=== PATIENT | female | born 1945 | race Caucasian/White ===

== ENCOUNTER → 2020-06-20 11:02 | Outpatient (CLI) | payer MEDICARE, SELFPAY ==
--- NOTE | ~2020-06-20 | DEXA_ITS ---
Bone Density Report Name: Jaylene Funes Age: 74 Sex: Female Ethnicity: White Date of : 1945 Indication: postmenopausal; screening for osteoporosis; height loss; asthma or emphysema; hysterectomy; Referring Provider: NELLY, CONRADO Torrez Study: Bone densitometry was performed. Exam Date: June 20, 2020 Accession number: [id number] Bone Density: Region BMD T-score Z-score Classification AP Spine (L1, L3, L4) 1.075 0.2 2.5 Normal Femoral Neck (Left) 0.814 -0.3 1.6 Normal Total Hip (Left) 1.011 0.6 2.2 Normal Femoral Neck (Right) 0.828 -0.2 1.8 Normal Total Hip (Right) 0.984 0.3 2.0 Normal Total Hip Mean 0.998 0.5 2.1 Normal World Health Organization criteria for BMD impression classify patients as: Normal (T-score at or above -1.0), Osteopenia (T-score between -1.0 and -2.5), or Osteoporosis (T-score at or below -2.5). 10-year Fracture Risk: FRAX not reported because: All T-scores for Spine Total, Hip Total, Femoral Neck at or above -1.0 Clinical Information Provided by Patient: Has the following medical conditions: Asthma or Emphysema, Hysterectomy Patient maximum height was 62 Menopause Age: 37 No regular weight bearing exercise Drinks caffeinated beverages Onset of menses at age 16 Number of children 2 Impression: The patient has normal bone mass. Discussion: BONE DENSITY IS ABOVE THE MINIMUM DESIRABLE LEVEL AT ALL SKELETAL SITES TESTED. This patient?s bone mineral density is above the minimum desirable level (T-score -1.0 or better) at all sites measured. The patient should follow a healthful lifestyle (good nutrition with adequate calcium and vitamin D, and appropriate weight-bearing exercise). Follow-Up: Consider repeating this study in 5 years or sooner if there is some new clinical indication. Reported by: MANUEL on 06/20/2020 11:26:00 AM. Reviewed, dictated and finalized at location AJosephine BARAJAS
== END ==
PROVIDERS: PCP Internal Medicine; Visit Provider Internal Medicine
DX: Z13.820 Encounter for screening for osteoporosis (principal); Z78.0 Asymptomatic menopausal state
CPT/HCPCS: 77080

== ENCOUNTER → 2020-07-05 12:29 | Outpatient (CLI) | payer MEDICARE, SELFPAY ==
--- NOTE | ~2020-07-05 | MM_ITS ---
EXAMINATION: MM screening fernando BI w alyson HISTORY: Screening TECHNIQUE: Craniocaudal and mediolateral oblique 3-D tomosynthesis images were obtained and synthetic 2-D images were generated. CAD analysis was submitted and interpreted. COMPARISON: Comparison to multiple prior studies sequentially, with oldest reviewed study dated 01/2013. BREAST PARENCHYMAL COMPOSITION: There are scattered areas of fibroglandular density. FINDINGS: There is no evidence of suspicious mass, calcification, or architectural distortion to sugg est malignancy in either breast. There has been no suspicious interval change. IMPRESSION: 1. No mammographic evidence of malignancy. 2. Recommend routine screening mammography in one year. BI-RADS Category 1: Negative Reviewed, dictated and finalized at location A.
== END ==
PROVIDERS: PCP Internal Medicine; Visit Provider Internal Medicine
DX: Z12.31 Encounter for screening mammogram for malignant neoplasm of breast (principal)
CPT/HCPCS: 77063; 77067

== ENCOUNTER → 2020-08-04 10:07 | Outpatient (CLI) | payer MEDICARE, SELFPAY ==
--- NOTE | ~2020-08-04 | CT_ITS ---
EXAMINATION: CT lung screening DATE: 08/04/2020 10:24 INDICATION: Personal history of nicotine dependence, prior smoker with 40 pack year history TECHNIQUE: Computed tomography (CT) of the chest was performed without intravenous contrast. The dose -length product (DLP) was 199.73 mGy-cm. Automated exposure control and iterative reconstruction tech Single Touch Systems were employed. COMPARISON: 07/10/2019 FINDINGS: There is moderate emphysema. There is a stable 6 mm nodule of the left upper lobe on image 46. There is no pleural effusion or pneumothorax. No pathologically enlarged thoracic lymph nodes are identified. The heart size is normal. There is enlargement of the main and central pulmonary arterie s, consistent with pulmonary hypertension. Calcified coronary artery atherosclerosis is noted. There is severe thoracic spondylosis. IMPRESSION: 1. Lung-RADS category 2: Benign appearance or behavior. Continue annual screening with noncontrast lo w-dose chest CT in 12 months. Reviewed, dictated and finalized at location B. IMPRESSION: 1. Lung-RADS category 2: Benign appearance or behavior. Continue annual screeni ng with noncontrast low-dose chest CT in 12 months.
== END ==
PROVIDERS: PCP Internal Medicine; Visit Provider Nurse Practitioner Family
DX: Z12.2 Encounter for screening for malignant neoplasm of respiratory organs (principal); Z87.891 Personal history of nicotine dependence
CPT/HCPCS: G0297

== ENCOUNTER 2021-12-07 08:55 | Outpatient (CLI) | payer MEDICARE, SELFPAY ==
--- NOTE | 2021-12-07 09:00 | ECG_ITS ---
Measurements Intervals [place] Rate: 60 P: 61 ME: 152 QRS: -62 QRSD: 106 T: 64 QT: 443 QTc: 444 Interpretive Statements SINUS RHYTHM WITH SINUS ARRHYTHMIA INCOMPLETE RIGHT BUNDLE BRANCH BLOCK LEFT ANTERIOR FASCICULAR BLOCK CANNOT RULE OUT SEPTAL INFARCT, AGE INDETERMINATE BASELINE ARTIFACT- V5-V6 ABNORMAL ECG Electronically Signed On 12-07-2021 9:28:45 CLINICAL PSYCHOLOGY PROFESSOR by Yovani Hatfield D.O.
[2021-12-07 09:35] LABS: Anion Gap 7 mmol/L (8-16); Blood Urea Nitrogen 14 mg/dL (7-17); Calcium 9.6 mg/dL (8.4-10.2); Carbon Dioxide 35 mmol/L (22-30); Chloride 101 mmol/L (98-107); Estimated Glomerular Filt Rate 54; Glucose 131 mg/dL (65-110); Sodium 143 mmol/L (137-145)
== END 2021-12-07 08:56 | disposition home or self-care (01) ==
LOC: ANHSURGERY 08:59
PROVIDERS: Anesthesiology; PCP Internal Medicine; Visit Provider Otolaryngology
DX: Z01.818 Encounter for other preprocedural examination (principal); I10 Essential (primary) hypertension; I45.10 Unspecified right bundle-branch block; I44.4 Left anterior fascicular block
CPT/HCPCS: 36415; 80048; 93005

== ENCOUNTER 2021-12-12 00:40 | Day surgery (SDC) | payer MEDICARE, SELFPAY ==
[2021-12-06 12:40] VITALS: BMI 38.7
--- NOTE | 2021-12-06 12:49 | PC.NURSE ---
Report to the Outpatient Waiting Room, entrance under the green pavilion located off [facility], at time _0630 on date __12/12/21 . OR Time: . - You and your visitor will be asked a series of questions to screen for COVID 19 for your protection. - A mask is required within the hospital. - Only one visitor is allowed at this time. Patient visitors will be guided where to wait when not with patient. Preoperative COVID Testing Requirements: No COVID Test needed if: (proof is required; if not received patient will have Rapid Test prior to entry) - Patient has received COVID Vaccine at least 14 days prior to procedure date or - Patient has positive COVID test result within last 90 days of surgery date. COVID Test needed if above criteria is not met If not COVID vaccinated a COVID test must be conducted within 72 hours of surgery and patient is asked to isolate self from time of testing until procedure. You will go to the [facility] for your COVID testing. The [facility] site is located at the corner of [address] [facility]. You will only be called if COVID results are positive and your surgeon may reschedule your elective surgery date. Patients may have clear liquids (water, carbonated beverages, clear teas, apple juice) until 3 hours prior to surgery with a maximum of 20 ounces. - No food from midnight until time of surgery - Infants may have breast milk until 4 hours before surgery, infant formula 6 hours prior to surgery. - Children will be allowed to drink immediately following surgery. If applicable, please bring a bottle or sippy cup to assist with drinking. Juice, water, soda, and popsicles are readily available. For infants on formula, please bring formula the day of surgery. Pacifiers are allowed. Take the following medications with a SIP of water the morning of surgery: ___INHALERS,AMLODIPINE,CARVEDILOL,_FLUOXETINE,LEVOTHYROXINE Medications to discontinue per physician ____ALL VITAMINS AND SUPPLEMENTS 3 DAYS PRE OP Date to take last dose__12/08/21 Please no make-up, nail georgian, hairspray, perfume, deodorant, or body powder the day of surgery. No jewelry (including any body piercings) or valuables the day of surgery, leave them at home. Please take a shower or bath the night before, or the morning of, surgery with an antibacterial soap. Wear comfortable, loose fitting clothing. Children are encouraged to wear pajamas. - Jewelry must be removed prior to entering the operating room. Rings and piercings that are not removed may be cut off. - The hospital will not accept responsibility for valuables. - Please leave all valuables, including medications, at home the day of surgery. If you are going home after surgery, a licensed crew car driver must drive you home. - NO public transportation without another adult. - We recommend that an adult stay with you for 24 hours following discharge. - We also recommend that you do not drive, make important decision, drink alcoholic beverages, or take any drugs that were not prescribed by your health care provider for at least 24 hours after your discharge time. Follow any additional instructions given to you from your surgeon. Telephone instructions given to PATIENT and asked if any additional questions and then verbalized understanding. Patient advised to call surgeon office or pre surgery nurse liaison [phone] if any additional questions.
--- NOTE | 2021-12-11 08:58 | PM.IMHP ---
H&P: HPI History of Present Illness Date/Time: 12/11/21 08:58 Chief Complaint: chronic sinusitis nasal polyps nasal obstruction nasal congestion recurrent sinusitis Narrative: patient presents for planned surgical procedure. No change in symptoms no change in medical history. Review of Systems Constitutional: Constitutional: Denies fatigue, Denies fever(s) and Denies lethargy Eyes: Eyes: Denies blurry vision and Denies change in vision ENT: Reports as per HPI Cardiovascular: Cardiovascular: Denies chest pain Respiratory: Respiratory: Denies cough Endocrine: Endocrine: Denies fatigue Hematologic/Lymphatic: Hematologic/Lymphatic: Denies easy bleeding, Denies easy bruising and Denies lymphadenopathy Allergic/Immunologic: Allergic/Immunologic: Denies seasonal rhinorrhea [facility] Past Medical History Medical History Chronic obstructive pulmonary disease Exercise hypoxemia Family History Family History Sibling Patient's brother is in good health Family history of chronic obstructive pulmonary disease Hypertension Father Acute myocardial infarction, Onset Age: 52 Hypertension Heart disease Mother Family history of respiratory disorder, Onset Age: 80 Family history of chronic obstructive pulmonary disease, Onset Age: 80 Family history of congestive heart failure, Onset Age: 80 Cerebrovascular accident Asthma Social History Social History Smoking packs per day: 2 Smoking cigarettes per day: 40.0 Years smoked: 20 Smoking pack-years: 40.00 Smoking status: Former smoker Tobacco type: cigarettes Smoking end date: 11/25/07 Alcohol intake: never Substance use: never Substance use type: does not use Spiritual care concerns: No Meds Home Medications and Allergies Home Medications Medication Instructions Recorded Confirmed Type albuterol sulfate 2.5 mg/0.5 mL 2.5 mg INHALATION PRN PRN 01/05/20 12/06/21 History solution for nebulization albuterol sulfate 90 mcg/actuation 1 inhalation INHALATION Q4-6H PRN 01/05/20 12/06/21 History breath activated powder inhaler,sensor amlodipine 2.5 mg tablet 2.5 mg PO DAILY 01/05/20 12/06/21 History aspirin 81 mg tablet,delayed 81 mg PO DAILY 01/05/20 12/06/21 History release carvedilol 25 mg tablet 25 mg PO Q12H 01/05/20 12/06/21 History fluticasone fur. 100 mcg-umeclid 1 inhalation INHALATION DAILY 01/05/20 12/06/21 History 62.5 mcg-vilant 25 mcg inhalat.powder levothyroxine 125 mcg tablet 125 mcg PO DAILY 01/05/20 12/06/21 History lisinopril 40 mg tablet 40 mg PO DAILY 01/05/20 12/06/21 History multivitamin 1 cap PO DAILY 01/05/20 12/06/21 History simvastatin 20 mg tablet 20 mg PO DAILY 01/05/20 12/06/21 History furosemide 40 mg tablet 40 mg PO BID tablet 07/05/20 12/06/21 History fluoxetine 20 mg tablet See Rx Instructions .ROUTE 11/20/21 12/06/21 Rx .COMPLEX #90 tablet budesonide 0.25 mg/2 mL suspension See Rx Instructions .ROUTE 11/30/21 12/06/21 Rx for nebulization .COMPLEX #60 ml prednisone 10 mg tablet 10 mg PO DAILY #5 tablet 12/06/21 12/06/21 Rx Allergies Allergy/AdvReac Type Severity Reaction Status Date / Time No Known Allergies Allergy Verified 12/06/21 12:35 Exam Const: General: cooperative, healthy appearing, comfortable, well developed and alert HENMT: Head: normal to inspection, normocephalic and atraumatic Ears: hearing grossly normal bilaterally, external ears normal, TM's normal bilaterally and EAC's normal General nose exam: Normal external nose present, Normal nares present and nasal polyps ( Polyps present) Face and sinus: normal facial exam Mouth: Yes Normal oral and palatal mucosa present, Yes lip normal, Yes tongue normal, Yes oropharynx normal and Yes moist mucous membranes Teeth and
--- NOTE | 2021-12-11 13:53 | WPDANESEPPF ---
Anes - Initial Pre Proc Eval Procedure: Operation Date: 12/12/21 08:00 Proposed Procedures p Image Guided Endoscopic Polypectomy, Bilateral Maxillary Antrostomy, Bilateral Total Ethmoidectomy, Left Sphenoidotomy, Left Frontal Sinusotomy - Kirby Sierra MD Date/Time: 12/11/21 13:53 Surgeon: Kirby Sierra MD Pre Op Diagnosis: chronic sinusitis Patient Data Age: 76 Gender: F Height: 1.57 m Weight: 96.2 kg Allergies Allergy/AdvReac Type Severity Reaction Status Date / Time No Known Allergies Allergy Verified 12/12/21 06:09 Home Medications Medication Instructions Recorded Confirmed Type albuterol sulfate 2.5 mg/0.5 mL 2.5 mg INHALATION PRN PRN 01/05/20 12/12/21 History solution for nebulization albuterol sulfate 90 mcg/actuation 1 inhalation INHALATION Q4-6H PRN 01/05/20 12/12/21 History breath activated powder inhaler,sensor amlodipine 2.5 mg tablet 2.5 mg PO DAILY 01/05/20 12/12/21 History aspirin 81 mg tablet,delayed 81 mg PO DAILY 01/05/20 12/12/21 History release carvedilol 25 mg tablet 25 mg PO Q12H 01/05/20 12/12/21 History fluticasone fur. 100 mcg-umeclid 1 inhalation INHALATION DAILY 01/05/20 12/12/21 History 62.5 mcg-vilant 25 mcg inhalat.powder levothyroxine 125 mcg tablet 125 mcg PO DAILY 01/05/20 12/12/21 History lisinopril 40 mg tablet 40 mg PO DAILY 01/05/20 12/12/21 History multivitamin 1 cap PO DAILY 01/05/20 12/12/21 History simvastatin 20 mg tablet 20 mg PO DAILY 01/05/20 12/12/21 History furosemide 40 mg tablet 40 mg PO BID tablet 07/05/20 12/12/21 History fluoxetine 20 mg tablet See Rx Instructions .ROUTE 11/20/21 12/12/21 Rx .COMPLEX #90 tablet budesonide 0.25 mg/2 mL suspension See Rx Instructions .ROUTE 11/30/21 12/12/21 Rx for nebulization .COMPLEX #60 ml ECG: Date of Service: 12/07/21 Procedure(s): CA 12 lead EKG Accession Number(s): [id number] cc: ~ Measurements Intervals [place] Rate: 60 P: 61 VA: 152 QRS: -62 QRSD: 106 T: 64 QT: 443 QTc: 444 Interpretive Statements SINUS RHYTHM WITH SINUS ARRHYTHMIA INCOMPLETE RIGHT BUNDLE BRANCH BLOCK LEFT ANTERIOR FASCICULAR BLOCK CANNOT RULE OUT SEPTAL INFARCT, AGE INDETERMINATE BASELINE ARTIFACT- V5-V6 ABNORMAL ECG Electronically Signed On 12-07-2021 9:28:45 CITY CONTROLLER by Yovani Hatfield D.O. Patient hx anesthesia problems: none Family hx anesthesia problems: none Results Review: All pre-operative results and documents have been reviewed as part of the pre-operative evaluation. [facility] Past Medical History Medical History (Updated 12/11/21 @ 13:54 by Liborio Armstrong MD) Asthma Chronic obstructive pulmonary disease Chronic sinusitis Depression Exercise hypoxemia Hyperlipidemia Hypertension RAFAEL (obstructive sleep apnea) Sleep apnea Family History Family History Sibling Patient's brother is in good health Family history of chronic obstructive pulmonary disease Hypertension Father Acute myocardial infarction, Onset Age: 52 Hypertension Heart disease Mother Family history of respiratory disorder, Onset Age: 80 Family history of chronic obstructive pulmonary disease, Onset Age: 80 Family history of congestive heart failure, Onset Age: 80 Cerebrovascular accident Asthma Social History Social History Smoking packs per day: 2 Smoking cigarettes per day: 40.0 Years smoked: 20 Smoking pack-years: 40.00 Smoking status: Former smoker Tobacco type: cigarettes Smoking end date: 11/25/07 Alcohol intake: never Substance use: never Substance use type:
[2021-12-12] VITALS (24 sets, daily range): BP systolic 107–145; BP diastolic 50–89; PULSE 54–74; RESP 14–20; TEMP 36.3–37; O2SAT 71–95
[2021-12-12] MEDS: ACETAMINOPHEN 500 MG TABLET 1000 MG PO (06:17)
[2021-12-12] MEDS: LACTATED RINGERS 1,000 ML 30 ML IV CONT ×3 (06:37→13:58)
--- NOTE | 2021-12-12 07:14 | WPDHPUPDATE1 ---
History and Physical Update Update Date/Time: 12/12/21 07:14 History and Physical has been reviewed, including an updated exam of the patient. There are NO changes in the patient's condition. Risks, benefits, and alternatives have been discussed and questions answered. Patient agrees to proceed with procedure.
[2021-12-12] MEDS: ceFAZolin 2 GM/D5W 50 ML 2 GM/50 ML BAG IVPB (07:31)
[2021-12-12] MEDS: OXYMETAZOLINE HCL 0.05% NAS 15 ML BTL (*BKC) 1 SPRAY NASAL (08:04)
[2021-12-12] MEDS: LIDO 1%/EPINEPHRINE 1:100,000 50 ML VIAL 30 ML INFILTRATE (09:07)
--- NOTE | 2021-12-12 09:30 | W.PM.PROC2 ---
Procedure Note - Detailed Date of Procedure 12/12/21 Pre-op Diagnosis chronic sinusitis, nasal polyps, nasal tumor, pedrito bullosa bilaterally, nasal obstruction, nasal congestion Post-op Diagnosis same Procedure Performed 1. Bilateral section pedrito bullosa, 2. Polypectomy, 3 bilateral endoscopic image guided maxillary antrostomy, 4. Bilateral endoscopic total ethmoidectomies image guided, 5. Left-sided image guided endoscopic sphenoidotomy, 6. Left-sided image guided endoscopic frontal sinusotomy Surgeon Kirby Sierra MD Anesthesia general Indications See above Findings Polypoid mass bilaterally medial to the middle turbinate left greater than right debrided to skull base. Polypoid edema of the operated cells/sinuses left greater than right scant mucoid purulence on the left. No complications Description of Procedure Patient correctly identified consent verified. Patient brought operating room. Time-out performed. Image guidance initiated general anesthesia induced endotracheal tube secured taped left lower lip. Afrin-soaked pledgets placed for 5 minutes then removed. Patient prepped and draped. Second time-out performed. 0 degree endoscope utilized bilateral nasal passages exam with the aforementioned findings noted. Polypoid mass debrided on the right side with image guided microdebrider to skull base it was medial to the middle turbinate. Was also biopsied. Pedrito resected after being injected with 1 cc of 1% lidocaine with 1 100,000 parts epinephrine. This was the only type of anesthetic utilized. Cut inferiorly with a straight through cut and then resected with a straight through cut microdebrider. Maxillary antrostomy to performed bilaterally using straight through cut double ball tip probe and backbiter. Great care was taken not to enter the orbit which overhang somewhat into the nasal passage. Total ethmoidectomy performed bilaterally using Kerrison image guided straight suction and image guided microdebrider. Great care was taken not to enter the skull base or the orbit. The left had some polypoid edema and mucoid purulence the right only had mild polypoid edema. On the left side the sphenoid os was located with the image guided suction and opened with 1 in 3 Kerrison polypoid edema was located hears well. 70 degree scope was then utilized to perform left-sided frontal sinusotomy with image guided suction Hosemann punch and Cobra. This was easily cannulated again there was polypoid edema here. On the left side was much more tumor/polyp tissue medial to the middle turbinate which was debrided to the skull base. Bleeding was controlled using the intermittent application of Afrin-soaked pledgets. Following the procedure the middle turbinates were medialized and held in place using NasoPore packing sorry Nova pack packing. Total blood loss approximately 100 cc I performed all dictated portions of the procedure. Left-sided mass was also biopsied. There were no complications. Care the patient was turned over to Anesthesiology. Estimated Blood Loss 100 Drains No Packing Yes (Nova pack) Pathology yes Complications No immediate complications Condition stable Disposition PACU
--- NOTE | 2021-12-12 09:55 | SUR.PHASEI ---
0944 - drip pad changed. blood dripping from nose. pt indicates that she is swallowing blood. dr. araujo paged and at bedside. dr. araujo at bedside assessing pt.
[2021-12-12] MEDS: TRANEXAMIC ACID 1,000 MG/10 ML AMPUL 1000 MG IV PUSH (10:54)
--- NOTE | 2021-12-12 11:33 | SUR.PHASEI ---
1130 - dr. arguelles called and okayed to go to op recovery
--- NOTE | 2021-12-12 12:45 | WPDHPUPDATE1 ---
History and Physical Update Update Date/Time: 12/12/21 12:45 Patient had postoperative hemorrhage necessitating operative intervention. Shared decision was made to go to the OR for control of postoperative epistaxis. Will need 0 degree endoscope as well as suction Bovie electrocautery. Thank you
--- NOTE | 2021-12-12 13:12 | SUR.PHASEII ---
1200 - Dr. Sierra in room. Aware of O2 sats and bleeding. Suctioning of mouth and nose and drip pad changed by Dr. Sierra. Continue to monitor. 1210 - Switched from nasal cannula to face mask per Dr. Sierra. Dr. Sierra in room examining pt. Continue to monitor. 1215 - Pt's son given update on pt condition re: bleeding and O2 sats. 1220 - Dr. Sierra in room examining pt. Rhino rockets placed in bilateral nares by Dr. Sierra. Continue to monitor. 1240 - Dr. Sierra in room examining pt. Decision made to return to OR for control of post-operative epitaxis. OR notified. Continue to monitor. 1250 - Pt transferred to OR per stretcher. 1255 - Pt's son given update of return to OR. Procedure and recovery estimated time discussed with son. No further questions at this time.
--- NOTE | 2021-12-12 13:50 | W.PM.PROC2 ---
Procedure Note - Detailed Date of Procedure 12/12/21 Pre-op Diagnosis chronic sinusitis Post-op Diagnosis same Procedure Performed Nasal endoscopy control of epistaxis with Bovie suction electrocautery Surgeon Kirby Sierra MD Anesthesia general Indications Epistaxis Findings Again the polypoid tissue medial to the middle turbinates was oozing blood this was cauterized, there was also blood emanating from the left posterior septal artery region this artery was completely cauterized and taken. Following the procedure everything appeared much more hemostatic and there is no active bleeding. Nasal sorry no pack was again placed Description of Procedure Patient correctly identified consent verified procedure marked urgent. Patient brought operating room. Time-out performed. General anesthesia induced I was there to assist. Endotracheal tube secured taped the left lower lip. Patient prepped and draped. Second time-out performed. Rhino rockets removed. Bleeding noted from the polypoid tissue medial to the middle turbinates bilaterally left more than right. Bleeding also noted from the left posterior septal region. These were all cauterized with Bovie suction electrocautery at a setting of 10 and 20. No further active bleeding was noted hemostasis was excellent the no pack which was previously suctioned out was replaced. Watched the patient for several minutes. To ensure no further bleeding was noted. I performed all dictated portions of procedure. Cbc was ordered. Care the patient was turned over to Anesthesiology. Estimated Blood Loss 25 Drains No Packing Yes (Novapak) Pathology none sent Complications No immediate complications Condition stable Disposition PACU
[2021-12-12 14:25] LABS: Hematocrit 38.2 % (37.0-47.0); Hemoglobin 11.9 g/dL (12.0-15.0); Mean Corpuscular HGB Conc 31.2 g/dl (32-36); Mean Corpuscular Hemoglobin 29.8 pg (26-34); Mean Corpuscular Volume 95.5 fl (80-100); Mean Platelet Volume 9.8 fl (7.4-10.4); Platelet Count Result 246 k/mm3 (150-375); White Blood Count 11.1 K/mm3 (4.5-10.0)
--- NOTE | 2021-12-12 15:01 | SUR.PHASEI ---
[address] arguelles,okayed for pt to transfer to op with o2 sat 88% on o2 4ll management development specialist
[2021-12-12] MEDS: oxyCODONE HCL (*CRX) 5 MG TAB IR PO (15:32)
== END 2021-12-12 16:05 | disposition home or self-care (01) ==
PROVIDERS: PCP Internal Medicine; Visit Provider Otolaryngology
PROC: (CPT 31256; principal; 2021-12-12 08:00)
DX: J32.9 Chronic sinusitis, unspecified (principal); J95.830 Postprocedural hemorrhage of a respiratory system organ or structure following a respiratory system procedure; Y83.8 Other surgical procedures as the cause of abnormal reaction of the patient, or of later complication, without mention of misadventure at the time of the procedure; J33.9 Nasal polyp, unspecified; R09.81 Nasal congestion; J34.89 Other specified disorders of nose and nasal sinuses; J33.8 Other polyp of sinus; J44.9 Chronic obstructive pulmonary disease, unspecified; I10 Essential (primary) hypertension; E78.5 Hyperlipidemia, unspecified; G47.33 Obstructive sleep apnea (adult) (pediatric); Z87.891 Personal history of nicotine dependence; E66.9 Obesity, unspecified; Z68.38 Body mass index [BMI] 38.0-38.9, adult; Z79.51 Long term (current) use of inhaled steroids; Z79.82 Long term (current) use of aspirin
CPT/HCPCS: 31256; 31257; 31253; 31240; 61782; 31238; 36415; 80048; 85027; 86850; 86900; 86901; 88304; 93005; A9270; J0330; J0360; J0461; J0690; J1100; J2250; J2370; J2405; J2704; J3010; J7120

== ENCOUNTER 2022-01-18 07:53 | Outpatient (CLI) | payer MEDICARE, SELFPAY ==
--- NOTE | ~2022-01-18 | CT_ITS ---
EXAMINATION: CT lung screening DATE: 01/18/2022 08:19 INDICATION: Personal history of nicotine dependence TECHNIQUE: Computed tomography (CT) of the chest was performed without intravenous contrast. The dose -length product was 216.77 mGy-cm. COMPARISON: CT dated 08/04/2020 and 07/10/2019 FINDINGS: Stable subsolid 5-6 millimeter left upper lobe nodule, image 49. No significant pleural or pericardial effusion. No thoracic lymphadenopathy. There is atherosclerosis. No evidence for aneurysm . Heart size is normal. The upper abdomen is unremarkable. There are a few scattered calcified granul omas of the lung parenchyma. No focal airspace consolidation. No new pulmonary nodules or masses. Mil d emphysema. No endobronchial lesions. No pneumothorax. Moderate thoracic spondylosis with accentuate d kyphosis. IMPRESSION: 1. Lung-RADS category 2: Benign appearance or behavior. Continue annual screening with noncontrast lo w-dose chest CT in 12 months. Reviewed, dictated and finalized at location B. LING LINE ATTENDANT IMPRESSION: 1. Lung-RADS category 2: Benign appearance or behavior. Continue annual screeni ng with noncontrast low-dose chest CT in 12 months.
== END 2022-01-18 07:54 | disposition home or self-care (01) ==
PROVIDERS: PCP Internal Medicine; Visit Provider Nurse Practitioner Family
DX: Z87.891 Personal history of nicotine dependence (principal)
CPT/HCPCS: 71271

== ENCOUNTER 2022-05-21 08:07 | Outpatient (CLI) | payer MEDICARE, SELFPAY ==
--- NOTE | 2022-05-29 07:47 | WPDSLEEPSTUD ---
Sleep Study Date of Study: 05/21/22 Ordering Provider: Ernesto Mcmullen APRN Interpreting Physician: Rosalba Gill MD Sleep Study Type: CPAP Titration Height: 1.57 m Weight: 95.254 kg Body Mass Index: 38.4 Neck Circumference (inches): 17 [place]: 9 Reason for Sleep Study RAFAEL, CPAP was recalled, needs repeat titration * 07/08/2016- home sleep test - AHI 17.7,m lowest saturation 61% * 08/06/2016- CPAP titration optimal pressure 15 cm Sleep History Jaylene Funes is a 76 year old female with COPD and obstructive sleep apnea on CPAP. Her CPAP machine was affected by the recall but she was not aware of this. It was time for her to have a new titration. She frequently awakens from sleep feeling short of breath. She occasionally awakens at night with heartburn, belching or coughing. She frequently snores, occasionally loudly enough that others complain about it. She occasionally has trouble sleeping with a cold. She occasionally wakes up gasping for breath at night. She occasionally has breathing problems at night observed by others. She rarely sweats excessively night. She occasionally notices her heart pounding or beating irregularly at night. She rarely falls asleep during the day, rarely falls asleep involuntarily. She never falls asleep while driving. She does not have daytime difficulties due to excessive sleepiness. She does not feel paralyzed on waking or falling asleep. She occasionally feels afraid to go to sleep. She rarely has nightmares. She occasionally remembers her dreams. She occasionally has racing thoughts. She occasionally feels sad or depressed. She occasionally has anxiety. She occasionally has muscular tension and notices parts of her body jerking. She occasionally kicks at night. She occasionally has crawling and aching feelings in her legs and leg pain during the night. She rarely has morning jaw pain. She occasionally grinds her teeth during sleep. She occasionally is bothered by pain during the day and awakened by pain at night. She occasionally wakes up feeling stiff in the morning with sore or achy muscles and pain in the neck and spine. She has depression and memory problems. Normal bedtime is between 9:30 p.m. and 10:30 p.m., taking a variable amount of time to fall asleep. She typically wakes up twice at night to watch TV or play games on her tablet. It takes her 1/2 hour to fall asleep again. She wakes up in the morning between 5:00 a.m. and 6:00 a.m.. Weekend schedule is the same. She occasionally takes naps in the day. On occasion she awakens feeling refreshed. Habits: Tobacco quit 20 years ago. Caffeine a qt a day. No alcohol or recreational drugs. [facility] Past Medical History Medical History (Updated 05/29/22 @ 08:22 by Rosalba Gill MD) Asthma Chronic obstructive pulmonary disease Chronic sinusitis Depression Exercise hypoxemia Hyperlipidemia Hypertension RAFAEL (obstructive sleep apnea) Sleep apnea Surgical History Surgical History (Updated 05/29/22 @ 08:00 by Rosalba Gill MD) History of hysterectomy History of nasal polypectomy Hx of tonsillectomy Family History Family History Sibling Patient's brother is in good health Family history of chronic obstructive pulmonary disease Hypertension Father Acute myocardial infarction, Onset Age: 52 Hypertension Heart disease Mother Family history of respiratory disorder, Onset Age: 80 Family history of chronic obstructive pulmonary disease, Onset Age: 80 Family history of congestive heart failure, Onset Age: 80 Cerebrovascular accident Asthma Social History Social History Smoking packs per day: 2 Smoking cigarettes per day: 40.0 Years smoked: 20 Smoking pack-years: 40.00 Smoking status: Former smoker Tobacco type: cigarettes Smoking end date: 11/25/07 [place]
[2022-05-29 08:29] VITALS: BMI 38.4
== END 2022-05-22 06:42 | disposition home or self-care (01) ==
LOC: ANHCSM 08:07
PROVIDERS: PCP Internal Medicine; Visit Provider Nurse Practitioner Family
DX: G47.33 Obstructive sleep apnea (adult) (pediatric) (principal); G47.34 Idiopathic sleep related nonobstructive alveolar hypoventilation; G25.81 Restless legs syndrome
CPT/HCPCS: 95811

== ENCOUNTER 2022-05-24 07:46 | Outpatient (CLI) | payer MEDICARE, SELFPAY ==
[2022-05-24] VITALS (7 sets, daily range): PULSE 62–93; O2SAT 82–96
--- NOTE | 2022-05-24 09:19 | HOMEO2EVAL ---
Evaluation was performed at [facility] Home Oxygen Evaluation RC: Home Oxygen (O2) Evaluation Start: 05/24/22 09:08 Freq: Status: Active Protocol: RPE Activity Type Activity Date Activity User E-sign Co-sign Detail Recorded Client Recorded Date Recorded By Document 05/24/22 08:30 [email or web address] [email or web address] 05/24/22 09:19 FREDDIE Document 05/24/22 08:31 FREDDIE [email or web address] 05/24/22 09:19 FREDDIE Document 05/24/22 08:32 FREDDIE [email or web address] 05/24/22 09:19 FREDDIE Document 05/24/22 08:35 FREDDIE [email or web address] 05/24/22 09:19 FREDDIE Document 05/24/22 08:36 FREDDIE [email or web address] 05/24/22 09:19 FREDDIE Document 05/24/22 08:37 FREDDIE [email or web address] 05/24/22 09:19 FREDDIE Document 05/24/22 08:45 FREDDIE [email or web address] 05/24/22 09:19 FREDDIE 05/24/22 05/24/22 05/24/22 08:30 08:31 08:32 Home O2 Evaluation Test Phase Resting Resting Resting Oxygen Delivery Room Air Nasal Cannula Nasal Cannula Oxygen Flow Rate (L/min) 1 2 Pulse Oximetry (90-100 %) 86 L 87 L 94 Pulse Rate (60-100 beats/min) 62 Ambulation Distance (feet) Ambulation Distance (meters) Home Oxygen Evaluation Comments Treatment Charges O2 Evaluation - Outpatient 05/24/22 05/24/22 05/24/22 08:35 08:36 08:37 Home O2 Evaluation Test Phase Exercise Exercise Exercise Oxygen Delivery Nasal Cannula Nasal Cannula Nasal Cannula Oxygen Flow Rate (L/min) 2 3 4 Pulse Oximetry (90-100 %) 82 L 87 L 95 Pulse Rate (60-100 beats/min) 86 93 Ambulation Distance (feet) 400 Ambulation Distance (meters) 121.91 Home Oxygen Evaluation Comments Pt requires 2L at rest and 4L with activity. Pt able to use conserving device with resting, continuous flow with exertion. Treatment Charges 05/24/22 08:45 Home O2 Evaluation Test Phase Resting Oxygen Delivery Nasal Cannula Oxygen Flow Rate (L/min) 2 Pulse Oximetry (90-100 %) 96 Pulse Rate (60-100 beats/min) 66 Ambulation Distance (feet) Ambulation Distance (meters) Home Oxygen Evaluation Comments Treatment Charges
--- NOTE | 2022-05-24 09:20 | PCRCNOTE ---
Home O2 eval faxed to office staff.
== END 2022-05-24 07:47 | disposition home or self-care (01) ==
LOC: ANHPFT 07:51
PROVIDERS: PCP Internal Medicine; Visit Provider Nurse Practitioner Family
DX: R09.02 Hypoxemia (principal)
CPT/HCPCS: 94618

== ENCOUNTER → 2022-06-14 10:29 | Outpatient (CLI) | payer MEDICARE, SELFPAY ==
--- NOTE | ~2022-06-14 | MM_ITS ---
EXAMINATION: MM screening [facility] BI w alyson HISTORY: Screening TECHNIQUE: Craniocaudal and mediolateral oblique 3-D tomosynthesis images were obtained and synthetic 2-D images were generated. CAD analysis was submitted and interpreted. COMPARISON: Comparison to multiple prior studies sequentially, with oldest reviewed study dated 01/2013. BREAST PARENCHYMAL COMPOSITION: There are scattered areas of fibroglandular density. FINDINGS: There is no evidence of suspicious mass, calcification, or architectural distortion to sugg est malignancy in either breast. There has been no suspicious interval change. IMPRESSION: 1. No mammographic evidence of malignancy. 2. Recommend routine screening mammography in one year. BI-RADS Category 1: Negative Reviewed, dictated and finalized at location A.
== END ==
PROVIDERS: PCP Internal Medicine; Visit Provider Internal Medicine
DX: Z12.31 Encounter for screening mammogram for malignant neoplasm of breast (principal)
CPT/HCPCS: 77063; 77067

== ENCOUNTER 2023-01-21 09:01 | Outpatient (CLI) | payer MEDICARE, SELFPAY ==
--- NOTE | ~2023-01-21 | CT_ITS ---
EXAMINATION: CT lung screening DATE: 01/21/2023 09:32 INDICATION: Lung cancer screening. History of tobacco dependence. TECHNIQUE: Computed tomography (CT) of the chest was performed without intravenous contrast. The dose -length product was 163.29 mGy-cm. Automated exposure control and iterative reconstruction technique were employed. COMPARISON: CT dated 01/18/2022 FINDINGS: Cardiomegaly. No significant pleural or pericardial effusion. No thoracic lymphadenopathy. There is atherosclerosis of the aorta and coronary arteries. The upper abdomen is unremarkable. There is emphysema. No endobronchial lesions. Stable subsolid nodule left upper lobe, image 39 measuring 6 mm. There are a few scattered calcified granulomas. No new pulmonary nodules or masses. IMPRESSION: 1. Lung-RADS category 2: Benign appearance or behavior. Continue annual screening with noncontrast lo w-dose chest CT in 12 months. Reviewed, dictated and finalized at location B. O [employer] IMPRESSION: 1. Lung-RADS category 2: Benign appearance or behavior. Continue annual screeni ng with noncontrast low-dose chest CT in 12 months.
== END 2023-01-21 09:02 | disposition home or self-care (01) ==
PROVIDERS: PCP Internal Medicine; Visit Provider Nurse Practitioner Family
DX: Z12.2 Encounter for screening for malignant neoplasm of respiratory organs (principal); Z87.891 Personal history of nicotine dependence
CPT/HCPCS: 71271

== ENCOUNTER → 2023-07-02 10:03 | Outpatient (CLI) | payer MEDICARE, SELFPAY ==
--- NOTE | ~2023-07-02 | DEXA_ITS ---
Bone Density Report Name: KULWANT GREEN Age: 77 Sex: Female Ethnicity: White Date of : 1945 Indication: postmenopausal; screening for osteoporosis; height loss; asthma or emphysema; hysterectomy; Referring Provider: NELLY, CONRADO Torrez Study: Bone densitometry was performed. Exam Date: July 02, 2023 Accession number: [id number] Bone Density: Region BMD T-score Z-score Classification AP Spine (L1, L3, L4) 1.088 0.3 2.8 Normal Femoral Neck (Left) 0.878 0.3 2.4 Normal Total Hip (Left) 1.045 0.8 2.7 Normal Femoral Neck (Right) 0.903 0.5 2.6 Normal Total Hip (Right) 1.024 0.7 2.5 Normal Total Hip Mean 1.035 0.8 2.6 Normal World Health Organization criteria for BMD impression classify patients as: Normal (T-score at or above -1.0), Osteopenia (T-score between -1.0 and -2.5), or Osteoporosis (T-score at or below -2.5). 10-year Fracture Risk: FRAX not reported because: All T-scores for Spine Total, Hip Total, Femoral Neck at or above -1.0 Previous Exams: Region Exam Age BMD T-score BMD Change BMD Change Date g/cm2 vs Baseline vs Previous AP Spine(L1, L3, L4) 07/02/2023 77 1.088 0.3 0.013 0.013 06/20/2020 74 1.075 0.2 Total Hip(Left) 07/02/2023 77 1.045 0.8 0.035 0.035 06/20/2020 74 1.011 0.6 Total Hip(Right) 07/02/2023 77 1.024 0.7 0.040 0.040 06/20/2020 74 0.984 0.3 *Denotes significance at 95% confidence level, LSC for AP Spine = 0.022 g/cm2, LSC for Total Hip = 0.027 g/cm2 Clinical Information Provided by Patient: Has used the following medications: Vitamin D Has the following medical conditions: Asthma or Emphysema, Hysterectomy Patient maximum height was 62 Menopause Age: 37 Drinks caffeinated beverages Onset of menses at age 16 Number of children 2 Impression: The patient has normal bone mass. No significant bone loss was observed. Discussion: LOW RISK OF FRACTURE; BONE DENSITY IS WELL ABOVE THE MINIMUM DESIRABLE LEVEL AND ABOVE AVERAGE FOR AGE AND SEX AT ALL SKELETAL SITES TESTED. This person's bone density is above expected limits for age and sex. This is rarely clinically significant, but should be pursued if there are significant musculoskeletal complaints. The patient should follow a healthful lifestyle (good nutrition with adequate calcium and vitamin D, and appropriate weight-bearing exercise). Follow-Up: Consider repeating this s
== END ==
PROVIDERS: PCP Internal Medicine; Visit Provider Internal Medicine
DX: M81.0 Age-related osteoporosis without current pathological fracture (principal)
CPT/HCPCS: 77080

== ENCOUNTER 2024-01-03 15:39 | Outpatient (CLI) | payer MEDICARE, SELFPAY ==
--- NOTE | ~2024-01-03 | CT_ITS ---
EXAMINATION:CT diagnostic chest wo con DATE: 01/03/2024 15:59 INDICATION: Solitary pulmonary nodule. TECHNIQUE: Computed tomography (CT) of the chest was performed without intravenous contrast. Automate d exposure control and iterative reconstruction technique were employed. The dose-length product (DLP ) was 266.06 mGy-cm. COMPARISON: Chest CT 01/21/2023 FINDINGS: There is mild emphysema. There are a few scattered 2 mm nodules in the lungs. A calcified l eft lung nodule is consistent with old granulomatous disease. There is a 3 mm nodule in right upper l obe. There is a stable 6 mm part-solid nodule in left upper lobe. There is mild atelectasis bilateral ly. No pleural effusion. Cardiomegaly is noted. There are coronary artery calcifications. No pericard ial effusion. The central pulmonary arteries are enlarged, consistent with pulmonary arterial hyperte nsion. There is mild mediastinal lymphadenopathy, likely reactive. IMPRESSION: 1. Lung-RADS category 2: Benign appearance or behavior. Reviewed, dictated and finalized at location E. [place]
== END 2024-01-03 15:40 | disposition home or self-care (01) ==
PROVIDERS: PCP Internal Medicine; Visit Provider Nurse Practitioner Family
DX: R91.1 Solitary pulmonary nodule (principal)
CPT/HCPCS: 71250

== ENCOUNTER 2024-07-16 13:43 | Inpatient (IN) | payer MEDICARE, SELFPAY ==
[2024-07-16] VITALS (17 sets, daily range): BP systolic 127–167; BP diastolic 64–74; PULSE 60–71; RESP 18–32; TEMP 36.3–36.6; O2SAT 91–97; BMI 41.1
--- NOTE | ~2024-07-16 | XR_ITS ---
EXAMINATION: XR chest 2V DATE: 07/16/2024 14:30 INDICATION: Shortness of breath. TECHNIQUE: Frontal and lateral views of the chest were obtained. COMPARISON: Chest 2 views 07/17/2016, chest CT 01/03/2024 FINDINGS: There is a diffuse interstitial pattern, consistent mild pulmonary edema. No pleural effusi on or pneumothorax. Cardiomegaly is noted. IMPRESSION: 1. Mild pulmonary edema. 2. Cardiomegaly. Reviewed, dictated and finalized at location A.
--- NOTE | ~2024-07-16 | US_ITS ---
EXAMINATION:US venous doppler LE BI INDICATION:Bilateral leg swelling TECHNIQUE: Multiple grayscale, color flow and Doppler images of the right and left lower extremity de ep venous systems were obtained and reviewed. COMPARISON:No prior studies for comparison. FINDINGS: The common femoral, superficial femoral and popliteal veins demonstrate normal respiratory variation, augmentation and compressibility. Color flow is also seen within the posterior tibial, pe roneal, greater saphenous and profunda veins. IMPRESSION: 1: No lower extremity deep venous thrombosis. Reviewed, dictated and finalized at location B.
--- NOTE | ~2024-07-16 | CT_ITS ---
CTA chest PE protocol Ordering provider: Mary Vazquez PA-C History: 78 years Female with . R/O PE . Comparison: None. Technique: CT angiogram chest was performed following timed intravenous injection of contrast. Thin s lice axial images and reformatted coronal images were obtained. Three dimensional reformatted images of the chest were also obtained using a [employer] workstation. . Automated exposure control and iterati ve reconstruction technique were employed. The dose-length product was 684.77 mGy-cm. 100 mL Omnipaqu e 350 was given IV. The Findings: PULMONARY ARTERIES: No pulmonary embolus. VISUALIZED THORACIC INLET: Normal. MEDIASTINUM: Aorta/coronary arteries: Mild atheromatous disease. Heart/other: The heart is slightly enlarged. The main pulmonary artery is slightly widened suggestiv e of pulmonary hypertension. The artery measures 4.1 cm. Lymph nodes: No mediastinal or hilar adenopathy. Secretions or soft tissue density are seen in the area of the nikolas. LUNGS: No pulmonary nodules or masses. No infiltrates or effusions. No pneumothorax. Underlying emphysematou s changes. Dependent atelectatic changes. VISUALIZED UPPER ABDOMEN: Small hypodensity in the body of the pancreas which may be a tiny cyst. Oth erwise, the visualized upper abdomen is normal. MUSCULOSKELETAL: Soft tissues: The superficial soft tissues are normal. Bones: Moderate degenerative changes of the spine. IMPRESSION: 1. No pulmonary embolism. 2. No acute cardiopulmonary pathology. 3. Secretions and less likely soft tissue density in the area of the nikolas. 4. Prominent main pulmonary artery suggestive of pulmonary hypertension. Reviewed, dictated and finalized at location A.
--- NOTE | 2024-07-16 13:57 | ECG_ITS ---
Test Date: 2024-07-16 13:53:27 Measurements Intervals Tow Rate: 62 P: 31 UT: 160 QRS: -65 QRSD: 102 T: 61 QT: 408 QTc: 416 Interpretive Statements SINUS RHYTHM LEFT AXIS DEVIATION [QRS AXIS < -30] INCOMPLETE RIGHT BUNDLE BRANCH BLOCK [90+ ms QRS DURATION, TERMINAL R IN V1/V2, 40+ ms S IN I/aVL/V4/V5/V6] POSSIBLE ANTERIOR MYOCARDIAL INFARCTION , OF INDETERMINATE AGE [30 ms Q WAVE IN V3/V4, OR R < 0.2 mV IN V4] No previous ECG available for comparison Electronically Signed On 07-16-2024 15:17:48 CDT by Jet Dick M.D.
[2024-07-16 14:12] LABS: Basophils Absolute Auto 0.1 K/mm3 (0.0-0.1); Basophils Percent Auto 0.5 % (0.2-1.2); Eosinophils Absolute Auto 1.3 K/mm3 (0-0.3); Eosinophils Percent Auto 11.7 % (0-4.4); Hematocrit 38.6 % (37.0-47.0); Hemoglobin 11.2 g/dL (12.0-15.0); Immature Granulocyte Absolute 0.16 K/mm3 (0.00-0.031); Immature Granulocyte Percent A 1.5 % (0-0.5); Lymphocytes Absolute Auto 1.13 K/mm3 (0.9-3.2); Lymphocytes Percent Auto 10.3 % (18.3-44.2); Mean Corpuscular Hemoglobin 28.6 pg (26-34); Mean Corpuscular Volume 98.5 fl (80-100); Mean Platelet Volume 9.5 fl (7.4-10.4); Monocytes Absolute Auto 0.9 K/mm3 (0.1-0.6); Monocytes Percent Auto 8.4 % (2.6-8.5); Neutrophils Absolute Auto 7.4 K/mm3 (1.3-6.7); Neutrophils Percent Auto 67.6 % (45.5-73.1); Platelet Count Result 232 k/mm3 (150-375); Red Blood Count 3.92 M/mm3 (4.2-5.4); Red Cell Distribution Width 13.7 % (11.5-14.5); White Blood Count 10.9 K/mm3 (4.5-10.0)
[2024-07-16 14:21] LABS: Lactic Acid Reflex 0.7 mmol/L (0.7-2.0)
[2024-07-16 14:31] LABS: D Dimer 0.52 ug/mL (<0.48)
[2024-07-16 14:33] LABS: NT Pro B Type Natriuretic Pept 1380 pg/mL (19.9-100); Troponin I < 0.012 ng/mL (0.000-0.034)
[2024-07-16 14:38] LABS: Anisocytosis 1+; Hypochromasia 1+; Platelet Estimate Adequate (Adequate); Schistocytes None Seen
[2024-07-16 14:49] LABS: Blood Urea Nitrogen 17 mg/dL (7-17); Carbon Dioxide > 40 mmol/L (22-30); Chloride 85 mmol/L (98-107); Potassium 4.1 mmol/L (3.4-5.0); Sodium 141 mmol/L (137-145)
[2024-07-16 14:50] LABS: Alveolar/Arterial O2 Gradient 48.6 mmHg; Base Excess ABG 22.9 mEq/l (+/-2.0); Carboxyhemoglobin 0.8 % THb (0-2.0); Fractional Inspired Oxygen 40 %; HCO3 ABG 54.9 mEq/l (22.0-26.0); Methemoglobin ABG 0.2 %THb (0-1.5); Oxygen Content ABG 16.3 %vol (16.0-22.0); Oxygen Saturation ABG 96.6 % (95.0-100.0); Oxyhemoglobin 96.7 % THb (90.0-100.0); PO2 ABG 104.2 mmHg (80.0-100.0); PO2 FiO2 Ratio Arterial Blood 2.61 %; Reduced Hemoglobin 2.3 %THb (0-5.0); Total Hemoglobin 11.9 g/dL (12.0-18.0)
[2024-07-16 14:50] LABS: Alanine Aminotransferase 30 U/L (6-35); Albumin Level 4.3 g/dL (3.5-5.1); Alkaline Phosphatase 87 U/L (38-126); Aspartate Amino Transferase 40 U/L (14-36); Bilirubin,Total 0.7 mg/dL (0.2-1.3); Estimated CRCL calculation 50 ml/min; Estimated Glomerular Filt Rate > 60; Glucose 118 mg/dL (65-110)
[2024-07-16 14:54] LABS: pH ABG 7.296 (7.350-7.450)
[2024-07-16 14:55] LABS: PCO2 ABG 115.1 mmHg (35.0-45.0)
[2024-07-16 14:56] LABS: Device NASAL CANNULA; Site Drawn LEFT BRACHIAL
--- NOTE | 2024-07-16 16:09 | ED.GENADULT ---
HPI - General Adult General Chief complaint: Shortness of Breath/Dyspnea Stated complaint: sob Time Seen by Provider: 07/16/24 13:45 History of Present Illness HPI narrative: Patient is a 78-year-old female who presents ER with shortness of breath. Ongoing for 2 weeks. Had an outpatient x-ray by her PCP last week that showed bilateral pneumonia. She was started on azithromycin and finished the medication 3 days ago. For last 5 days she has had increased confusion. She has not been wearing her CPAP at home. When she walks her O2 saturation apparently drops into the 60s. She reports no pain but does endorse cough and dyspnea. She is orient x3 but mildly confused. Related Data Home Medications Medication Instructions Recorded Confirmed amlodipine 2.5 mg tablet (Norvasc) 2.5 mg PO DAILY 01/05/20 07/16/24 carvedilol 25 mg tablet 25 mg PO QAM AND QPM 01/05/20 07/16/24 levothyroxine 125 mcg tablet 125 mcg PO DAILY 01/05/20 07/16/24 lisinopril 40 mg tablet 40 mg PO 1600 01/05/20 07/16/24 simvastatin 20 mg tablet 20 mg PO 1600 01/05/20 07/16/24 furosemide 40 mg tablet 40 mg PO QAM AND QPM 07/05/20 07/16/24 aspirin 81 mg tablet,delayed 81 mg PO 1600 07/16/24 07/16/24 release cholecalciferol (vitamin D3) 25 25 mcg PO 1600 07/16/24 07/16/24 mcg (1,000 unit) capsule (Vitamin D3) vitamins A,C,T-xefr-xaweqr 4,296 1 cap PO QAM AND QPM 07/16/24 07/16/24 mcg-226 mg-90 mg capsule (PreserVision AREDS) Allergies Allergy/AdvReac Type Severity Reaction Status Date / Time No Known Allergies Allergy Verified 07/16/24 14:08 Review of Systems Review of Systems: All systems reviewed & are unremarkable except as noted in HPI and below Constitutional: Constitutional: Reports no additional constitutional complaints ENT: Reports system reviewed and no additional complaints, except as documented Cardiovascular: Cardiovascular: Reports no additional cardiovascular complaints Respiratory: Respiratory: Reports no additional respiratory complaints Gastrointestinal: Gastrointestinal: Reports no additional gastrointestinal complaints Musculoskeletal: Musculoskeletal: Reports no additional musculoskeletal complaints [facility] Past Medical History Medical History Asthma Chronic obstructive pulmonary disease Chronic sinusitis Depression Exercise hypoxemia Hyperlipidemia Hypertension RAFAEL (obstructive sleep apnea) Sleep apnea Surgical History Surgical History History of hysterectomy History of nasal polypectomy Hx of tonsillectomy Family History Family History Sibling Patient's brother is in good health Family history of chronic obstructive pulmonary disease Hypertension Father Acute myocardial infarction, Onset Age: 52 Hypertension Heart disease Mother Family history of respiratory disorder, Onset Age: 80 Family history of chronic obstructive pulmonary disease, Onset Age: 80 Family history of congestive heart failure, Onset Age: 80 Cerebrovascular accident Asthma Social History Social History Smoking packs per day: 1 Smoking cigarettes per day: 20.0 Years smoked: 40 Smoking pack-years: 40.00 Smoking status: Former smoker Tobacco type: cigarettes Smoking end date: 11/25/07 Alcohol intake: never Substance use: never Substance use type: does not use Do You Feel Safe in your Home?: Yes Lack of Transportation: No Lack of Food: Never True Current Housing: I Have Housing Concerned About Future Housing: No Difficulty Paying Gas/Electric Bills: No Difficulty Paying for Meds: No Currently Unemployed: No Education: Don't Know Difficulty w/ Childcare or Family Care: No Living arrangements: alone Spiritual care concern
[2024-07-16] MEDS: FUROSEMIDE INJ 40 MG/4 ML VIAL 20 MG IV PUSH (16:28)
--- NOTE | 2024-07-16 17:37 | ADMGEN ---
This patient, Jaylene Funes, was admitted to IMU Room 205-02. Patient/family oriented to hospital policies and general routines including ID bracelet, bed and alarms, visiting hours, pain management, procedures, bathroom and other care routines, personal items, smoking policy, room service/diet, and visiting hours. Information on how to activate the Rapid Response Team has been discussed. Patient/Family are encouraged to report perceived risks to care and to ask questions if they do not understand what they are told or what they should do.
--- NOTE | 2024-07-16 19:32 | PM.IMHP ---
H&P: HPI History of Present Illness Date/Time: 07/16/24 19:32 Chief Complaint: Shortness of Breath Narrative: 78 y/o F presents here with shortness of breath with PMH of Asthma, COPD, depression, hyperlipidemia, hypertension, RAFAEL. The patient presents here for further evaluation of shortness of breath. Patient Reports shortness of breath has been ongoing for the last 2 weeks. Patient was initially seen by her PCP and had outpatient CXR done which showed bibasilar pneumonia. Patient started on azithromycin and has since completed course approximately 3 days ago. However family reports that she has become increasingly confused over the last 5+ days and has been noncompliant with her CPAP at home since Saturday. Patient wears 4-5L NC at baseline. They have been monitoring her O2 saturations which have dropped into the 60s when she ambulates, even small distances, over the last week. No associated cough, fever, chills, body aches, chest pain, or palpitations. Initial VS at presentation: 97.8? F, HR 63, RR 23, 137/64, and 92% on 5L NC. ED workup showed: WBC 10.9, hemoglobin 11.2, pH 7.296 and pCO2 115.1 on ABG , creatinine 0.9 and GFR >60, initial troponin negative, BNP 1380. CXR showed mild pulmonary edema and cardiomegaly. Initial EKG showed sinus rhythm, rate 62, left axis deviation, incomplete RBBB, possible anterior WI of indeterminate age. Review of Systems Review of Systems: All systems reviewed & are unremarkable except as noted in HPI and below PMFSH Past Medical History Medical History Asthma Chronic obstructive pulmonary disease Chronic sinusitis Depression Exercise hypoxemia Former smoker Hyperlipidemia Hypertension RAFAEL (obstructive sleep apnea) Sleep apnea Surgical History Surgical History History of hysterectomy History of nasal polypectomy Hx of tonsillectomy Family History Family History Sibling Patient's brother is in good health Family history of chronic obstructive pulmonary disease Hypertension Father Acute myocardial infarction, Onset Age: 52 Hypertension Heart disease Mother Family history of respiratory disorder, Onset Age: 80 Family history of chronic obstructive pulmonary disease, Onset Age: 80 Family history of congestive heart failure, Onset Age: 80 Cerebrovascular accident Asthma Social History Social History Smoking packs per day: 1 Smoking cigarettes per day: 20.0 Years smoked: 40 Smoking pack-years: 40.00 Smoking status: Former smoker Tobacco type: cigarettes Smoking end date: 11/25/07 Alcohol intake: never Substance use: never Substance use type: does not use Do You Feel Safe in your Home?: Yes Lack of Transportation: No Lack of Food: Never True Current Housing: I Have Housing Concerned About Future Housing: No Difficulty Paying Gas/Electric Bills: No Difficulty Paying for Meds: No Currently Unemployed: No Education: Don't Know Difficulty w/ Childcare or Family Care: No Living arrangements: alone Spiritual care concerns: No Meds Home Medications and Allergies Home Medications Medication Instructions Recorded Confirmed Type amlodipine 2.5 mg tablet (Norvasc) 2.5 mg PO DAILY 01/05/20 07/16/24 History carvedilol 25 mg tablet 25 mg PO QAM AND QPM 01/05/20 07/16/24 History levothyroxine 125 mcg tablet 125 mcg PO DAILY 01/05/20 07/16/24 History lisinopril 40 mg tablet 40 mg PO 1600 01/05/20 07/16/24 History simvastatin 20 mg tablet 20 mg PO 1600 01/05/20 07/16/24 History furosemide 40 mg tablet 40 mg PO QAM AND QPM 07/05/20 07/16/24 History Trelegy Ellipta 100 mcg-62.5 1 inh inhalation DAILY 90 days 09/25/23 07/16/24 Rx mcg-25 mcg powder for inhalation #180 ea
[2024-07-16 20:19] LABS: Alveolar/Arterial O2 Gradient 90.1 mmHg; Base Excess ABG 23.3 mEq/l (+/-2.0); Fractional Inspired Oxygen 35 %; HCO3 ABG 52.5 mEq/l (22.0-26.0); Oxygen Content ABG 15.3 %vol (16.0-22.0); Oxygen Saturation ABG 90.2 % (95.0-100.0); Oxyhemoglobin 91.6 % THb (90.0-100.0); PO2 ABG 61.5 mmHg (80.0-100.0); PO2 FiO2 Ratio Arterial Blood 1.76 %; Total Hemoglobin 11.9 g/dL (12.0-18.0); pH ABG 7.412 (7.350-7.450)
[2024-07-16 20:27] LABS: Device NON-INVASIVE VENT; PCO2 ABG 84.3 mmHg (35.0-45.0); Site Drawn RIGHT BRACHIAL
[2024-07-16 20:28] LABS: Non-Invasive Expiratory Pressure 8 CMH2O; Non-Invasive Inspiratory Pressure 16 CMH2O; Non-Invasive Vent Rate 25 /MIN
[2024-07-16 20:54] LABS: Troponin I < 0.012 ng/mL (0.000-0.034)
[2024-07-16] MEDS: carvediloL 25 MG TABLET PO (21:10)
[2024-07-16] MEDS: OPTI-GEN TAB 1 TABLET PO (21:10)
[2024-07-16] MEDS: CHOLECALCIFEROL 1,000 UNITS TABLET 1000 UNITS PO (21:10)
[2024-07-16] MEDS: SIMVASTATIN 20 MG TABLET PO (21:10)
[2024-07-16] MEDS: ASPIRIN 81 MG ENTERIC TABLET PO (21:10)
[2024-07-16] MEDS: lisinopriL 20 MG TABLET 40 MG PO (21:10)
[2024-07-17] VITALS (30 sets, daily range): BP systolic 106–172; BP diastolic 49–86; PULSE 56–85; RESP 16–28; TEMP 35.8–37.2; O2SAT 92–100
--- NOTE | 2024-07-17 | ECHO_ITS ---
Patient Info Name: Jaylene Funes Age: 78 years : 1945 Gender: Female Ht: 61 in Wt: 240 lbs BSA: 2.23 m2 HR: 85 bpm BP: 158 / 63 mmHg Heart Rhythm: Sinus Rhythm Technical Quality: Fair Exam Date: 07/17/2024 11:04 AM Exam Location: Echo Lab Patient Status: Inpatient Admit Date: 07/17/2024 Staff Ordering Physician: Carlota Estevez APRN Gasfitter: Yahir Gracia RDCS Attending Provider: Mary Vazquez PA-C Referring Physician: Zenaida CALDERON; Exam Type: CA echo dop color flow w con Study Info Indications - SOB, PUL edema on cxR Complete two-dimensional, color flow and Doppler transthoracic echocardiogram is performed with contrast to opacify the left ventricle and to improve the deliniation of the left ventricle endocardial borders. Summary 1. Definity contrast administered improved wall motion interpretation. 2. Left ventricular chamber dimension is normal. 3. Left ventricular systolic function is normal, estimated at 60-65%. 4. The left ventricular diastolic function is abnormal. 5. E/e' 18 is elevated. 6. Left atrial chamber dimension is mildly enlarged. 7. The aortic valve is not well visualized. Cannot determine number of aortic valve leaflets. 8. There is mild to moderate aortic valve regurgitation. 9. There is mild mitral valve regurgitation. 10. There is mild tricuspid valve regurgitation. 11. Mild pulmonary hypertension, estimated pulmonary arterial systolic pressure is 47 mmHg. 12. There is trace pulmonic regurgitation. Left Ventricle E/e' 18 is elevated. Definity contrast administered improved wall motion interpretation. Left ventricular chamber dimension is normal. Left ventricular systolic function is normal, estimated at 60-65%. The left ventricular diastolic function is abnormal. Right Ventricle Right ventricular systolic function is normal and with normal TAPSE 1.8 cm. Right ventricular chamber dimension is normal. Left Atria Left atrial chamber dimension is mildly enlarged. Right Atria Right atrial chamber dimension is normal. Aortic Valve The aortic valve is not well visualized. Cannot determine number of aortic valve leaflets. There is no aortic valve stenosis based on valve area and gradients. There is mild to moderate aortic valve regurgitation. Pulmonic Valve There is trace pulmonic regurgitation. Mitral Valve There is no mitral valve stenosis. There is mild mitral valve regurgitation. Tricuspid Valve There is mild tricuspid valve regurgitation. Mild pulmonary hypertension, estimated pulmonary arterial systolic pressure is 47 mmHg. Pericardium/Pleural There is no pericardial effusion. Inferior Vena Cava Normal inferior vena cava with >50% collapse upon inspiration consistent with normal right atrial pressure, 5 mmHg. Aorta The aortic root size at the sinus of Valsalva is normal. Left Ventricular Outflow Tract Name Value Normal LVOT 2D LVOT Diameter 1.83 cm LVOT Doppler LVOT Peak Gradient 5 mmHg LVOT Mean Gradient 3 mmHg LVOT VTI 28.74 cm LVOT VTI/AV VTI Ratio 1.02 LVOT Stroke Volume 75.61 ml
[2024-07-17 05:25] LABS: Basophils Absolute Auto 0.1 K/mm3 (0.0-0.1); Basophils Percent Auto 0.6 % (0.2-1.2); Eosinophils Absolute Auto 0.8 K/mm3 (0-0.3); Eosinophils Percent Auto 8.1 % (0-4.4); Hematocrit 38.6 % (37.0-47.0); Hemoglobin 11.3 g/dL (12.0-15.0); Immature Granulocyte Absolute 0.08 K/mm3 (0.00-0.031); Immature Granulocyte Percent A 0.9 % (0-0.5); Lymphocytes Absolute Auto 1.31 K/mm3 (0.9-3.2); Lymphocytes Percent Auto 14.1 % (18.3-44.2); Mean Corpuscular HGB Conc 29.3 g/dl (32-36); Mean Corpuscular Hemoglobin 28.3 pg (26-34); Mean Corpuscular Volume 96.7 fl (80-100); Mean Platelet Volume 9.9 fl (7.4-10.4); Monocytes Absolute Auto 0.9 K/mm3 (0.1-0.6); Monocytes Percent Auto 10.1 % (2.6-8.5); Neutrophils Absolute Auto 6.1 K/mm3 (1.3-6.7); Neutrophils Percent Auto 66.2 % (45.5-73.1); Platelet Count Result 225 k/mm3 (150-375); Red Blood Count 3.99 M/mm3 (4.2-5.4); Red Cell Distribution Width 14.1 % (11.5-14.5); White Blood Count 9.3 K/mm3 (4.5-10.0)
[2024-07-17 05:40] LABS: Alanine Aminotransferase 26 U/L (6-35); Albumin Level 4.1 g/dL (3.5-5.1); Alkaline Phosphatase 85 U/L (38-126); Aspartate Amino Transferase 37 U/L (14-36); Bilirubin,Total 0.8 mg/dL (0.2-1.3); Blood Urea Nitrogen 22 mg/dL (7-17); CRP 0.5 mg/dL (<1.0); Calcium 9.4 mg/dL (8.4-10.2); Carbon Dioxide > 40 mmol/L (22-30); Chloride 84 mmol/L (98-107); Estimated CRCL calculation 47 ml/min; Estimated Glomerular Filt Rate 54; Glucose 117 mg/dL (65-110); Potassium 5.2 mmol/L (3.4-5.0); Sodium 143 mmol/L (137-145)
[2024-07-17 05:51] LABS: Anisocytosis 1+; Hypochromasia 1+; Platelet Estimate Adequate (Adequate); Schistocytes None Seen
[2024-07-17 06:19] LABS: Alveolar/Arterial O2 Gradient 103.7 mmHg; Base Excess ABG 18.8 mEq/l (+/-2.0); Fractional Inspired Oxygen 40 %; Oxygen Content ABG 15.9 %vol (16.0-22.0); Oxygen Saturation ABG 95.4 % (95.0-100.0); Oxyhemoglobin 94.8 % THb (90.0-100.0); Total Hemoglobin 11.9 g/dL (12.0-18.0); pH ABG 7.371 (7.350-7.450)
[2024-07-17 06:30] LABS: PCO2 ABG 84.8 mmHg (35.0-45.0); Site Drawn RIGHT BRACHIAL
[2024-07-17 06:31] LABS: Device NON-INVASIVE VENT; Non-Invasive Expiratory Pressure 8 CMH2O; Non-Invasive Inspiratory Pressure 16 CMH2O; Non-Invasive Vent Rate 25 /MIN
[2024-07-17] MEDS: LEVOTHYROXINE SODIUM 125 MCG TABLET PO (07:03)
[2024-07-17] MEDS: carvediloL 25 MG TABLET PO ×2 (08:44→21:07)
[2024-07-17] MEDS: FLUoxetine HCL 20 MG CAPSULE PO (08:44)
[2024-07-17] MEDS: amLODIPine BESYLATE 2.5 MG TABLET PO (08:44)
[2024-07-17] MEDS: OPTI-GEN TAB 1 TABLET PO ×2 (08:44→21:08)
[2024-07-17] MEDS: predniSONE 20 MG TABLET 40 MG PO (08:44)
[2024-07-17] MEDS: FUROSEMIDE INJ 40 MG/4 ML VIAL IV PUSH ×2 (08:44→18:28)
[2024-07-17] MEDS: IPRATROPIUM 0.5 MG/ALBUTEROL SULFATE 2.5 MG AMPUL.NEB 3 ML INHALATION ×3 (09:36→20:09)
[2024-07-17] MEDS: FLUTICASONE/UMECLIDIN/VILANTER 100-62.5-25 MCG ELLIPTA 1 PUFF INHALATION (09:36)
--- NOTE | 2024-07-17 09:48 | PM.IMPN ---
Progress Note: A&P Assessment and Plan (1) Acute hypercapnic respiratory failure: Code(s): J96.02 - Acute respiratory failure with hypercapnia Status: Acute Assessment and Plan: Suspect COPD exacerbation with CO2 narcosis secondary to noncompliance with Bipap - CXR: 1. Mild pulmonary edema. 2. Cardiomegaly. - CTA chest: 1. No pulmonary embolism. 2. No acute cardiopulmonary pathology. 3. Secretions and less likely soft tissue density in the area of the nikolas. 4. Prominent main pulmonary artery suggestive of pulmonary hypertension. - Troponin: negative - Initial ABG: pH 7.296, pCO2 115.1, pO2 104.2, HCO3 54.9, O2 sat 96.6% on 5L NC on admission. - ABG 07/17: pH 7.371, pCO2 84.8, pO2 84, HCO3 48, O2 saturation 95.4 - BNP elevated, echo with LVEF 60-65% and mild pulmonary hypertension 47 mmHg - Covid/flu/RSV negative - Monitor vital signs, I&Os, neuro status and patient is a fall risk - Monitor serum electrolytes, cultures and CBC - Chronically on 4-5 L NC baseline, Monitor Oxygen saturation, Oxygen via NC; wean oxygen as tolerated, keep SpO2 greater than 88% - pulmonology consulted placing patient on current BiPAP with no backup rate provides overnight to evaluate if adequate ventilation overnight oximetry with ABG prior to Bipap removal d dimer slightly elevated, CTA lower extremity dopplers ordered Continue prednisone for COPD exacerbation, resumed home Trilogy 100 (2) Pulmonary edema: Qualifiers: Chronicity: acute Qualified Code(s): J81.0 - Acute pulmonary edema Code(s): J81.1 - Chronic pulmonary edema Status: Acute Assessment and Plan: - CXR: 1. Mild pulmonary edema. 2. Cardiomegaly. - BNP 1380 - Echo: LVEF 60-65% and mild pulmonary hypertension 47 mmHg - currently on: Lasix 40 mg b.i.d., will continue as 40 b.i.d. of Lasix IVP while inpatient - daily weights - monitor I&Os - trend renal function (3) Hypertension: Qualifiers: Hypertension type: primary hypertension Qualified Code(s): I10 - Essential (primary) hypertension Code(s): I10 - Essential (primary) hypertension Status: Chronic Assessment and Plan: - chronic - continue home medications: amlodipine 2.5 mg daily, carvedilol 25 mg b.i.d., lisinopril 40 mg daily - monitor (4) RAFAEL (obstructive sleep apnea): Code(s): G47.33 - Obstructive sleep apnea (adult) (pediatric) Status: Chronic Assessment and Plan: - continue home BIPAP Plan Diet: heart healthy GI Prophylaxis: not currently indicated DVT Prophylaxis: SCDs Lines: peripheral Code Status: DNR Time Spent With Patient Time with patient: 25 - 35 minutes Subjective Date/time seen: 07/17/24 09:48 Interval history: 78 y/o F presents here with shortness of breath and altered mental status with PMH of asthma, COPD, depression, hyperlipidemia, hypertension, RAFAEL. Patient is pleasant lying comfortably in bed. She returned to her baseline AOx4. Patient denies chest pain, shortness of breath, palpitations, nausea/vomiting. Spoke with pulmonology about patients care plan. Will continue to treat for COPD exacberation with prednisone. Due to patients elevated BNP will obtain a CTA chest and dopplers. Will start patient on her home bipap setting overnight with oximetry and an ABG in the am. Review of Systems Review of Systems: All systems reviewed & are unremarkable except as noted in HPI and below Exam Narrative: AF HR 65 RR 18 SpO2 93 3L NC BP 151/86 General: female in no acute respiratory distress who is nontoxic appearing, lying semi recumbent in bed. HEENT: Normocephalic. Atraumatic. Extraocular movement intact. No facial asymmetry. Chest: Lungs are crackles to auscultation bilaterally. No wheezes. CV: Heart was regular rate and rhythm. S1-S2. No murmurs, gallops, or rubs. Abd: Abdomen was soft. Nontender. Nondistended. Positive bowel sounds. No organomegaly or mass
[2024-07-17] MEDS: PERFLUTREN LIPID MICROSPHERES 1.5 ML VIAL DILUTED TO 10 ML TOTAL VOLUME IV PUSH (11:30)
--- NOTE | 2024-07-17 12:18 | PM.CNPUL ---
Assessment and Plan Assessment and plan (1) Chronic obstructive pulmonary disease: Qualifiers: COPD type: unspecified COPD Qualified Code(s): J44.9 - Chronic obstructive pulmonary disease, unspecified Code(s): J44.9 - Chronic obstructive pulmonary disease, unspecified Status: Acute Assessment and Plan: Gold grade 2 group B COPD Patient with 57 pack year tobacco use quit at age 58, PFTs report on 12/19/2017 with moderate-severe obstructive ventilatory defect with acute BD response, RV TLC ratio consistent with air trapping. Room air arterial blood gas 7.46/44/57 compared with 05/10/2016 there is no significant changed in the time flows. DLCO has declined on present study. CT scan of chest on 01/03/2024 with mild to moderate apical predominant centrilobular emphysema. Patient with chronic hypoxemic respiratory failure requiring 4 L at rest, 4 to 4.5 L with activity and 4 to 4.5 L with her BiPAP 21/17 at night ( BiPAP use was for obstructive sleep apnea). Patient is maintained on trilogy 100, albuterol inhaler and albuterol nebulizer p.r.n.. Patient presented to the emergency department on 07/16 with 2 weeks worsening oxygenation, fatigue, sweating, chest x-ray with bilateral infiltrates treated with azithromycin for pneumonia as an outpatient. She cannot wear her BiPAP for 2-3 days prior to presentation. She continued to progress and presented with fatigue, hypoxemia, confusion with an Serum bicarbonate greater than 40 and ABG of 7.30/115/104. She was admitted to the hospital and treated for COPD exacerbation and fluid overload with IV Lasix. The patient has COPD with chronic hypercarbic respiratory failure from her COPD. She would benefit from noninvasive ventilation to prevent further hospitalizations and deterioration. Will attempt to determine if her patient's current BiPAP 21/17 with no backup rate provides adequate ventilation. 07/17/24: Currently the patient tells me her shortness of breath, cough and phlegm production are all back to her baseline. She denies any chest pain or wheezing. The son is in the room and states that she is looking 100% better and is no longer confused. Overall she did say she had some increased edema in her lower extremities but no change in her 2 pillow orthopnea or nocturia x1 recently. Family did state that over the last 2 nights she was unable to tolerate her home BiPAP settings. The son states that HP came to the house today and checked her home machine and said that everything was working well. Currently the patient is awake and communicative in no respiratory distress on 4 L nasal cannula with saturations 98%. Plan: Agree with treatment for COPD exacerbation. currently she is feeling much improved near her baseline with no wheezes. Will continue prednisone 40 mg p.o. q.day (day 1), Will place her back on her home trilogy 100. Will change her standing DuoNebs to p.r.n.. Patient had a positive D-dimer in 0.[address] angiogram of the chest and lower extremity Dopplers. Will place the patient on her home noninvasive ventilator with BiPAP and perform overnight oximetry an ABG prior to removal. Echocardiogram has been performed with LVEF 60 65%, abnormal diastolic function, mildly enlarged left atrium, [id number] aortic valve regurgitation, mild mitral valve regurgitation, mild tricuspid valve regurgitation with PASP of 47. Normal right ventricular size and function. Normal right atrial size. She has an elevated BNP, pedal edema and agree with as aggressive diuresis as her cardiac and renal systems can not tolerate. Currently she is on Lasix 40 IV b.i.d.. We will follow ins and outs and weights. The patient tells me that she wore the hospital BiPAP machine last night rate of 25, pressures 16/8, inspiratory time 0.8, rise of 2 in 40% and that the machine was uncomfortable as it pushed more air than her home machine. I placed the
--- NOTE | 2024-07-17 12:20 | IVDEFINITY ---
Prior to administration of IV Definity the patient was educated on the risks and benefits of the imaging enhancing agent including potential adverse side effects. The patient verbalized understanding. Allergies were verified. No exclusion criteria were identified and at least one of the following inclusion criteria were met: 1) physician request, 2) patient technically difficult to image (per the [place] [employer] guidelines of two or more segments not discernable within the apical view), or 3) questionable left ventricular function. ?
[2024-07-17 14:23] LABS: Add Urine Microscopic? YES; Appearance Urine Clear (Clear); Bacteria Urine 4+ /hpf; Bilirubin Urine Negative (Negative); Blood Urine Negative (Negative); Color Urine Yellow (Yellow); Glucose Urine UA Negative (Negative); Ketones Urine Negative (Negative); Leukocyte Esterase Ur Trace LEU/UL (Negative); Nitrate Urine Negative (Negative); Non Pathogenic Casts 0-2; Protein Urine Negative (Negative); RBC Urine 0-2 /hpf (0-2); Specific Grav Ur 1.007 (1.001-1.035); Squamous Epithelial Cell Urine None Seen /hpf (Few); Urobilinogen Urine 0.2 mg/dL (<2.0); WBC Urine 0-5 /hpf (0-3)
[2024-07-17 14:42] LABS: Influenza A QL RT-PCR Negative (Negative); Influenza B QL RT-PCR Negative (Negative); RSV RNA, RT-PCR Negative (Negative); SARS-CoV-2 RNA PCR Negative (Negative)
[2024-07-17] MEDS: SIMVASTATIN 20 MG TABLET PO (18:28)
[2024-07-17] MEDS: lisinopriL 20 MG TABLET 40 MG PO (18:28)
[2024-07-17] MEDS: ASPIRIN 81 MG ENTERIC TABLET PO (18:28)
[2024-07-17] MEDS: CHOLECALCIFEROL 1,000 UNITS TABLET 1000 UNITS PO (18:28)
[2024-07-17] MEDS: WATER FOR IRRIGATION, STERILE 1,000 ML BOTTLE 1000 ML (22:00)
--- NOTE | 2024-07-17 22:49 | PCRCNOTE ---
Attempt to run apnea link monitor on patient with home cpap machine with a 4L bleed-in. Patient oxygen saturations would not go above 88%. I begin with a 4L bleed-in and slow increase patient to 15l. Patients sats started off at 81% and would not go over 88%. Patient is on continuous pulse ox so I change fingers and used hospital pulse ox machine to correlate numbers and both was the same at 88%. Patient nurse was notified. Placed patient on 6L NC and home cpap on standby.
[2024-07-18] VITALS (28 sets, daily range): BP systolic 102–171; BP diastolic 50–83; PULSE 54–97; RESP 14–24; TEMP 36.5–36.8; O2SAT 90–100
[2024-07-18] MEDS: IPRATROPIUM 0.5 MG/ALBUTEROL SULFATE 2.5 MG AMPUL.NEB 3 ML INHALATION ×4 (03:20→20:14)
--- NOTE | 2024-07-18 04:45 | PCRCNOTE ---
Morning ABG not obtain due to patient not wearing PAP machine.
[2024-07-18] MEDS: LEVOTHYROXINE SODIUM 125 MCG TABLET PO (06:11)
[2024-07-18] MEDS: FLUTICASONE/UMECLIDIN/VILANTER 100-62.5-25 MCG ELLIPTA 1 PUFF INHALATION (08:05)
--- NOTE | 2024-07-18 09:38 | PM.IMPN ---
Progress Note: A&P Assessment and Plan (1) Acute hypercapnic respiratory failure: Code(s): J96.02 - Acute respiratory failure with hypercapnia Status: Acute Assessment and Plan: Suspect COPD exacerbation with CO2 narcosis secondary to noncompliance with Bipap - CXR: 1. Mild pulmonary edema. 2. Cardiomegaly. - CTA chest: 1. No pulmonary embolism. 2. No acute cardiopulmonary pathology. 3. Secretions and less likely soft tissue density in the area of the nikolas. 4. Prominent main pulmonary artery suggestive of pulmonary hypertension. - Troponin: negative - Initial ABG: pH 7.296, pCO2 115.1, pO2 104.2, HCO3 54.9, O2 sat 96.6% on 5L NC on admission. - ABG 07/17: pH 7.371, pCO2 84.8, pO2 84, HCO3 48, O2 saturation 95.4 - BNP elevated, echo with LVEF 60-65% and mild pulmonary hypertension 47 mmHg - Covid/flu/RSV negative - Monitor vital signs, I&Os, neuro status and patient is a fall risk - Monitor serum electrolytes, cultures and CBC - Chronically on 4-5 L NC baseline, Monitor Oxygen saturation, Oxygen via NC; wean oxygen as tolerated, keep SpO2 greater than 88% - pulmonology consulted placing patient on current BiPAP with no backup rate provides overnight to evaluate if adequate ventilation overnight oximetry with ABG prior to Bipap removal d dimer slightly elevated, CTA: No pulmonary embolism. No acute cardiopulmonary pathology.Secretions and less likely soft tissue density in the area of the nikolas. Prominent main pulmonary artery suggestive of pulmonary hypertension. lower extremity dopplers: no DVT Continue prednisone for COPD exacerbation, resumed home Trilogy 100 07/18: Overnight patients home bipap failed. She was not able to remain on the bipap and was transitioned to high flow NC. Discussed her with pulmonolgy Dr. Santamaria and will start her on AVAPs tonight with oximetry and obtain an ABG in the am. (2) Pulmonary edema: Qualifiers: Chronicity: acute Qualified Code(s): J81.0 - Acute pulmonary edema Code(s): J81.1 - Chronic pulmonary edema Status: Acute Assessment and Plan: - CXR: 1. Mild pulmonary edema. 2. Cardiomegaly. - BNP 1380 - Echo: LVEF 60-65% and mild pulmonary hypertension 47 mmHg - currently on: Lasix 40 mg b.i.d., will continue as 40 b.i.d. of Lasix IVP while inpatient - daily weights - monitor I&Os - trend renal function (3) Hypertension: Qualifiers: Hypertension type: primary hypertension Qualified Code(s): I10 - Essential (primary) hypertension Code(s): I10 - Essential (primary) hypertension Status: Chronic Assessment and Plan: - chronic - continue home medications: amlodipine 2.5 mg daily, carvedilol 25 mg b.i.d., lisinopril 40 mg daily - monitor (4) RAFAEL (obstructive sleep apnea): Code(s): G47.33 - Obstructive sleep apnea (adult) (pediatric) Status: Chronic Assessment and Plan: - AVAPs overnight Plan Diet: heart healthy GI Prophylaxis: not currently indicated DVT Prophylaxis: SCDs Lines: peripheral Code Status: DNR Time Spent With Patient Time with patient: 25 - 35 minutes Subjective Date/time seen: 07/18/24 09:38 Interval history: 78 y/o F presents here with shortness of breath and altered mental status with PMH of asthma, COPD, depression, hyperlipidemia, hypertension, RAFAEL. Patient brought her home Bipap machine to use overnight with the plan of obtaining an overnight oximetry and an ABG in the am with the bipap still on. However the patients bipap machine did not work and she was placed on 9L high flow NC overnight instead. Discussed patient with Dr. Santamaria today. Will place patient on AVAPs and oximetry overnight with plan to obtain an ABG with AVAPs in place in the morning. Discussed this patient and her son, BUD and they state understanding. At that time patient denies chest pain, shortness of breath, nausea/vomiting and changes in bowel/bladder. Encourag
[2024-07-18] MEDS: predniSONE 20 MG TABLET 40 MG PO (09:45)
[2024-07-18] MEDS: amLODIPine BESYLATE 2.5 MG TABLET PO (10:14)
[2024-07-18] MEDS: FLUoxetine HCL 20 MG CAPSULE PO (10:16)
[2024-07-18] MEDS: ENOXAPARIN 40 MG/0.4 ML SYRINGE SUB-Q (10:16)
[2024-07-18] MEDS: carvediloL 25 MG TABLET PO ×2 (10:16→20:29)
[2024-07-18] MEDS: FUROSEMIDE INJ 40 MG/4 ML VIAL IV PUSH ×2 (10:17→18:16)
[2024-07-18] MEDS: OPTI-GEN TAB 1 TABLET PO ×2 (10:17→20:29)
[2024-07-18 12:09] LABS: Basophils Absolute Auto 0.1 K/mm3 (0.0-0.1); Basophils Percent Auto 0.5 % (0.2-1.2); Eosinophils Absolute Auto 0.3 K/mm3 (0-0.3); Eosinophils Percent Auto 3.1 % (0-4.4); Hematocrit 39.4 % (37.0-47.0); Hemoglobin 11.8 g/dL (12.0-15.0); Immature Granulocyte Absolute 0.06 K/mm3 (0.00-0.031); Immature Granulocyte Percent A 0.6 % (0-0.5); Lymphocytes Absolute Auto 0.76 K/mm3 (0.9-3.2); Lymphocytes Percent Auto 7.8 % (18.3-44.2); Mean Corpuscular HGB Conc 29.9 g/dl (32-36); Mean Corpuscular Hemoglobin 28.4 pg (26-34); Mean Corpuscular Volume 94.9 fl (80-100); Mean Platelet Volume 9.6 fl (7.4-10.4); Monocytes Absolute Auto 0.6 K/mm3 (0.1-0.6); Monocytes Percent Auto 6.1 % (2.6-8.5); Neutrophils Percent Auto 81.9 % (45.5-73.1); Platelet Count Result 230 k/mm3 (150-375); Red Blood Count 4.15 M/mm3 (4.2-5.4); Red Cell Distribution Width 14.4 % (11.5-14.5); White Blood Count 9.7 K/mm3 (4.5-10.0)
[2024-07-18 12:22] LABS: Alanine Aminotransferase 26 U/L (6-35); Albumin Level 4.3 g/dL (3.5-5.1); Alkaline Phosphatase 84 U/L (38-126); Aspartate Amino Transferase 36 U/L (14-36); Bilirubin,Total 0.7 mg/dL (0.2-1.3); Blood Urea Nitrogen 22 mg/dL (7-17); Calcium 9.1 mg/dL (8.4-10.2); Carbon Dioxide > 40 mmol/L (22-30); Chloride 83 mmol/L (98-107); Estimated CRCL calculation 46 ml/min; Estimated Glomerular Filt Rate 54; Glucose 143 mg/dL (65-110); Potassium 3.7 mmol/L (3.4-5.0); Sodium 139 mmol/L (137-145)
--- NOTE | 2024-07-18 15:40 | PCRCNOTE ---
Placed pt on AVAPS settings for trial per MD. Pt stated AVAPS settings were comfortable and tolerable for tonight. Placed NIV on standby.
[2024-07-18] MEDS: SIMVASTATIN 20 MG TABLET PO (18:17)
[2024-07-18] MEDS: CHOLECALCIFEROL 1,000 UNITS TABLET 1000 UNITS PO (18:17)
[2024-07-18] MEDS: ASPIRIN 81 MG ENTERIC TABLET PO (18:17)
[2024-07-18] MEDS: lisinopriL 20 MG TABLET 40 MG PO (18:17)
[2024-07-19] VITALS (29 sets, daily range): BP systolic 95–136; BP diastolic 42–58; PULSE 55–81; RESP 16–24; TEMP 36–37.2; O2SAT 90–98
[2024-07-19 05:51] LABS: Alveolar/Arterial O2 Gradient 116.8 mmHg; Base Excess ABG 20.7 mEq/l (+/-2.0); Fractional Inspired Oxygen 36 %; HCO3 ABG 47.2 mEq/l (22.0-26.0); Oxygen Content ABG 13.9 %vol (16.0-22.0); Oxygen Saturation ABG 93.4 % (95.0-100.0); Oxyhemoglobin 92.9 % THb (90.0-100.0); PO2 ABG 65.2 mmHg (80.0-100.0); PO2 FiO2 Ratio Arterial Blood 1.81 %; Total Hemoglobin 10.6 g/dL (12.0-18.0); pH ABG 7.483 (7.350-7.450)
[2024-07-19 05:54] LABS: Device BIPAP; Modified Allen's Test Pass; PCO2 ABG 64.4 mmHg (35.0-45.0); Site Drawn RIGHT RADIAL
[2024-07-19 05:56] LABS: Expiratory Pressure 8 cmH2O
[2024-07-19 06:41] LABS: Basophils Absolute Auto 0.1 K/mm3 (0.0-0.1); Basophils Percent Auto 0.6 % (0.2-1.2); Eosinophils Absolute Auto 0.2 K/mm3 (0-0.3); Eosinophils Percent Auto 1.8 % (0-4.4); Hematocrit 39.3 % (37.0-47.0); Hemoglobin 11.8 g/dL (12.0-15.0); Immature Granulocyte Absolute 0.06 K/mm3 (0.00-0.031); Immature Granulocyte Percent A 0.6 % (0-0.5); Lymphocytes Absolute Auto 2.36 K/mm3 (0.9-3.2); Lymphocytes Percent Auto 21.7 % (18.3-44.2); Mean Corpuscular Hemoglobin 28.5 pg (26-34); Mean Corpuscular Volume 94.9 fl (80-100); Mean Platelet Volume 9.7 fl (7.4-10.4); Monocytes Absolute Auto 1.3 K/mm3 (0.1-0.6); Monocytes Percent Auto 12.1 % (2.6-8.5); Neutrophils Absolute Auto 6.9 K/mm3 (1.3-6.7); Neutrophils Percent Auto 63.2 % (45.5-73.1); Platelet Count Result 251 k/mm3 (150-375); Red Blood Count 4.14 M/mm3 (4.2-5.4); Red Cell Distribution Width 14.5 % (11.5-14.5); White Blood Count 10.9 K/mm3 (4.5-10.0)
[2024-07-19 06:53] LABS: Alanine Aminotransferase 24 U/L (6-35); Albumin Level 4.1 g/dL (3.5-5.1); Alkaline Phosphatase 87 U/L (38-126); Aspartate Amino Transferase 33 U/L (14-36); Bilirubin,Total 0.7 mg/dL (0.2-1.3); Blood Urea Nitrogen 28 mg/dL (7-17); Carbon Dioxide > 40 mmol/L (22-30); Chloride 82 mmol/L (98-107); Estimated CRCL calculation 42 ml/min; Estimated Glomerular Filt Rate 48; Glucose 99 mg/dL (65-110); Potassium 3.2 mmol/L (3.4-5.0); Sodium 137 mmol/L (137-145)
[2024-07-19] MEDS: LEVOTHYROXINE SODIUM 125 MCG TABLET PO (06:53)
[2024-07-19] MEDS: IPRATROPIUM 0.5 MG/ALBUTEROL SULFATE 2.5 MG AMPUL.NEB 3 ML INHALATION ×3 (07:14→21:31)
[2024-07-19] MEDS: FLUTICASONE/UMECLIDIN/VILANTER 100-62.5-25 MCG ELLIPTA 1 PUFF INHALATION (07:14)
[2024-07-19] MEDS: FLUoxetine HCL 20 MG CAPSULE PO (09:39)
[2024-07-19] MEDS: OPTI-GEN TAB 1 TABLET PO ×2 (09:39→20:30)
[2024-07-19] MEDS: amLODIPine BESYLATE 2.5 MG TABLET PO (09:41)
[2024-07-19] MEDS: predniSONE 20 MG TABLET 40 MG PO (09:41)
[2024-07-19] MEDS: carvediloL 25 MG TABLET PO ×2 (09:41→20:30)
[2024-07-19] MEDS: FUROSEMIDE INJ 40 MG/4 ML VIAL IV PUSH ×2 (09:42→17:24)
[2024-07-19] MEDS: ENOXAPARIN 40 MG/0.4 ML SYRINGE SUB-Q (09:42)
--- NOTE | 2024-07-19 11:29 | PM.IMPN ---
Progress Note: A&P Assessment and Plan (1) Acute hypercapnic respiratory failure: Code(s): J96.02 - Acute respiratory failure with hypercapnia Status: Acute Assessment and Plan: Suspect COPD exacerbation with CO2 narcosis secondary to noncompliance with Bipap - CXR: 1. Mild pulmonary edema. 2. Cardiomegaly. - CTA chest: 1. No pulmonary embolism. 2. No acute cardiopulmonary pathology. 3. Secretions and less likely soft tissue density in the area of the nikolas. 4. Prominent main pulmonary artery suggestive of pulmonary hypertension. - Troponin: negative - Initial ABG: pH 7.296, pCO2 115.1, pO2 104.2, HCO3 54.9, O2 sat 96.6% on 5L NC on admission. - ABG 07/17: pH 7.371, pCO2 84.8, pO2 84, HCO3 48, O2 saturation 95.4 - BNP elevated, echo with LVEF 60-65% and mild pulmonary hypertension 47 mmHg - Covid/flu/RSV negative - Monitor vital signs, I&Os, neuro status and patient is a fall risk - Monitor serum electrolytes, cultures and CBC - Chronically on 4-5 L NC baseline, Monitor Oxygen saturation, Oxygen via NC; wean oxygen as tolerated, keep SpO2 greater than 88% - pulmonology consulted placing patient on current BiPAP with no backup rate provides overnight to evaluate if adequate ventilation overnight oximetry with ABG prior to Bipap removal d dimer slightly elevated, CTA: No pulmonary embolism. No acute cardiopulmonary pathology.Secretions and less likely soft tissue density in the area of the nikolas. Prominent main pulmonary artery suggestive of pulmonary hypertension. lower extremity dopplers: no DVT Continue prednisone for COPD exacerbation, resumed home Trilogy 100 07/18: Overnight patients home bipap failed. She was not able to remain on the bipap and was transitioned to high flow NC. Discussed her with pulmonolgy Dr. Santamaria and will start her on AVAPs tonight with oximetry and obtain an ABG in the am. 07/19: Patient placed on AVAPs setting per pulmonology. Her ABG pH 7.483, pCO2 64.4, pO2 65.2, and HCO3 47.2 on current settings. The oximetry done overnight showed an SpO2 < 88% for extending period of time. Discussed this with Dr. Santamaria and will increase the EPAP and min inspiratory pressure tonight and reassess oximetry. The rest of the settings are seemingly adequate as the patient has developed respiratory alkosis and the CO2 has improved. Patient has been on 9L NC during the day and sating in the upper 90-100. Will wean as tolerated for a goal of 90-94. (2) Pulmonary edema: Qualifiers: Chronicity: acute Qualified Code(s): J81.0 - Acute pulmonary edema Code(s): J81.1 - Chronic pulmonary edema Status: Acute Assessment and Plan: - CXR: 1. Mild pulmonary edema. 2. Cardiomegaly. - BNP 1380 - Echo: LVEF 60-65% and mild pulmonary hypertension 47 mmHg - currently on: Lasix 40 mg b.i.d. PO - daily weights - monitor I&Os - trend renal function (3) Hypertension: Qualifiers: Hypertension type: primary hypertension Qualified Code(s): I10 - Essential (primary) hypertension Code(s): I10 - Essential (primary) hypertension Status: Chronic Assessment and Plan: - chronic - continue home medications: amlodipine 2.5 mg daily, carvedilol 25 mg b.i.d., lisinopril 40 mg daily - monitor (4) RAFAEL (obstructive sleep apnea): Code(s): G47.33 - Obstructive sleep apnea (adult) (pediatric) Status: Chronic Assessment and Plan: - AVAPs overnight as above Plan Diet: heart healthy GI Prophylaxis: not currently indicated DVT Prophylaxis: SCDs Lines: peripheral Code Status: DNR Time Spent With Patient Time with patient: 25 - 35 minutes Subjective Date/time seen: 07/19/24 11:29 Interval history: 78 y/o F presents here with shortness of breath and altered mental status with PMH of asthma, COPD, depression, hyperlipidemia, hypertension, RAFAEL. Patient is pleasant sitting up in her bed. She has no complaints at this
[2024-07-19] MEDS: POTASSIUM CHLORIDE 20 MEQ ER TABLET 40 MEQ PO (13:33)
--- NOTE | 2024-07-19 15:21 | PC.NURSE ---
Reviewed and Approve Documentation of Jere Daly [facility] Student RN
[2024-07-19] MEDS: lisinopriL 20 MG TABLET 40 MG PO (16:00)
[2024-07-19] MEDS: CHOLECALCIFEROL 1,000 UNITS TABLET 1000 UNITS PO (16:00)
[2024-07-19] MEDS: SIMVASTATIN 20 MG TABLET PO (16:00)
[2024-07-19] MEDS: ASPIRIN 81 MG ENTERIC TABLET PO (16:00)
[2024-07-20] VITALS (20 sets, daily range): BP systolic 128–137; BP diastolic 63–68; PULSE 53–84; RESP 16–27; TEMP 36.1–36.2; O2SAT 85–100
--- NOTE | 2024-07-20 | ECHO_ITS ---
Patient Info Name: Jaylene Funes Age: 78 years : 1945 Gender: Female Ht: 61 in Wt: 228 lbs BSA: 2.17 m2 HR: 75 bpm Technical Quality: Good Exam Date: 07/20/2024 11:08 AM Exam Location: Echo Lab Patient Status: Inpatient Admit Date: 07/17/2024 Staff Ordering Physician: Neto Santamaria MD Opal Polisher: Yahir Gracia RDCS Attending Provider: Mary Vazquez PA-C Referring Physician: Rosalio JOSEPH; Exam Type: CA echo limited w bubble study Study Info Indications - hypoxia, r/o shunt Limited two-dimensional transthoracic echocardiogram is performed with agitated saline. Summary 1. Limited echocardiogram to assess atrial septum. 2. Agitated saline injection with and without valsalva maneuver opacified right side cardiac chambers without shunt to left side cardiac chambers. Atrial Septum Limited echocardiogram to assess atrial septum. Agitated saline injection with and without valsalva maneuver opacified right side cardiac chambers without shunt to left side cardiac chambers. Intact interatrial septum visualized by 2D and agitated saline imaging. Report Signatures
--- NOTE | 2024-07-20 03:11 | PCRCNOTE ---
Patient did not receive 0200 updraft treatment due to being on an overnight oximetry study. Treatment will resume at 0800.
[2024-07-20 05:35] LABS: Basophils Absolute Auto 0.1 K/mm3 (0.0-0.1); Basophils Percent Auto 0.5 % (0.2-1.2); Eosinophils Absolute Auto 0.1 K/mm3 (0-0.3); Eosinophils Percent Auto 0.8 % (0-4.4); Hematocrit 37.2 % (37.0-47.0); Hemoglobin 10.9 g/dL (12.0-15.0); Immature Granulocyte Absolute 0.06 K/mm3 (0.00-0.031); Immature Granulocyte Percent A 0.5 % (0-0.5); Lymphocytes Absolute Auto 1.87 K/mm3 (0.9-3.2); Lymphocytes Percent Auto 17.1 % (18.3-44.2); Mean Corpuscular HGB Conc 29.3 g/dl (32-36); Mean Corpuscular Hemoglobin 27.8 pg (26-34); Mean Corpuscular Volume 94.9 fl (80-100); Mean Platelet Volume 10.2 fl (7.4-10.4); Monocytes Absolute Auto 1.3 K/mm3 (0.1-0.6); Monocytes Percent Auto 12.1 % (2.6-8.5); Neutrophils Absolute Auto 7.6 K/mm3 (1.3-6.7); Platelet Count Result 230 k/mm3 (150-375); Red Blood Count 3.92 M/mm3 (4.2-5.4); Red Cell Distribution Width 14.6 % (11.5-14.5); White Blood Count 10.9 K/mm3 (4.5-10.0)
[2024-07-20 06:03] LABS: Alanine Aminotransferase 23 U/L (6-35); Albumin Level 3.8 g/dL (3.5-5.1); Alkaline Phosphatase 90 U/L (38-126); Anisocytosis 1+; Aspartate Amino Transferase 32 U/L (14-36); Bilirubin,Total 0.4 mg/dL (0.2-1.3); Blood Urea Nitrogen 38 mg/dL (7-17); Calcium 9.1 mg/dL (8.4-10.2); Carbon Dioxide > 40 mmol/L (22-30); Chloride 86 mmol/L (98-107); Estimated CRCL calculation 33 ml/min; Estimated Glomerular Filt Rate 37; Glucose 87 mg/dL (65-110); Platelet Clumps Present; Platelet Estimate Adequate (Adequate); Potassium 3.8 mmol/L (3.4-5.0); Sodium 140 mmol/L (137-145)
[2024-07-20 06:04] LABS: Microcytosis 1+ (NORMAL); Schistocytes None Seen
[2024-07-20] MEDS: LEVOTHYROXINE SODIUM 125 MCG TABLET PO (06:08)
--- NOTE | 2024-07-20 07:59 | PM.IMPN ---
Progress Note: A&P Assessment and Plan (1) Acute hypercapnic respiratory failure: Code(s): J96.02 - Acute respiratory failure with hypercapnia Status: Acute Assessment and Plan: Suspect COPD exacerbation with CO2 narcosis secondary to noncompliance with Bipap - CXR: 1. Mild pulmonary edema. 2. Cardiomegaly. - CTA chest: 1. No pulmonary embolism. 2. No acute cardiopulmonary pathology. 3. Secretions and less likely soft tissue density in the area of the nikolas. 4. Prominent main pulmonary artery suggestive of pulmonary hypertension. - Troponin: negative - Initial ABG: pH 7.296, pCO2 115.1, pO2 104.2, HCO3 54.9, O2 sat 96.6% on 5L NC on admission. - ABG 07/17: pH 7.371, pCO2 84.8, pO2 84, HCO3 48, O2 saturation 95.4 - BNP elevated, echo with LVEF 60-65% and mild pulmonary hypertension 47 mmHg - Covid/flu/RSV negative - Monitor vital signs, I&Os, neuro status and patient is a fall risk - Monitor serum electrolytes, cultures and CBC - Chronically on 4-5 L NC baseline, Monitor Oxygen saturation, Oxygen via NC; wean oxygen as tolerated, keep SpO2 greater than 88% - pulmonology consulted placing patient on current BiPAP with no backup rate provides overnight to evaluate if adequate ventilation overnight oximetry with ABG prior to Bipap removal d dimer slightly elevated, CTA: No pulmonary embolism. No acute cardiopulmonary pathology.Secretions and less likely soft tissue density in the area of the nikolas. Prominent main pulmonary artery suggestive of pulmonary hypertension. lower extremity dopplers: no DVT Continue prednisone for COPD exacerbation, resumed home Trilogy 100 07/18: Overnight patients home bipap failed. She was not able to remain on the bipap and was transitioned to high flow NC. Discussed her with pulmonolgy Dr. Santamaria and will start her on AVAPs tonight with oximetry and obtain an ABG in the am. 07/19: Patient placed on AVAPs setting per pulmonology. Her ABG pH 7.483, pCO2 64.4, pO2 65.2, and HCO3 47.2 on current settings. The oximetry done overnight showed an SpO2 < 88% for extending period of time. Discussed this with Dr. Santamaria and will increase the EPAP and min inspiratory pressure tonight and reassess oximetry. The rest of the settings are seemingly adequate as the patient has developed respiratory alkosis and the CO2 has improved. Patient has been on 9L NC during the day and sating in the upper 90-100. Will wean as tolerated for a goal of 90-94. (2) Pulmonary edema: Qualifiers: Chronicity: acute Qualified Code(s): J81.0 - Acute pulmonary edema Code(s): J81.1 - Chronic pulmonary edema Status: Acute Assessment and Plan: - CXR: 1. Mild pulmonary edema. 2. Cardiomegaly. - BNP 1380 - Echo: LVEF 60-65% and mild pulmonary hypertension 47 mmHg - currently on: Lasix 40 mg b.i.d. PO - daily weights - monitor I&Os - trend renal function (3) Hypertension: Qualifiers: Hypertension type: primary hypertension Qualified Code(s): I10 - Essential (primary) hypertension Code(s): I10 - Essential (primary) hypertension Status: Chronic Assessment and Plan: - chronic - continue home medications: amlodipine 2.5 mg daily, carvedilol 25 mg b.i.d., lisinopril 40 mg daily - monitor (4) RAFAEL (obstructive sleep apnea): Code(s): G47.33 - Obstructive sleep apnea (adult) (pediatric) Status: Chronic Assessment and Plan: - AVAPs overnight as above (5) Acute kidney injury: Code(s): N17.9 - Acute kidney failure, unspecified Status: Acute Assessment and Plan: 07/20: BUN/Cr 38/1.4. Likely secondary to over diuresis. Will give a slow bolus of NS IV and reassess. Plan Diet: heart healthy GI Prophylaxis: not currently indicated DVT Prophylaxis: SCDs Lines: peripheral Code Status: DNR Subjective Date/time seen: 07/20/24 07:59 Interval history: 78 y/o F presents here with shortness of lorraine
[2024-07-20] MEDS: IPRATROPIUM 0.5 MG/ALBUTEROL SULFATE 2.5 MG AMPUL.NEB 3 ML INHALATION (08:25)
--- NOTE | 2024-07-20 08:50 | PM.PNPUL ---
Progress Note: A&P Assessment and Plan (1) Chronic obstructive pulmonary disease: Qualifiers: COPD type: unspecified COPD Qualified Code(s): J44.9 - Chronic obstructive pulmonary disease, unspecified Code(s): J44.9 - Chronic obstructive pulmonary disease, unspecified Status: Acute Assessment and Plan: Gold grade 2 group B COPD Patient with 57 pack year tobacco use quit at age 58, PFTs report on 12/19/2017 with moderate-severe obstructive ventilatory defect with acute BD response, RV TLC ratio consistent with air trapping. Room air arterial blood gas 7.46 compared with 05/10/2016 there is no significant changed in the time flows. DLCO has declined on present study. CT scan of chest on 01/03/2024 and 07/18/24 with mild to moderate apical predominant centrilobular emphysema. Patient with chronic hypoxemic respiratory failure requiring 4 L at rest with home saturations 90-94% prior to this illness, 4 to 4.5 L with activity with home saturations 78-84 even when she was doing well a few weeks ago for the last year, and 4 to 4.5 L with her BiPAP 21/17 at night ( BiPAP use was for obstructive sleep apnea). Patient is maintained on trelegy 100, albuterol inhaler and albuterol nebulizer p.r.n.. Patient presented to the emergency department on 07/16 with 2 weeks worsening oxygenation, fatigue, sweating, chest x-ray with bilateral infiltrates treated with azithromycin for pneumonia as an outpatient. She cannot wear her BiPAP for 2-3 days prior to presentation. She continued to progress and presented with fatigue, hypoxemia, confusion with an Serum bicarbonate greater than 40 and ABG of 7.30/115/104. She was admitted to the hospital and treated for COPD exacerbation and fluid overload with IV Lasix. The patient has COPD with chronic hypercarbic respiratory failure from her COPD. She would benefit from noninvasive ventilation to prevent further hospitalizations and deterioration. Patient failed current BiPAP 21/17 and 4 L bleed in as she had severe hypoxemia. Patient has tolerated noninvasive ventilation with an AVAPS mode with improved ventilation and oxygenation. 07/17/24: Currently the patient tells me her shortness of breath, cough and phlegm production are all back to her baseline. She denies any chest pain or wheezing. The son is in the room and states that she is looking 100% better and is no longer confused. Overall she did say she had some increased edema in her lower extremities but no change in her 2 pillow orthopnea or nocturia x1 recently. Family did state that over the last 2 nights she was unable to tolerate her home BiPAP settings. The son states that [facility] came to the house today and checked her home machine and said that everything was working well. Currently the patient is awake and communicative in no respiratory distress on 4 L nasal cannula with saturations 98%. Plan: Agree with treatment for COPD exacerbation. currently she is feeling much improved near her baseline with no wheezes. Will continue prednisone 40 mg p.o. q.day (day 1), Will place her back on her home trilogy 100. Will change her standing DuoNebs to p.r.n.. Patient had a positive D-dimer in 0.[address] angiogram of the chest and lower extremity Dopplers. Will place the patient on her home noninvasive ventilator with BiPAP 21/17 and perform overnight oximetry an ABG prior to removal. Echocardiogram has been performed with LVEF 60 65%, abnormal diastolic function, mildly enlarged left atrium, [id number] aortic valve regurgitation, mild mitral valve regurgitation, mild tricuspid valve regurgitation with PASP of 47. Normal right ventricular size and function. Normal right atrial size. She has an elevated BNP, pedal edema and agree with as aggressive diuresis as her cardiac and renal systems can not tolerate. Currently she is on Lasix 40 IV b.i.d.. We will follow ins and outs and weights. The
[2024-07-20 09:06] LABS: NT Pro B Type Natriuretic Pept 149 pg/mL (19.9-100)
[2024-07-20 09:11] LABS: Free T4 Free Thyroxine 1.25 ng/mL (0.78-2.19)
[2024-07-20] MEDS: amLODIPine BESYLATE 2.5 MG TABLET PO (09:41)
[2024-07-20] MEDS: FUROSEMIDE 40 MG TABLET PO (09:41)
[2024-07-20] MEDS: OPTI-GEN TAB 1 TABLET PO (09:41)
[2024-07-20] MEDS: FLUoxetine HCL 20 MG CAPSULE PO (09:42)
[2024-07-20] MEDS: SODIUM CHLORIDE 0.9% IV 500 ML 100 ML IV CONT (09:42)
[2024-07-20] MEDS: carvediloL 25 MG TABLET PO (09:42)
[2024-07-20] MEDS: predniSONE 20 MG TABLET 40 MG PO (09:42)
[2024-07-20] MEDS: ENOXAPARIN 40 MG/0.4 ML SYRINGE SUB-Q (10:01)
--- NOTE | 2024-07-20 12:17 | P.CDI_ITS ---
I have never seen this patient. CDI Query Clarification Request Patient with a BMI of 41.9 please provide a diagnosis to accompany this finding: * Overweight * Obesity * Morbid Obesity * Other/Unknown
--- NOTE | 2024-07-20 12:17 | WPDCDIQUERY2 ---
CDI Query Clarification Request Patient with a BMI of 41.9 please provide a diagnosis to accompany this finding: Overweight Obesity Morbid Obesity Other/Unknown
[2024-07-20] MEDS: lisinopriL 20 MG TABLET 40 MG PO (15:49)
[2024-07-20] MEDS: CHOLECALCIFEROL 1,000 UNITS TABLET 1000 UNITS PO (15:49)
[2024-07-20] MEDS: ASPIRIN 81 MG ENTERIC TABLET PO (15:49)
[2024-07-20] MEDS: SIMVASTATIN 20 MG TABLET PO (15:49)
--- NOTE | 2024-07-20 16:00 | HOMEO2EVAL ---
Evaluation was performed at [facility] Home Oxygen Evaluation RC: Home Oxygen (O2) Evaluation Start: 07/20/24 13:11 Freq: ONCE Status: Active Protocol: RPE Activity Type Activity Date Activity User E-sign Co-sign Detail Recorded Client Recorded Date Recorded By Document 07/20/24 15:20 [email or web address] 07/20/24 15:58 KLA Document 07/20/24 15:21 [email or web address] [email or web address] 07/20/24 15:58 KLA Document 07/20/24 15:22 [email or web address] [email or web address] 07/20/24 15:58 KLA Document 07/20/24 15:24 [email or web address] [email or web address] 07/20/24 15:58 KLA Document 07/20/24 15:25 [email or web address] [email or web address] 07/20/24 15:58 KLA Document 07/20/24 15:26 [email or web address] [email or web address] 07/20/24 15:58 KLA 07/20/24 07/20/24 07/20/24 15:20 15:21 15:22 Home O2 Evaluation [Oxygen] -Test Phase Resting Resting Resting -Oxygen Delivery Nasal Cannula Nasal Cannula Nasal Cannula -Oxygen Flow Rate (L/min) 4 5 6 [Pulse Oximetry] -Pulse Oximetry (90-100 %) 85 L 87 L 90 [Pulse Rate] -Pulse Rate (60-100 beats/min) 84 84 68 [Evaluation] -Activity Tolerance -Rating of Perceived Dyspnea (PD) [Exercise] -Ambulation Distance (feet) -Ambulation Distance (meters) [Charges] -Evaluation Charges O2 Evaluation by Pulmonary 07/20/24 07/20/24 07/20/24 15:24 15:25 15:26 Home O2 Evaluation [Oxygen] -Test Phase Exercise Exercise Exercise -Oxygen Delivery Nasal Cannula High Flow Nasal High Flow Cannula Therapy with Nasal Cannula -Oxygen Flow Rate (L/min) 6 7 8 [Pulse Oximetry] -Pulse Oximetry (90-100 %) 86 L 87 L 89 L [Pulse Rate] -Pulse Rate (60-100 beats/min) 82 82 80 [Evaluation] -Activity Tolerance Good -Rating of Perceived Dyspnea (PD) +1 Mild, Noticeable to the Participant but Not to an Observer [Exercise] -Ambulation Distance (feet) 40 -Ambulation Distance (meters) 12.19 [Charges] -Evaluation Charges
--- NOTE | 2024-07-20 16:00 | PCRCNOTE ---
Home oxygen evaluation completed. Patient requires 6 liters at rest and 8 liters with activity. Patient's son to bring tanks in for transport home and patient already has a high flow oxygen concentrator at home. [facility] to set patient up for a non-invasive ventilator at her home today and overnight oximetry study to be done in her home tonight as well.
--- NOTE | 2024-07-20 17:07 | PM.DS ---
DS: Admitting Diagnosis Discharge Date 07/20/2024 Admitting Diagnosis Acute hypercapic respiratory failure Pulmonary edema HTN RAFAEL NIKHIL DS: Discharge Diagnosis Discharge Diagnosis (1) Acute hypercapnic respiratory failure: Code(s): J96.02 - Acute respiratory failure with hypercapnia Status: Acute (2) Pulmonary edema: Qualifiers: Chronicity: acute Qualified Code(s): J81.0 - Acute pulmonary edema Code(s): J81.1 - Chronic pulmonary edema Status: Acute (3) Hypertension: Qualifiers: Hypertension type: primary hypertension Qualified Code(s): I10 - Essential (primary) hypertension Code(s): I10 - Essential (primary) hypertension Status: Chronic (4) RAFAEL (obstructive sleep apnea): Code(s): G47.33 - Obstructive sleep apnea (adult) (pediatric) Status: Chronic (5) Acute kidney injury: Code(s): N17.9 - Acute kidney failure, unspecified Status: Acute DS: Summary Hospital Course Reason for hospitalization: Acute hypercapic respiratory failure Pulmonary edema HTN RAFAEL NIKHIL Hospital Course: 78 y/o F presents here with shortness of breath and altered mental status with PMH of asthma, COPD on chornic O2, depression, hyperlipidemia, hypertension, RAFAEL. Of note, patient had not been wearing her BIPAP for 2-3 days prior to presentation. A Chest XR showed mild pulmonary edema and cardiomegaly. BNP slightly elevated. Echo with LVEF 60-65% and mild pulmonary hypertension 47 mmHg. D dimer elevated. Chest CTA ruled out PE. Doppler ruled out DVT. Patients ABG on admission showed a pH 7.296, pCO2 115.1, pO2 104.2, HCO3 54.9, O2 sat 96.6% on 5L NC. She was placed on bipap and pulmonology was consoulted for concern of COPD exacerbation with CO2 narcosis secondary to noncompliance with Bipap. on 07/18 patients home bipap failed. She was not able to remain on the bipap and was transitioned to high flow NC. Discussed her with pulmonolgy Dr. Santamaria and will start her on AVAPs tonight with oximetry and obtain an ABG in the am. On 07/19 patient placed on AVAPs setting per pulmonology. Her ABG pH 7.483, pCO2 64.4, pO2 65.2, and HCO3 47.2 on current settings. The oximetry done overnight showed an SpO2 < 88% for extending period of time. Discussed this with Dr. Santamaria and will increase the EPAP and min inspiratory pressure tonight and reassess oximetry. On 07/20 discussed patient with pulmonolgy and will adjust the AVAPs for better oxygenation. Per pulmonology perspective patient was cleared for discharge on these setting as she was able to obtain a machine through [employer]. Prior to discharge respiratory therapy did an home O2 eval and patient is to be on 6L at rest and 8L with ambulation. classroom coordinator has confirmed that [facility] can set up the patient has noninvasive ventilator with the AVAPS and 8 L bleed in. They are to perform overnight oximetry on the 8 L bleed in tonight. With plan to follow up with Dr. Mendez as scheduled. Patient did have a slight NIKHIL on am labs with a Cr 1.4. Patient continues to have good urine output and this is likely due to over diuresis while on IV lasix. She received a 500 ml bolus. Patient is to obtain a BMP in 3 days to reassess NIKHIL and follow up with her PCP. Prior to discharge patient denied chest pain, shortness of breath, nausea/vomiting and changes in bowel/bladder. Patient discharged home in stable condition. She is to follow up with her PCP in 1 week and obtain a BMP to reassess NIKHIL in 3 days. Patient is to follow up with Dr. Santamaria as scheduled. Status at Discharge Functional status at discharge: independent ambulation Time Spent with Patient Time attestation: Total time spent providing and/or coordinating discharge services: Time spent: Greater than 30 minutes Exam Narrative: AF HR 62 RR 22 SpO2 89 8L high flow BP 128/63 General: female in no acute respiratory distress who is nontoxic appearing, lying semi recumbent in bed
[2024-07-21 12:58] LABS: Adenovirus DNA Not Detected (Not Detected); Chlamydophila pneumoniae Not Detected (Not Detected); Coronavirus 229E Not Detected (Not Detected); Coronavirus HKU1 Not Detected (Not Detected); Coronavirus NL63 Not Detected (Not Detected); Coronavirus OC43 Not Detected (Not Detected); Human Metapneumovirus Not Detected (Not Detected); Human Parainfluenza Virus 1 Not Detected (Not Detected); Human Parainfluenza Virus 2 Not Detected (Not Detected); Human Parainfluenza Virus 3 Not Detected (Not Detected); Human Parainfluenza Virus 4 Not Detected (Not Detected); Human RSV B Not Detected (Not Detected); Influenza A Not Detected (Not Detected); Influenza B Not Detected (Not Detected); Mycoplasma pneumoniae Not Detected (Not Detected); Rhinovirus/Enterovirus Not Detected (Not Detected)
== END 2024-07-20 17:17 | disposition home or self-care (01) | DRG 189 ==
LOC: ANHED 14:33 → ANHIMU 17:02
PROVIDERS: Internal Medicine Pulmonary Disease; Student in an Organized Health Care Education/Training Program; Admitting Provider General Practice; Emergency Provider Emergency Medicine; PCP Internal Medicine; Visit Provider Student in an Organized Health Care Education/Training Program
DX: J96.21 Acute and chronic respiratory failure with hypoxia (principal); J81.0 Acute pulmonary edema; N17.9 Acute kidney failure, unspecified; J96.22 Acute and chronic respiratory failure with hypercapnia; J43.2 Centrilobular emphysema; E78.5 Hyperlipidemia, unspecified; F32.A Depression, unspecified; G47.33 Obstructive sleep apnea (adult) (pediatric); I10 Essential (primary) hypertension; J44.9 Chronic obstructive pulmonary disease, unspecified; Z99.81 Dependence on supplemental oxygen; Z91.199 Patient's noncompliance with other medical treatment and regimen due to unspecified reason; Z79.82 Long term (current) use of aspirin; Z87.891 Personal history of nicotine dependence; Z20.822 Contact with and (suspected) exposure to COVID-19
CPT/HCPCS: 36415; 36600; 71046; 71275; 80053; 81001; 82104; 82375; 82805; 83050; 83605; 83880; 84439; 84443; 84484; 85025; 85380; 86140; 87633; 87637; 93005; 93308; 93970; 94002; 94003; 94618; 94640; 94762; 96374; 96375; 97161; 97165; 99199; 99291; A9270; C8929; G0378; J1650; J1940; J7040; J7512; Q9957; Q9967

== ENCOUNTER 2024-12-09 08:03 | Outpatient (CLI) | payer MEDICARE, SELFPAY ==
[2024-12-09] VITALS (8 sets, daily range): PULSE 59–100; O2SAT 84–92
--- NOTE | 2024-12-09 11:57 | HOMEO2EVAL ---
Evaluation was performed at [facility] Home Oxygen Evaluation RC: Home Oxygen (O2) Evaluation Start: 12/09/24 09:18 Freq: Status: Active Protocol: RPE Activity Type Activity Date Activity User E-sign Co-sign Detail Recorded Client Recorded Date Recorded By Document 12/09/24 08:30 [email or web address] [email or web address] 12/09/24 11:56 DJO Document 12/09/24 08:35 [email or web address] [email or web address] 12/09/24 11:56 DJO Document 12/09/24 08:40 [email or web address] [email or web address] 12/09/24 11:56 DJO Document 12/09/24 08:45 [email or web address] [email or web address] 12/09/24 11:56 DJO Document 12/09/24 08:50 [email or web address] [email or web address] 12/09/24 11:56 DJO Document 12/09/24 08:55 [email or web address] [email or web address] 12/09/24 11:56 DJO Document 12/09/24 09:00 [email or web address] [email or web address] 12/09/24 11:56 DJO Document 12/09/24 09:05 [email or web address] [email or web address] 12/09/24 11:56 DJO 12/09/24 12/09/24 12/09/24 08:30 08:35 08:40 Home O2 Evaluation [Oxygen] -Test Phase Resting Resting -Oxygen Delivery Room Air Nasal Cannula Nasal Cannula -Oxygen Flow Rate (L/min) 1 2 [Pulse Oximetry] -Pulse Oximetry (90-100 %) 85 L 88 L 92 [Pulse Rate] -Pulse Rate (60-100 beats/min) 59 L 62 59 L [Evaluation] -Activity Tolerance [Exercise] -Ambulation Distance (feet) -Ambulation Distance (meters) 12/09/24 12/09/24 12/09/24 08:45 08:50 08:55 Home O2 Evaluation [Oxygen] -Test Phase Exercise Exercise Exercise -Oxygen Delivery Nasal Cannula Nasal Cannula Nasal Cannula -Oxygen Flow Rate (L/min) 2 4 6 [Pulse Oximetry] -Pulse Oximetry (90-100 %) 84 L 85 L 87 L [Pulse Rate] -Pulse Rate (60-100 beats/min) 99 98 100 [Evaluation] -Activity Tolerance [Exercise] -Ambulation Distance (feet) -Ambulation Distance (meters) 12/09/24 12/09/24 09:00 09:05 Home O2 Evaluation [Oxygen] -Test Phase Exercise Exercise -Oxygen Delivery Nasal Cannula Nasal Cannula -Oxygen Flow Rate (L/min) 7 8 [Pulse Oximetry] -Pulse Oximetry (90-100 %) 87 L 89 L [Pulse Rate] -Pulse Rate (60-100 beats/min) 98 99 [Evaluation] -Activity Tolerance Good [Exercise] -Ambulation Distance (feet) 400 -Ambulation Distance (meters) 121.91
--- NOTE | 2024-12-13 22:27 | WPDPFTINT ---
PFT Procedure Performed PFT Procedure Performed Spirometry with Pre/Post Bronchodilator Plethysmography (Lung Vol) Diffusing Cap (DLCO) Flow Vol Loop PFT Interpretation DOS: 12/09/2024 REQUESTING: Neto Santamaria MD REASON FOR TESTING: COPD PULMONARY FUNCTION TESTS Results are reliable and reproducible. Repeatability of spirometry FEV1 maneuver pre and post bronchodilator is Grade A. Leodan: GLI 2012 reference equations were used. Spirometry: The pre-bronchodilator FEV1 is 0.63 L, 34%, severely decreased. The pre-bronchodilator FVC is 1.50 L, 62%, decreased. The FEV1/FVC ratio is 42%, decreased. After bronchodilator, the FEV1 is 0.77 L, 41%, +22%. After bronchodilator, the FVC is 1.57 L, 65%, +5%. The FEV1/FVC ratio is 49%. Lung volumes: The total lung capacity is 5.28, 112%. The residual volume is 3.77 L, 170%, increased, consistent with air trapping. The RV/TLC is 72%. Airway resistance is increased. Diffusion: DLCO is 5.4, 28%, severely decreased. The DLCO/VA is 2.35, 55%, moderately decreased. Flow volume loop: The flow volume loop shows coving of the expiratory limb. IMPRESSION: This study shows extremely severe obstructive ventilatory impairment without significant response following bronchodilator, moderate air trapping and a severe diffusion impairment partially corrects for alveolar volume. Compared to a prior study on 12/18/2017, the FEV1 was 0.94 L, 51% and the FVC was 1.68 L, 65%. Airflow obstruction was present. Air trapping was present, not as severe. Diffusion impairment was also present, now more severe. Progression of disease is demonstrated. Rosalba Gill MD
--- NOTE | 2024-12-13 22:32 | P.PCNSIX_ITS ---
Six Minute Walk Procedure Procedure Performed Pulmonary Stress Test (6 min walk) Six Minute Walk Six Minute Walk: DATE OF SERVICE: 12/09/2024 REQUESTING: Neto Santamaria MD REASON FOR TESTING: COPD SIX MINUTE WALK This test was conducted per ATS guidelines. The patient used 8 liters/minute using a high-flow cannula and she pulled 2 E Tanks during the walk. The initial saturation was 96%, and initial heart rate was 60 beats per minute. The patient stopped during the walk twice for 20 seconds to rest, and she stopped the test at 4 minutes due to shortness of breath. She walked a total distance of 129.2 m/400 ft. The lowest saturation during the test was 89% at this occurred at the end of the test. Pulse was 93 beats per minute at the end of the test. Her dyspnea fatigue score was 1 at the beginning of the test and 8 at the end of the test. IMPRESSION: This study shows that the patient maintained a saturation 89% and above while breathing 8 L/min through a high flow nasal cannula and pulling 2 E- tanks. The distance walked is less than expected for her age. Rosalba Gill MD
== END 2024-12-09 08:04 | disposition home or self-care (01) ==
PROVIDERS: PCP Internal Medicine; Visit Provider Internal Medicine Pulmonary Disease
DX: J44.9 Chronic obstructive pulmonary disease, unspecified (principal)
CPT/HCPCS: 94060; 94618; 94726; 94729

== ENCOUNTER 2025-04-16 09:30 | Outpatient (RCR) | payer MEDICARE, SELFPAY | END 2025-04-16 23:59 | disposition home or self-care (01) | LOC: ANHCPREHAB 09:30 | PROVIDERS: PCP Internal Medicine; Visit Provider Internal Medicine Pulmonary Disease | DX: J44.9 Chronic obstructive pulmonary disease, unspecified (principal) | CPT/HCPCS: 94625 ==

== ENCOUNTER 2025-04-27 09:30 | Outpatient (RCR) | payer MEDICARE, SELFPAY | END 2025-05-18 10:53 | disposition home or self-care (01) | LOC: ANHCPREHAB 09:30 | PROVIDERS: PCP Internal Medicine; Visit Provider Internal Medicine Pulmonary Disease | DX: J44.9 Chronic obstructive pulmonary disease, unspecified (principal) | CPT/HCPCS: 94625 ==

== ENCOUNTER 2025-05-03 07:59 | Outpatient (CLI) | payer MEDICARE, SELFPAY ==
--- OUTSIDE RECORDS SUMMARY | 2025-05-03 08:08 | XMS_ITS | Data Portability ---
Author Organization [facility], Main Office Address [address] [place] [address] Care Team Providers Care Sled Maker Name Role Phone CONRADO LUNDY Primary Care Provider [phone] Assessment No assessment recorded. Plan of Treatment Reminders Order Date Submit Date Provider Last Modified By Organization Details Last Modified Time Details Appointments None recorded. Lab lipid panel, serum 2024 025 [email or web address] [facility], [address] [place] [address], [id number], 09:00:06 CBC w/ auto diff 2024 025 [email or web address] [facility], [address] [place] [address], [address], 09:00:06 CMP, serum or plasma 2024 025 [email or web address] [facility], [address] [place] [address], [address], 09:00:06 TSH, ultra-sens itive, serum 2024 025 [facility], [address] [place] [address], [id number], 09:00:06 TSH, ultra-sens itive, serum 2024 025 [email or web address] [facility], [address] [place] [address], [address], 09:00:06 vitamin D, 25-hydroxy , total, serum 2024 025 [facility], [address] [facility], [facility] [address], [place], [address], 5 13:50:46 lipid panel, serum 2024 025 [facility], [address] [place] [address], [facility] [address], [place], [address], 5 13:50:45 CMP, serum or plasma 2024 025 [email or web address] [facility], [address] [place] [address], [facility] [address], [place], [address], 5 13:50:45 TSH, ultra-sens itive, serum 2024 025 [facility], [address] [place] [address] 2, [place], [address], 5 13:50:45 unlisted lab - T4, free 2024 025 [email or web address] [facility], [address] [place] [address] 2, [place], [address], 5 13:50:45 lipid panel, serum 2023 024 [email or web address] [facility], [address] [place] [address] 2, [place], [address], 4 12:13:36 CMP, serum or plasma 2023 024 [email or web address] [facility], [address] [place] [address] 2, [place], [address], 4 12:13:36 CBC w/ auto diff 2023 024 [email or web address] [facility], [address] [place] [address] 2, [place], [address], 4 12:13:36 TSH, ultra-sens itive, serum 2023 024 [email or web address] [facility], [address] [facility], [facility] 2, [place], [address], 4 12:13:36 unlisted lab - T4, free 2023 024 [email or web address] [facility], [address] [facility], [facility] [address], [place], [address], 4 12:13:36 lipid panel, serum 2023 024 [email or web address] [facility], [address] [facility], [facility] [address], [place], [address], 4 11:25:59 CMP, serum or plasma 2023 024 [email or web address] [facility], [address] [facility], [facility] 2, [place], [address], 4 11:25:59 CBC w/ auto diff 2023 024 [email or web address] [facility], [address] [facility], [facility] [address], [place], [address], 4 11:25:59 TSH + free T4, serum 2023 024 [email or web address] [facility], [address] [facility], [facility] [address], [place], [address], 4 11:25:59 unlisted lab - T4, free 2023 024 [email or web address] [facility], [address] [facility], [facility] 2, [place], [address], 4 11:26:00 Referral None recorded. Procedures None recorded. Surgeries None recorded. Imaging None recorded. Medication Orders None recorded. Patient TargetsNo targets recorded. Patient Instructions Encounter Date Encounter Id Patient Instructions Last Modified By Organization Details Last Modified Time 12/10/2023 [id number] Follow-up hypertension -hyperlipidemia-hyp othyroidism -chronic obstructive lung disease -obstructive sleep apnea -obesity class three all clinically stable. Had blood work performed back in August. Overall is doing well. Will check a CBC, CMP, lipid and thyroid. Continue on current Rx follow-up in four months Portions of the record may have been created with voice recognition software. Occasional wrong-word or kxnyy-d-lqxg substitutions may have occurred due to the inherent limitations of voice recognition software. Read the chart carefully and recognize, using context, where substitutions have occurred. Not available 12/10/2023 11:47:43 04/14/2024 [id number] dementia rating scale-2* [email or web address] Not available 04/14/2024 11:07:10 alcohol misuse* [email or web address] Not available 04/14/2024 11:07:10 depression screening* [email or web address] Not available 04/14/2024 11:07:10 Timed Up and Go test (TUG)* [email or web address] Not available 04/14/2024 11:07:10 multi-dimensiona l health assessment questionnaire* [email or web address] Not available 04/14/2024 11:07:10 Personalized [facility] Plan and Screening Recommendations Advance Directives - Do you have one? Yes Advance Directives - Do we have your advance directive on file in your health record? Primary Prevention/Interven tion (prevents or decreases the chance of common diseases from occurring) Smoking Risk: Non Smoker Alcohol Misuse Screening: Negative Weight: Overweight try to lose 10% of your body weight Physical activity: Need more exercise/physical activity Nutrition: Average Refer to attached handout Heart-Healthy Diet: After Your Visit Refer to attached handout DASH Diet: After Your Visit Recommend consultation with a manager call center Eat heart healthy diet Fall Risk (screened today): Intermediate Recommend regular use of cane or walker Vaccines Pneumococcal: No further needed Influenza: Your next one in the fall of this year Chronic Disease Risks Stroke: Intermediate Risk Active diagnosis, Continue current treatment plan Heart Attack: Intermediate Risk Active diagnosis, Continue current treatment plan Clogging of the Arteries: Intermediate Risk Active diagnosis, Continue current treatment plan Diabetes: Intermediate Risk Drastically limit sugar and products made with any type of flour (bread, pasta, cereal, cookies, crackers, etc.) Secondary Prevention/Interven tion (detects treatable diseases before they may cause symptoms, disability, or ) Breast Cancer Screening with mammogram: Recommended today, but you have declined Cervical/Uterine/Ov or[place] Cancer Screening: No screening necessary Osteoporosis Screening: Your next DEXA in: Ordered Recomme nded today Recommended today, but you have declined No screening necessary up to date Date Screening Last Performed: Colon Cancer Screening: Colonoscopy In: Ordered Recomme nded Recommended today, but you have declined No screening necessary due 2026 Date Screening Last Performed: __2016__ Eye Disease Screening: Ordered Recommended today Recommended today, but you have declined No Eye exam necessary Your next exam in: goes every 4 mos Dementia Risk: Low I have no recommendations Depression Screening: Negative Recommend additional evaluation and/or treatment as noted above Recommend follow appointment to further evaluate Recommend Behavioral Health referral Active diagnosis, Continue current treatment plan I have no recommendations [email or web address] Not available 04/14/2024 10:59:43 Medicare wellnes s evaluation risk assessment stable. Follow-up for chronic obstructive lung disease, hypertension, hyperlipidemia, hypothyroidism and obesity class three. All clinically stable. Will check blood work consisting of a lipid, CMP, thyroid and CBC. Continue on current Rx follow-up in four months Mammogram Next Appointment: 4 Months Approximate Date: 08/12/2024 Portions of the record may have been created with voice recognition software. Occasional wrong-word or ikpjm-o-oanx substitutions may have occurred due to the inherent limitations of voice recognition software. Read the chart carefully and recognize, using context, where substitutions have occurred. [email or web address] Not available 04/14/2024 11:06:49 08/18/2024 [id number] Follow-up essent ial hypertension, hypothyroidism, hyperlipidemia, chronic obstructive lung disease obesity class two. Clinically stable at this time. Will check blood work on next visit. Cholesterol and other laboratory studies are doing well at this time. Follow-up in four months. Next Appointment: 4 Months Approximate Date: 12/16/2024 Portions of the record may have been created with voice recognition software. Occasional wrong-word or znezp-u-vmrs substitutions may have occurred due to the inherent limitations of voice recognition software. Read the chart carefully and recognize, using context, where substitutions have occurred. [email or web address] Not available 08/18/2024 11:35:33 12/15/2024 [id number] Follow-up chroni c obstructive lung disease severe, essential hypertension, hyperlipidemia, hypothyroidism and obesity class three all clinically stable. Will check blood work consisting of CMP, lipid, thyroid and vitamin-D level. Does need a mammogram. Was given a Prevnar 20 shot. Will continue with current medications and follow-up in four months Additional Orders - Directives - Recommendations 1. Screening mammogram Follow Up: 4 Months Approximate Date: 04/14/2025 Portions of the record may have been created with voice recognition software. Occasional wrong-word or kfpbn-z-zhnj substitutions may have occurred due to the inherent limitations of voice recognition software. Read the chart carefully and recognize, using context, where substitutions have occurred. Created: Conrado Lundy M.D. 12.15.2024 09:41 AM [email or web address] Not available 12/15/2024 10:41:55 04/20/2025 [id number] Medicare wellnes s evaluation risk assessment. Follow-up for chronic obstructive lung disease, essential hypertension, hyperlipidemia, hypothyroidism and obesity class three. Will continue on current medications. Check blood work consisting of CBC, CMP, lipid, thyroid. Also needs a low-dose CT scan and mammogram. Will continue on current medications and follow-up in four months Additional Orders - Directives - Recommendations 1.. Mammogram 2. low-dose CT scan of the chest Follow Up: 4 Months Approximate Date: 08/18/2025 Portions of record are template driven. When necessary additional context will be provided. Additionally some portions have been created with voice recognition software. Occasional wrong-word or dyusg-k-qpnm substitutions may have occurred due to the inherent limitations of voice recognition software. Read the chart carefully and recognize, using context, where substitutions may have occurred. Created: Conrado Lundy M.D. 04.20.2025 09:38 AM [email or web address] Not available 04/20/2025 10:38:24 Reason for Referral None Reported. Results Created Date Observation Date Name Description Value Unit Range Abnormal Flag Note LastModifiedBy Organization Detail LastModifiedTime 01/03/2001/03/2024 CT, chest , w/o contr ast No observ ation record ed. [email or web address] [facility] [address], [place], [address], 01/04/2024 06:49:40 07/08/20 24 XR, chest , 2 view [facility] [address] [place] [address] Patien t Name: KULWANT FUNES ion #: [id number] Sex: F : 1944 5 Dictat ed By: Talat Parikh Attend ing Physic tammy: HELENA LUNDY CE Orderi ng Physic tammy: HELENA LUNDY CE Exam Date: 2023 13:02 PM Exam Name: XR CHEST 2V Admitt ing Diagno sis(es ): XR CHEST 2V CLINIC AL HISTOR Y: dyspne a COMPAR KASI: None TECHNI QUE: Fronta l and latera l view of the chest was obtain ed FINDIN GS: Lines and Tubes: None Lungs: Bibasi lar airspa ce opacit ies. Pleura : No effusi on. No pneumo thorax . Cardio medias tinal contou rs: Unrema rkable Bones: No acute osseou s abnorm ality. IMPRES KRYS: Bibasi lar airspa ce pneumo sunny. Electr onical ly Signed by: Talat Parikh at 2023 16:48: 31 PM Page [address] ([facility]) [address] [place], [address], 07/08/2024 21:36:05 07/16/20 24 07/16/2024 XR, chest , 1 view No observ ation record ed. [address], [address], 07/17/2024 09:11:23 07/17/20 24 07/17/2024 US, echoc ardio gram No observ ation record ed. [address], [address], 07/17/2024 16:30:53 07/17/20 24 07/17/2024 US, doppl er, venou s No observ ation record ed. [address], [address], 07/17/2024 17:20:54 07/17/20 24 07/17/2024 XR, angio gram, pulmo nary, bilat eral No observ ation record ed. [address], [place], [address], 07/17/2024 17:22:16 07/20/20 24 07/20/2024 US, echoc ardio gram No observ ation record ed. [address], [place], [address], 07/20/2024 13:52:40 12/13/19 25 12/09/2024 PFT, compl ete No observ ation record ed. [address] [address], [place], [address], 12/14/2024 06:49:11 12/13/19 25 12/09/2024 six minut e walk test* No observ ation record ed. [address], [place], [address], 12/14/2024 06:49:46 Result Notes None recorded. Problems Name Problem SNOMED Code Status Onset Date Resolution Date Notes Provider Name and Address Organization Details Recorded Time Chronic obstructive pulmonary disease 69862807 Active Not Available [facility] 3 11:34:27 Pure hypercholeste rolemia 606727781 Active Nicole samuel [employer] 5 11:00:29 Vitamin D deficiency 89731378 Active 2021 Not Available [facility] 3 11:34:27 Hypothyroidis m 64373170 Active Nayely samuel [employer] 5 10:53:58 Obesity 460321091 Active 2021 Not Available [facility] 3 11:34:27 Essential hypertension 10532029 Active Nicole samuel [employer] 5 11:00:04 Obstructive sleep apnea syndrome 62320597 Active 2016 Not Available [facility] 3 11:34:27 Cobalamin deficiency 024611665 Active 2022 Not Available [facility] 3 11:34:27 Obese class III 270312033 Active 2023 Conrado Lundy MD [address] [facility], [facility] [address], [place], [address] , [facility] [employer] [facility] 4 11:44:12 Dyspnea 591723219 Active 2023 Corinne Dodge CMA null, [facility] [employer] [facility] 4 12:58:16 Acute bronchitis 52598807 Active 2023 Conrado Lundy MD [address], [facility] [address], [place], [address] , [facility] [employer] [facility] 4 09:51:34 Senile osteoporosis 08821845 Active 2024 Nayely Win null, [facility] [employer] [facility] 5 10:50:40 Problem Notes None recorded. Procedures Surgical History Date Name Laterality Status Provider Name and Address Organization Details Recorded Time 04/14/20 24 Medicare Wellness CPT Code, subsequent completed Susan Khalil RN [facility] [employer] [facility] 04/14/2024 10:52:26 04/02/20 23 Medicare Wellness CPT Code, subsequent completed Ginette Galindo RN [facility] [employer] [facility] 04/02/2023 11:02:58 06/10/20 20 Most Recent Bone Density completed Not Available [facility] 01/23/2023 15:23:07 11/20/20 17 Date of Last Colonoscopy completed Not Available [facility] 01/23/2023 15:23:07 11/20/20 17 Colon ca scrn not hi rsk ind completed Not Available [facility] 01/23/2023 15:23:08 Imaging Results None recorded. Procedure Notes None recorded. Medical Equipment None Reported. Medications Name Sig Start Date Stop Date Status Note LastModified by Organization Details LastModified Time amoxicillin 500 mg capsule Take 1 capsule every 8 hours by oral route. active Not Available Not Available No t Available furosemide 40 mg tablet TAKE 1 TABLET BY MOUTH TWICE A DAY active Not Available Not Available No t Available Augmentin 875 mg-125 mg tablet Take 1 tablet every 12 hours by oral route. 12/05 completed Not Available Not Available Not Available carvedilol 25 mg tablet TAKE 1 TABLET BY MOUTH TWICE A DAY active Not Available Not Available No t Available prednisone 10 mg tablet TAKE 4 TABLETS BY MOUTH EVERY DAY FOR 5 DAYS 07/31 completed Not Available Not Available Not Available doxycycline hyclate 100 mg capsule TAKE 1 CAPSULE BY MOUTH EVERY DAY 07/31 completed Not Available Not Available Not Available carvedilol 12.5 mg tablet TAKE 1 TABLET 3 TIMES A DAY active Not Available Not Available No t Available albuterol sulfate 2.5 mg/3 mL (0.083 %) solution for nebulizatio n 2.5 MG (3 ML) INHALED EVERY 6 HOURS NEEDED FOR SHORTNESS OF BREATH OR WHEEZING active Not Available Not Available No t Available azithromyci n 250 mg tablet TAKE 2 TABLETS BY MOUTH TODAY, THEN TAKE 1 TABLET DAILY FOR 4 DAYS DIRECTED 12/15 completed Not Available Not Available Not Available ofloxacin 0.3 % eye drops INSTILL 1 DROP 3 TIMES A DAY STARTING 2 DAYS BEFORE SURGERY AND CONTINUIN G 1 WEEK AFTER. active Not Available Not Available No t Available benzonatate 200 mg capsule TAKE 1 CAPSULE BY MOUTH THREE TIMES A DAY 12/15 completed Not Available Not Available Not Available Coreg 6.25 mg tablet Take 1 tablet twice a day by oral route. 2012 active Not Available Not Available Not Avai lable lisinopril 20 mg tablet please check your records this was faxed back 06-07-14 active Not Available Not Available No t Available prednisone 20 mg tablet TAKE 2 TABLETS BY MOUTH EVERY DAY 04/20 completed Not Available Not Available Not Available Synthroid 100 mcg tablet Take 1 tablet every day by oral route. 2012 active Not Available Not Available Not Avai lable amlodipine 2.5 mg tablet TAKE 1 TABLET BY MOUTH EVERY DAY active Not Available Not Available No t Available aspirin 81 mg tablet,zandra yed release Take 1 tablet every day by oral route. 2012 active Not Available Not Available Not Avai lable triamcinolo ne acetonide 0.1 % topical cream APPLY THIN COAT TO AFFECTED AREA TWICE A DAY active Not Available Not Available No t Available ketorolac 0.5 % eye drops INSTILL 1 DROP 3 TIMES A DAY 2 DAYS BEFORE SURGERY AND CONTINUE FOR 2 WEEKS AFTER. active Not Available Not Available No t Available prednisolon e acetate 1 % eye drops,suspe nsion INSTILL 1 DROP 3 TIMES A DAY STARTING AFTER SURGERY AND CONTINUE FOR 3 WEEKS AFTER. active Not Available Not Available No t Available simvastatin 20 mg tablet TAKE 1 TABLET BY MOUTH EVERY DAY active Not Available Not Available No t Available Prozac 20 mg capsule Take 1 capsule every day by oral route. 2017 active Not Available Not Available Not Avai lable fluoxetine 20 mg tablet TAKE 1 TABLET BY MOUTH EVERY DAY FOR 90 DAYS active Not Available Not Available No t Available levothyroxi ne 125 mcg tablet TAKE 1 TABLET BY MOUTH EVERY DAY 05/07 completed Not Available Not Available Not Available levothyroxi ne 150 mcg tablet TAKE 1 TABLET BY MOUTH EVERY DAY active Not Available Not Available No t Available budesonide 0.25 mg/2 mL suspension for nebulizatio n USE TWICE DAILY active Not Available Not Available No t Available mupirocin 2 % topical ointment APPLY 1 APPLICATI ON TOPICALLY TWICE A DAY active Not Available Not Available No t Available ergocalcife rol (vitamin D2) 1,250 mcg (50,000 unit) capsule TAKE 1 CAPSULE(S ) EVERY WEEK BY ORAL ROUTE BEFORE MEALS. active Not Available Not Available No t Available methylpredn isolone 4 mg tablets in a dose pack TAKE 6 TABLETS ON DAY 1 DIRECTED ON PACKAGE AND DECREASE BY 1 TAB EACH DAY FOR A TOTAL OF 6 DAYS 07/31 completed Not Available Not Available Not Available albuterol sulfate HFA 90 mcg/actuati on aerosol inhaler 1 - 2 INHALED EVERY 4 - 6 HOURS NEEDED FOR SHORTNESS OF BREATH OR WHEEZING active Not Available Not Available No t Available lisinopril 40 mg tablet TAKE 1 TABLET BY MOUTH EVERY DAY active Not Available Not Available No t Available cefdinir 300 mg capsule Take 1 capsule every 12 hours by oral route. 06/07 completed Not Available Not Available Not Available sodium chloride 0.9 % for nebulizatio n use with albuterol in nebulizer three times a day active Not Available Not Available No t Available albuterol sulfate concentrate 5 mg/mL(0.5 %) solution for nebulizatio n Inhale 0.5 mL 3 times a day by inhalatio n route. 10/29 completed Not Available Not Available Not Available oxycodone 5 mg tablet TAKE 1 TABLET BY MOUTH EVERY 12 HOURS NEEDED FOR PAIN 07/31 completed Not Available Not Available Not Available Multivitami n 50 Plus tablet Take 1 tablet every day by oral route. active Not Available Not Available No t Available albuterol sulfate concentrate 2.5 mg/0.5 mL solution for nebulizatio n INHALE 0.5 ML 3 TIMES A DAY BY NEBULIZAT ION ROUTE. active Not Available Not Available No t Available levalbutero l concentrate 1.25 mg/0.5 mL solution for nebulizatio n Please specify direction s, refills and quantity active Not Available Not Available No t Available eszopiclone 2 mg tablet TAKE TABLET WITH [facility]. 04/02 completed Not Available Not Available Not Available multivitami n once daily 08/06 completed Not Available Not Available Not Available Symbicort 160 mcg-4.5 mcg/actuati on HFA aerosol inhaler Inhale 2 puffs twice a day by inhalatio n route. 10/27 completed Not Available Not Available Not Available Spiriva Respimat 2.5 mcg/actuati on solution for inhalation Inhale 2 puffs every day by inhalatio n route. 10/27 completed Not Available Not Available Not Available oxygen 4 liters as needed 2017 active Not Available Not Available Not Avai lable Trelegy Ellipta 100 mcg-62.5 mcg-25 mcg powder for inhalation 1 INHALED DAILY FOR 90 DAYS RINSE AND SPIT active Not Available Not Available No t Available Xhance 93 mcg/actuati on breath activated aerosol 07/31 completed Not Available Not Available Not Available Flowflex COVID-19 Antigen Home Test kit REFER TO MANUFACTU DONATO INSTRUTIO NS INCLUDED ON PACKAGING 04/02 completed Not Available Not Available Not Available Vitals Date Recorded Body height Body mass index (BMI) Body weight Heart rate Body temperature Oxygen saturation Oxygen saturation in Arterial blood by Pulse oximetry Inhaled oxygen flow rate Systolic blood pressure Diastolic blood pressure Provider Name and Address Organization Details Last Updated DateTime 4 157.48 cm 40.1 kg/m2 62772.7 3 g 64 /min 97 [degF] 86 % 86 % 4 L/min 134 mm[Hg] 84 mm[Hg] Nicole Bergeron [facility] [employer] [facility] 4 11:26:47 Date Recorded Heart rate Provider Name an d Address Organization Details Last Updated DateTime 12/15/2024 60 /min Conrado Lundy MD [address] [facility], [facility] [address], [place], [address], [facility] [employer] [facility] 12/15/2024 10:36:13 Date Recorded Body height Body mass index (BMI) Body weight Body temperature Oxygen saturation Oxygen saturation in Arterial blood by Pulse oximetry Systolic blood pressure Diastolic blood pressure Provider Name and Address Organization Details Last Updated DateTime 5 153.67 cm 41.5 kg/m2 77554.9 5 g 97 [degF] 97 % 97 % 140 mm[Hg] 62 mm[Hg] [facility] [employer] [facility] 5 10:31:36 Date Recorded Body height Body mass index (BMI) Body weight Heart rate Body temperature Oxygen saturation Oxygen saturation in Arterial blood by Pulse oximetry Inhaled oxygen flow rate Systolic blood pressure Diastolic blood pressure Provider Name and Address Organization Details Last Updated DateTime 4 157.48 cm 41 kg/m2 761407. 69 g 56 /min 97.5 [degF] 98 % 98 % 4 L/min 118 mm[Hg] 70 mm[Hg] PEDRO Wynne [facility] [employer] [facility] 4 10:48:23 Date Recorded Body height Body mass index (BMI) Body weight Heart rate Body temperature Oxygen saturation Oxygen saturation in Arterial blood by Pulse oximetry Systolic blood pressure Diastolic blood pressure Provider Name and Address Organization Details Last Updated DateTime 5 153.67 cm 41 kg/m2 43845.9 7 g 62 /min 97 [degF] 95 % 95 % 122 mm[Hg] 60 mm[Hg] Nicoledarrion Bergeron [facility] [employer] [facility] 5 10:26:40 Date Recorded Body height Body weight Heart rate Body temperature Oxygen saturation Oxygen saturation in Arterial blood by Pulse oximetry Systolic blood pressure Diastolic blood pressure Provider Name and Address Organization Details Last Updated DateTime 4 157.48 cm 11010.1 7 g 58 /min 97 [degF] 98 % 98 % 130 mm[Hg] 72 mm[Hg] PEDRO Wynne [place] Jovana P[place] [employer] [facility] 4 10:53:18 Social History Question Answer Notes LastModified by Organizat ion Details LastModified Time Tobacco Smoking Status Former Smoker Not Available [facility] 01/23/2023 15:23:02 Do You Have An Advance Directive? Yes MIGRATION.[id number] Information not available 01/23/2023 Are You Blind Or Do You Have Difficulty Seeing? No MIGRATION.48907 47893 Information not available 01/23/2023 What Is Your Level Of Caffeine Consumption? Moderate Tea MIGRATION.96552 85998 Information not available 01/23/2023 Are You Deaf Or Do You Have Serious Difficulty Hearing? No MIGRATION.03420 10359 Information not available 01/23/2023 What Type Of Diet Are You Following? REGULAR MIGRATION.25041 04893 Information not available 01/23/2023 Have There Been Any Changes To Your Family Or Social Situation? No MIGRATION.13332 08857 Information not available 01/23/2023 What Is The Fluoride Status Of Your Home? Unknown MIGRATION.80715 18161 Information not available 01/23/2023 When Did You Quit Smoking? 16+yearssincelastc igarette MIGRATION.31735 59868 Information not available 01/23/2023 Are There Any Guns Present In Your Home? Yes MIGRATION.71183 59012 Information not available 01/23/2023 Do You Use Insect Repellent Routinely? Yes MIGRATION.71925 37208 Information not available 01/23/2023 [facility] MIGR[facility].65078 36874 Information not available 01/23/2023 Presence Of Domestic Violence No Information not available 04/02/2023 Guns Present In The Home? Yes Information not available 04/02/2023 Are You Able To Care For Yourself? Yes Information not available 04/02/2023 Are You Blind Or Do Yo Have Difficulty Seeing? No Information not available 04/02/2023 Are You Deaf Or Do You Have Serious Difficulty Hearing? No Information not available 04/02/2023 Live Alone Of With Others? Alone [email or web address] Information not available 04/14/2024 What Was The Date Of Your Most Recent Tobacco Screening? 04/14/2024 [email or web address] Information not available 04/14/2024 What Is Your Current Pack Years? 30ormorepackyears MIGRATION.55136 97574 Information not available 01/23/2023 Do You Have Any Pets? No [email or web address] Information not available 04/14/2024 Do You Use Your Seat Belt Or Car Seat Routinely? Yes MIGRATION.98870 51999 Information not available 01/23/2023 Do You Have Smoke And Carbon Monoxide Detectors In Your Home? Yes MIGRATION.13727 52980 Information not available 01/23/2023 At What Age Did You Start Smoking Tobacco? 20 MIGRATION.64732 76579 Information not available 01/23/2023 Are You Passively Exposed To Smoke? No MIGRATION.33892 72364 Information not available 01/23/2023 Are There Any Smokers In Your House? No MIGRATION.78866 05162 Information not available 01/23/2023 Do You Use Sunscreen Routinely? Yes Information not available 04/02/2023 Has Tobacco Cessation Counseling Been Provided? No N/A MIGRATION.14247 45852 Information not available 01/23/2023 How Many Years Have You Smoked Tobacco? 36 MIGRATION.63977 98512 Information not available 01/23/2023 Do You Have Difficulty Walking Or Climbing Stairs? Yes Uses A Rollator [email or web address] Information not available 04/14/2024 Do You Have Any Dietary Restrictions? No MIGRATION.31488 85203 Information not available 01/23/2023 Sex: Unknown Functional Status Question Answer Note LastModified by Organizat ion Details LastModified Time Do you use any illicit or recreational drugs? No MIGRATION.24516 44859 Information not available 01/23/2023 Do you or have you ever used any other forms of tobacco or nicotine? No MIGRATION.30607 94502 Information not available 01/23/2023 What is your level of alcohol consumption? Occasional MIGRATION.74553 17052 Information not available 01/23/2023 Do you have transportation difficulties? No MIGRATION.32308 70622 Information not available 01/23/2023 Are you able to walk? YESASSIST Patient is using walker today to help carry oxygen. MIGRATION.44993 30158 Information not available 01/23/2023 Do you have difficulty doing errands alone? No MIGRATION.89441 21753 Information not available 01/23/2023 Are you able to care for yourself? Yes MIGRATION.82503 34187 Information not available 01/23/2023 Do you have difficulty dressing or bathing? No MIGRATION.49287 40282 Information not available 01/23/2023 What is your exercise level? None [email or web address] Information not available 04/14/2024 Mental Status Question Answer Note LastModified by Organizat ion Details LastModified Time Do you feel stressed (tense, restless, nervous, or anxious, or unable to sleep at night)? [id number] MIGRATION.54689389 Information not available 01/23/2023 Do you have difficulty concentrating, remembering or making decisions? No MIGRATION.[id number] Information not available 01/23/2023 Family History Nothing Reported Notes:Mother 81 yea rs old Father 53 years old 3 Brothers 1 living two of COPD Mother Hx CHF, COPD Father Hx CVA, ASHD Brother Hx HTN (1) , Type II DM Medical History Condition Response NERVE DISEASE N BLINDNESS N RHEUMATIC FEVER N KIDNEY STONES N BLADDER PROBLEMS N MRSA N OTHER # 1 N POLIO N LUNG DISEASE/DISORDER N COPD N RADIATION / CHEMOTHERAPY N Other # 2 N BLOOD DISEASES N EAR OR HEARING PROBLEMS N MUMPS N BOWEL PROBLEMS N DEPRESSION (INCLUDING POST ) N STROKE/TIA N ULCERS N BENIGN PROSTATIC HYPERPLASIA N MEASLES N MYOCARDIAL INFARCTION N OBESITY N GERD/NAUSEA N ANEURYSM N URINARY/BLADDER/KIDNEY PROBLEMS N CORONARY ARTERY DISEASE (CAD) N ADDICTION CONCERNS N ENDOMETRIOSIS N Impotence N USE OF BLOOD THINNERS N SKIN PROBLEMS N GASTROINTESTINAL DISORDER N PERIPHERAL VASCULAR DISEASE N MUSCLE,JOINT OR BONE PROBLEMS N GASTROINTESTINAL BLEEDING N BLOOD CLOTS N ASTHMA N CATARACTS N ERECTILE DYSFUNCTION N VARICOSITIES N GI PROBLEMS N Low Testosterone N INFERTILITY N AIDS/HIV N CHEMOTHERAPY / RADIATION N LIVER DISEASE N MALE HYPOGONADISM N HYPERTENSION Y Deficiency N TOURETTE'S N ANXIETY DISORDER N BLOOD TRANSFUSION N ANEMIA/BLOOD DISORDER N CHRONIC EAR INFECTIONS N BRONCHITIS N TUBERCULOSIS N GLAUCOMA N FOOT PROBLEM N DIVERTICULITIS N SLEEP APNEA Y CHICKENPOX N INFECTIOUS DISEASE N HEART ARRHYTHMIA N PROSTATE N INSOMNIA N HIGH CHOLESTEROL / HYPERLIPIDEMIA Y HYPERTHYROIDISM N EYE PROBLEMS N EDEMA N CHRONIC PAIN SYNDROME N HYPOTHYROIDISM Y CAROTID BLOCKAGE N CONSTIPATION N BACK / NECK PROBLEMS N HAVE YOU BEEN HOSPITALIZED OR SEEN IN PSYCHIATRIC IN THE PAST YEAR ? N ATHEROSCLEROSIS N BREAST PROBLEMS N DIALYSIS N ECZEMA N OSTEOPOROSIS N ARTHRITIS N NO SIGNIFICANT PAST MEDICAL HISTORY N APPENDICITIS N DIABETES, TYPE N BAD TEETH N ENT N HEARTBURN / REFLUX N AUTISM SPECTRUM DISORDER (ASD) N HEPATITIS / LIVER DISEASE N GOUT N SLEEP DISORDER N ALZHEIMER'S DISEASE N Brain Problems N HERPES N DEMENTIA N HEADACHES/MIGRAINES N SEIZURES/EPILEPSY N VASCULAR DISEASE N PACEMAKER N Blood Disorder N DIZZINESS N HEART DISEASE/HEART PROBLEMS N KIDNEY DISEASE N MULTIPLE SCLEROSIS N CARDIAC ARRHYTHMIA N CANCER: SPECIFY N ATRIAL FIBRILLATION N Gall Stones N PULMONARY EMBOLISM N AUTOIMMUNE DISEASE N Gynecological History Statement/Question Response Date of Last Pap Date of Last Mammogram 07/05/2020 Date of Last Colonoscopy 11/20/2017 Most Recent Bone Density 06/10/2020 Obstetrics History GPAL:G 0 P 0 0 0 0 Immunizations Vaccine Type Date Status Note Provider Nam e and Address Organization Details Recorded Time SARS-COV-2 (COVID-19) vaccine, UNSPECIFIED 3 completed LILIANE Banks, [facility] 09/11/2023 13:18:11 influenza, unspecified formulation 3 completed LILIANE Banks, [facility] [employer] [facility] 09/11/2023 13:18:24 Respiratory syncytial virus (RSV) MAB, unspecified 3 completed LILIANE Banks, [facility] [facility] 09/11/2023 13:18:37 influenza, unspecified formulation 4 completed Nicole samuel, [place] [employer] [employer] [facility] 01/12/2025 15:57:53 Pneumococcal conjugate PCV 13 4 completed Not Available [facility] 01/23/2023 15:28:33 SARS-COV-2 (COVID-19) vaccine, UNSPECIFIED 1 completed Not Available [facility] 01/23/2023 15:28:34 SARS-COV-2 (COVID-19) vaccine, UNSPECIFIED 1 completed Not Available [facility] 01/23/2023 15:28:34 Influenza, adjuvanted, trivalent, PF 9 completed Not Available [facility] 01/23/2023 15:28:34 COVID-19, mRNA, LNP-S, bivalent, PF, 50 mcg/0.5 mL or 25mcg/0.25 mL dose 2 completed Not Available [facility] 01/23/2023 15:28:34 influenza, unspecified formulation 2 completed Not Available [facility] 01/23/2023 15:28:34 COVID-19, mRNA, LNP-S, PF, 100 mcg/0.5mL dose or 50 mcg/0.25mL dose 1 completed Not Available [facility] 01/23/2023 15:28:34 DTaP 9 completed Not Available [facility] 01/23/2023 15:28:34 Influenza, split virus, trivalent, preservative 3 completed Not Available [facility] 01/23/2023 15:28:34 Influenza, high-dose, quadrivalent, PF 1 completed Not Available [facility] 01/23/2023 15:28:34 Influenza, high-dose, trivalent, PF 8 completed Not Available [facility] 01/23/2023 15:28:34 Influenza, high-dose, trivalent, PF 7 completed Not Available [facility] 01/23/2023 15:28:34 Influenza, split virus, quadrivalent, PF 6 completed Not Available [facility] 01/23/2023 15:28:34 pneumococcal polysaccharide PPV23 7 completed Not Available [facility] 01/23/2023 15:28:35 Pneumococcal conjugate PCV 13 5 completed Not Available [facility] 01/23/2023 15:28:35 Influenza, split virus, quadrivalent, preservative 5 completed Not Available [facility] 01/23/2023 15:28:35 Influenza, high-dose, trivalent, PF 4 completed Not Available [facility] 01/23/2023 15:28:35 Pneumococcal conjugate PCV20, polysaccharide KPA725 conjugate, adjuvant, PF 5 completed NEGRO Ramirez [place] [employer] [facility] 12/15/2024 10:48:24 Past Encounters Encounter ID Performer Location Encounter Start Date Encounter Closed Date Diagnosis/Indication Diagnosis SNOMED-CT Code Diagnosis ICD10 Code Diagnosis Note [id number] Conrado Lundy MD [facility] [place] [address] [place] [address] y , [place] [address] 06/06/2021 00:00:00 06/06/2021 11:08:32 [id number] Conrado Lundy MD [facility] [place] [address] [place] [address] y , [place] [address] 09/15/2021 00:00:00 09/15/2021 11:05:26 [id number] Conrado Lundy MD [facility] Internal [facility] [place] [address] [place] [address] y , [place] [address] 12/05/2021 00:00:00 12/05/2021 10:41:38 [id number] Conrado Lundy MD [facility] [place] [address] [place] [address] y , [place] [address] 03/27/2022 00:00:00 03/27/2022 11:06:46 [id number] Conrado Lundy MD [facility] [place] [address] [place] [address] y , [place] [address] 07/31/2022 00:00:00 07/31/2022 11:36:52 [id number] Conrado Lundy MD [facility] Internal [facility] [place] [address] [place] [address] y , [place] [address] 11/27/2022 00:00:00 11/27/2022 11:44:58 [id number] Conrado Lundy MD [facility] [place] [address] [place] [address] y , [place] [address] 04/02/2023 10:48:34 04/02/2023 11:24:44 Adult health examination 794101782 Z00.00 Screening for disorder 637165379 Z13.9 Essential hypertension 42075325 I10 Hypothyroidism 71494879 E03.9 Pure hypercholesterolemia 937331230 E78.00 Chronic ob structive pulmonary disease 66749173 J44.9 Obese class II 100899682 1 38545 E66.9 [id number] Conrado Lundy MD [facility] Internal [facility] Johnna murillo [address] [place] [address] [address] 08/06/2023 10:51:08 08/06/2023 11:15:06 Essential hypertension 58424614 I10 Pure hypercholesterolemia 400788921 E78.00 Hypothyroidism 28227552 E03.9 Obese class II 580623588 1 70332 E66.9 Chronic ob structive pulmonary disease 36119435 J44.9 Vitamin D deficiency 347 61049 E55.9 [id number] Conrado Lundy MD [facility] Internal [facility] Johnna murillo [address] [place] [address] [address] 12/10/2023 10:47:18 12/10/2023 11:54:26 Essential hypertension 25328601 I10 Pure hypercholesterolemia 566126115 E78.00 Chronic ob structive pulmonary disease 69421887 J44.9 Hypothyroidism 66814954 E03.9 Obstructiv e sleep apnea syndrome 80251280 G47.33 Obese class III 31395441 5 E66.01 [id number] Conrado Lundy MD [facility] Internal [facility] Johnna murillo [address] [place] [address] [place] [address] 04/14/2024 10:38:55 04/14/2024 11:17:33 Adult health examination 686846433 Z00.00 Screening for disorder 151864061 Z13.9 Chronic ob structive pulmonary disease 44616715 J44.9 Essential hypertension 49883527 I10 Pure hypercholesterolemia 735161792 E78.00 Hypothyroidism 27612803 E03.9 Obese class III 34043375 5 E66.01 [id number] Conrado Lundy MD [facility] Internal [facility] Johnna murillo [address] [place] [address] [place] [address] 08/18/2024 10:46:25 08/18/2024 11:42:39 Essential hypertension 92408727 I10 Hypothyroidism 29634507 E03.9 Pure hypercholesterolemia 364413559 E78.00 Chronic ob structive pulmonary disease 15235019 J44.9 Obese class II 847442736 1 02245 E66.9 [id number] Conrado Lundy MD [facility] Primary Care [facility] [address] [facility] [facility] [place] [address] 12/15/2024 10:11:31 12/15/2024 12:07:56 Chronic obstructive pulmonary disease 78845964 J44.9 Essential hypertension 03529737 I10 Hypothyroidism 93449870 E03.9 Pure hypercholesterolemia 483490694 E78.00 Obese class III 08576248 5 E66.01 Vitamin D deficiency 347 54648 E55.9 [id number] Conrado Lundy MD [facility] Internal Med [facility] [address] [facility] [place] [address] 04/20/2025 10:25:25 04/20/2025 11:00:49 General examination of patient 923419993 Z00.00 Chronic ob structive pulmonary disease 36983619 J44.9 Essential hypertension 63790607 I10 Hypothyroidism 57340868 E03.9 Obese class III 27824867 5 E66.01 Pure hypercholesterolemia 797379766 E78.00 Health Concerns Section Related Observation LastModified by Organization Detai ls LastModified Time None Recorded Concern Status LastModified by Organization Details LastModified Time None Recorded Advance Directives Directive Y: Payers Encounter Date Sequence Insurance Name Policy Number Policy Lundy Covered Member ID Lundy Member ID Guarantor Name 12/10/2023 1 [facility] (MEDICARE REPLACEMENT/A DVANTAGE - PPO) [id number] Kulwant Raineys [id number] Kulwant Raineys 04/14/2024 1 [facility] (MEDICARE REPLACEMENT/A DVANTAGE - PPO) [id number] Kulwant Raineys [id number] Kulwant Raineys 08/18/2024 1 [facility] (MEDICARE REPLACEMENT/A DVANTAGE - PPO) [id number] Kulwant Raineys [id number] Kulwant Raineys 12/15/2024 1 [facility] (MEDICARE REPLACEMENT/A DVANTAGE - PPO) [id number] Kulwant Raineys [id number] Kulwant Raineys 04/20/2025 1 [facility] (MEDICARE REPLACEMENT/A DVANTAGE - PPO) [id number] Kulwant Funes [id number] Kulwant Funes Notes Date Note Type Note Provider Name and Address Organization Details Recorded Time 12/10/19 24 text/htm l Patient Name: Kulwant Alanizate Of Service: Saturday ( 12.10.2023 ): 1945 Age: 78 There has been approximately a 1 lb weight gain since 08/06/2023. This represents approximately a .5% change in weight. Weight change attributable to lifestyle changes. Vital Signs:Blood Pressure: Sitting Rt. Arm 134/84Pulse: Sitting 64 /min and RegularRespiratory Rate: 12Height 62 in or 1.6 mWeight 219 lb or 99.3 kgBMI 40.1Temperature: 97 F or 36.1 CPulse Oximetry: 86 % at rest on oxygen Chief Complaint: Addressed in HPI Problems or conditions discussed in the HPI were the only ones reviewed during the encounter.Only social and family history addressed in the HPI were reviewed during this encounter. Attendant(s): NoneConstitutional and Systemic Symptoms:none Medication Reconciliation: from medication list. Jzrcixzhtov50/27/2023: Low-dose CT scan the chest negative for any signs of malignancy. Repeat in one year 07/02/2023: Bone density scan negative shows normal bone density. Repeat in two years History of Present Illness #1. Essential Hypertension: Stage: Stage I Interval Neurological Complaints no headaches, dizziness, weakness, visual changes, ataxia, aphasia and apraxia. No shortness of breath, orthopnea or cardiovascular symptoms. No other symptoms related to end organ damage. Pressure has been under excellent control. Currently normal. No other end organ symptoms or findings. Therapy reviewed regarding management of hypertension and includes salt restriction and Coreg, Lasix, Lisinopril and Norvasc. #2. Type II Hypercholesterolaemia: Currently not taking medication. No interval complaints of any muscle pain or arthralgia. No significant liver changes with medications. Last lipid panel: no testing since starting on medication. Therapy reviewed regarding treatment of cholesterol management and include diet and Zocor. #3. Hx of hypothyroidism currently stable. Heat intolerance: no Fatigue: no Weight gain: no Difficulty concentrating: no Muscle Symptoms: none Skin Texture: normal Skin Color: normal Currently taking synthroid. #4. COPD: Hx of Emphysema currently stable. There has been no interval change in exercise tolerance an shortness of breath. No change in sputum production, color or consistency. No fever, chills, weight loss or other constitutional symptoms. Gold Scale: Severe. MRC Scale: SOB with changing cloths. Smoking: not currently smoking Current medications: Proair Hfa and Trelegy Ellipta Using nebulizer Treatments: No. Uses supplemental oxygen #5. Sleep Apnea: Type: RAFAEL Current doing well. No significant daytime somnolence or problems performing daily chores. Using CPAP on nightly basis . Overall has shown considerable improvement.[place] Sleepiness ScaleSitting and ReadinWatching TV: 1Sitting Inactive in a Public Place: 2Passenger in a Car: 2Lying Down in Afternoon: 1Sitting and Talking to someone: 1Sitting quietly after lunch: 1In a car while stopped or drivinScore Interpretation: 8-9 Average amount of daytime sleepiness #6. Hx of obesity. Currently Class 3 Obesity [place] > 40. Has tried numerous dietary support and supplements with no benefit. Instructed on the health consequences of the obese status particularly cancer - diabetes and heart disease. Discussed new modalities of weight loss including GLP-1 medications that are used to treat diabetes. Potential candidate for bariatric surgery: No. Wishes to be evaluated by Dietary: No and was offered to be evaluated and instructed by manager call center on weight loss diet. Active Medication List 12/10/2023Lisinopril 40 MG (TABLET - ORAL) Once DailyProzac 20 MG (CAPSULE - ORAL) Once DailyOxygen 2 Liters As NeededAspirin 81 MG One DailyLasix 40 MG (TABLET - ORAL) One Twice A DaySynthroid 0.125 MG (TABLET - ORAL) One Daily For ThyroidMultivitamin One DailyZocor 20 MG (TABLET - ORAL) One DailyCoreg 25 MG (TABLET - ORAL) One BidNorvasc 2.5 MG (TABLET - ORAL) One DailyTrelegy Ellipta DailyProair Hfa 0.09 MG /INH (AEROSOL, METERED - INHALATION) Two Puffs Qid PrnCpap As Directed Vaccination and Qmylaylamnij1238-23 Kcrqpushv6089-06 Covid Booster Uokcdfh6494-60 Covid Djuoysm9433-34 Uqvdgspbh5745-19 Prevnar 574501-28 Zostavax (shingles) Surgical Rzdpvai4578-78 Lt. Tbisjgmi3782-31 Rt. Ydjgdlau7262-62 Vaginal Hysterectomy Preventative Testing Confirmed by Our Xuibscw0308/26/2023 ALBUMIN 4.5 G/DL N007/02/2023 DEXA SCAN01/21/2023 LDCT / MAMMOGRAM /05/[address]UCTMQS26/16/2019 [address] ZVDOFE0111/20/2017 COLONOSCOPY (10 YEARS) 11/20/2027 Social HistorySmoking Hx: 2 packs of cigarettes per day for 25 years and quit back in 2004.Drinking Hx: Two Pots of coffee per day, < 6 cans of soft drinks per day.Exercise: InfrequentlySexual Hx: Sexually Active Family HistoryMother 81 years oldFather 53 years old3 Brothers 1 living two of COPDMother Hx: CHF, COPDFather Hx: CVA, ASHDBrother Hx: HTN (1) , Type II DM Conrado Lundy MD [address] [facility] [address], [place], [address], [facility] [employer] 12/10/2023 11:48:04 04/14/20 24 text/htm l Patient Name: Kulwant Coates Of Service: Saturday ( 04.14.2024 ): 1945 Age: 78 There has been approximately a 5 lb weight gain since 12/10/2023. This represents approximately a 2.3% change in weight. Weight change attributable to lifestyle changes. Vital Signs:Blood Pressure: Sitting Rt. Arm 118/70Pulse: Sitting 56 /min and RegularRespiratory Rate: 12Height 62 in or 1.6 mWeight 224 lb or 101.6 kgBMI 41.0Temperature: 97.5 F or 36.4 CPulse Oximetry: 98 % at rest on no oxygen Chief Complaint: Addressed in HPI Problems or conditions discussed in the HPI were the only ones reviewed during the encounter.Only social and family history addressed in the HPI were reviewed during this encounter. A significant, separate E/M service was performed to evaluate the current and new problems. Attendant(s): NoneConstitutional and Systemic Symptoms:none Medication Reconciliation: from medication list. Anaxibcyqlb63/27/2023: Low-dose CT scan the chest negative for any signs of malignancy. Repeat in one year 07/02/2023: Bone density scan negative shows normal bone density. Repeat in two years History of Present Illness Reviewed the findings of the preventative health visit. Addressed all areas with the patient, patient's family or caregivers. Preventative examinations and testing immunizations - vaccinations, colonic neoplasm screening, mammograms, LDCT thorax and DEXA Scan all reviewed and ordered where patient was amenable to the recommendations. Cognitive function was normal. Depression addressed and where necessary medications were adjusted or instituted. End of life and living will briefly discussed with patient and where these can be filled out and legally executed. Other blood and imaging studies were ordered if considered necessary. Other recommendations may be found in the encounter note. #1. COPD: Hx of Emphysema currently stable. There has been no interval change in exercise tolerance an shortness of breath. No change in sputum production, color or consistency. No fever, chills, weight loss or other constitutional symptoms. Gold Scale: Severe. MRC Scale: after a few minutes of walking. Smoking: not currently smoking Current medications: Oxygen, Proair Hfa and Trelegy Ellipta Using nebulizer Treatments: No. Uses does not use supplemental oxygen #2. Essential Hypertension: Stage: Stage I Interval Neurological Complaints no headaches, dizziness, weakness, visual changes, ataxia, aphasia and apraxia. No shortness of breath, orthopnea or cardiovascular symptoms. No other symptoms related to end organ damage. Pressure has been under excellent control. Currently normal. No other end organ symptoms or findings. Therapy reviewed regarding management of hypertension and includes salt restriction and Coreg, Lisinopril and Norvasc. #3. Type II Hypercholesterolaemia: Currently taking medication and tolerating well. No interval complaints of any muscle pain or arthralgia. No significant liver changes with medications. Last lipid panel: fair control. Therapy reviewed regarding treatment of cholesterol management and include diet and Zocor. #4. Hx of hypothyroidism currently stable. Heat intolerance: no Fatigue: no Weight gain: no Difficulty concentrating: no Muscle Symptoms: none Skin Texture: normal Skin Color: normal Currently taking synthroid. #5. Hx of obesity. Currently Class 3 Obesity [place] > 40. Has tried numerous dietary support and supplements with no benefit. Instructed on the health consequences of the obese status particularly cancer - diabetes and heart disease. Discussed new modalities of weight loss including GLP-1 medications that are used to treat diabetes. Potential candidate for bariatric surgery: No. Wishes to be evaluated by Dietary: No and was offered to be evaluated and instructed by manager call center on weight loss diet. Active Medication ListLisinopril 40 MG (TABLET - ORAL) Once DailyProzac 20 MG (CAPSULE - ORAL) Once DailyOxygen 4 Liters As NeededAspirin 81 MG One DailyLasix 40 MG (TABLET - ORAL) One Twice A DaySynthroid 0.125 MG (TABLET - ORAL) One Daily For ThyroidMultivitamin One DailyZocor 20 MG (TABLET - ORAL) One DailyCoreg 25 MG (TABLET - ORAL) One BidNorvasc 2.5 MG (TABLET - ORAL) One DailyTrelegy Ellipta DailyProair Hfa 0.09 MG /INH (AEROSOL, METERED - INHALATION) Two Puffs Qid PrnCpap As Directed Vaccination and Jutotswtpqbq9261-74 Zyjcekipo6858-87 Covid Booster Ekofmnn8995-54 Covid Ptobntg1953-07 Kgvditnhg9068-75 Prevnar [id number] Zostavax (shingles) Surgical Nbmedyp6872-17 Lt. Ozzaggws6515-83 Rt. Jxxumekz5405-97 Vaginal Hysterectomy Preventative Ivdeobs0703/09/2024 COAPCWPVQ79/09/2024 LDCT 5001/02/2024 ALBUMIN 4.5 G/DL07/02/2023 DEXA SCAN06/14/2022 MAMMOGRAM 303/05/2022 [address]QLOGNGLC61/16/2019 CT UWJUVF9911/20/2017 COLONOSCOPY (10 YEARS) 11/20/2027 Social HistorySmoking Hx: 2 packs of cigarettes per day for 25 years and quit back in 2004.Drinking Hx: Two Pots of coffee per day, < 6 cans of soft drinks per day.Exercise: InfrequentlySexual Hx: Sexually Active Family HistoryMother 81 years oldFather 53 years old3 Brothers 1 living two of COPDMother Hx: CHF, COPDFather Hx: CVA, ASHDBrother Hx: HTN (1) , Type II DM Conrado Lundy MD [address] [facility], [facility] [address], [place], [address], [facility] [employer] [facility] 04/14/2024 11:07:17 08/18/20 24 text/htm l Patient Name: Kulwant Coates Of Service: Saturday ( 08.18.2024 ): 1945 Age: 78 There has been approximately a 11 lb weight loss since 04/14/2024. This represents approximately a 4.9% change in weight. Weight change attributable to lifestyle changes. Vital Signs:Blood Pressure: Sitting Rt. Arm 130/72Pulse: Sitting 58 /min and RegularRespiratory Rate: 20Height 62 in or 1.6 mWeight 213 lb or 96.6 kgBMI 39.0Temperature: 97 F or 36.1 CPulse Oximetry: 98 % at rest on no oxygen Chief Complaint: Addressed in HPI Problems or conditions discussed in the HPI were the only ones reviewed during the encounter.Only social and family history addressed in the HPI were reviewed during this encounter. Attendant(s): NoneConstitutional and Systemic Symptoms:none Medication Reconciliation: from medication list. Ffkzcioravc08/27/2023: Low-dose CT scan the chest negative for any signs of malignancy. Repeat in one year 07/02/2023: Bone density scan negative shows normal bone density. Repeat in two years 07-17-2024: echocardiogram estimated ejection fraction 60-65% left ventricular systolic function is normal. Left ventricular diastolic function is abnormal. Mild aortic regurgitation. There is mild mitral valve regurgitation. There is mild tricuspid regurgitation. Mild pulmonary hypertension with estimated systolic pulmonary pressure 47 mmHg. There is trace pulmonic [id number]: CT pulmonary angiogram negative for pulmonary embolism. No acute cardiopulmonary pathology. Prominent main pulmonary artery suggestive of pulmonary obwwitseuqih21-63-2055: Venous Doppler negative for DVT History of Present Illness #1. Essential Hypertension: Stage: Stage I Interval Neurological Complaints no headaches, dizziness, weakness, visual changes, ataxia, aphasia and apraxia. No shortness of breath, orthopnea or cardiovascular symptoms. No other symptoms related to end organ damage. Pressure has been under excellent control. Currently normal. No other end organ symptoms or findings. Therapy reviewed regarding management of hypertension and includes salt restriction and Coreg, Lisinopril and Norvasc. #2. Type II Hypercholesterolaemia: Currently taking medication and tolerating well. No interval complaints of any muscle pain or arthralgia. No significant liver changes with medications. Last lipid panel: fair control. Therapy reviewed regarding treatment of cholesterol management and include diet and Zocor. #3. Hx of hypothyroidism currently stable. Heat intolerance: no Fatigue: no Weight gain: no Difficulty concentrating: no Muscle Symptoms: none Skin Texture: normal Skin Color: normal Currently taking synthroid. #4. COPD: Hx of Emphysema currently stable. There has been no interval change in exercise tolerance an shortness of breath. No change in sputum production, color or consistency. No fever, chills, weight loss or other constitutional symptoms. Gold Scale: Very Severe. MRC Scale: SOB with changing cloths. Smoking: not currently smoking Current medications: Cpap, Oxygen, Proair Hfa and Trelegy Ellipta Using nebulizer Treatments: Yes with bronchodilators QID with improvement in symptomatology. Uses supplemental oxygen #5. Hx of obesity. Currently Class 2 Obesity BMI 35-39.99. Has tried numerous dietary support and supplements with no benefit. Instructed on the health consequences of the obese status particularly cancer - diabetes and heart disease. Discussed other modalities of weight loss no . Potential candidate for bariatric surgery: No. Wishes to be evaluated by Dietary: No and was offered to be evaluated and instructed by manager call center on weight loss diet. Active Medication ListLisinopril 40 MG (TABLET - ORAL) Once DailyProzac 20 MG (CAPSULE - ORAL) Once DailyOxygen 6 Rest, 8 Active. 10 SleepAspirin 81 MG One DailyLasix 40 MG (TABLET - ORAL) One Twice A DaySynthroid 150 UG TABLET One Daily For ThyroidMultivitamin One DailyZocor 20 MG (TABLET - ORAL) One DailyCoreg 25 MG (TABLET - ORAL) One BidNorvasc 2.5 MG (TABLET - ORAL) One DailyTrelegy Ellipta DailyProair Hfa 0.09 MG /INH (AEROSOL, METERED - INHALATION) Two Puffs Qid PrnCpap As Directed Vaccination and Josuyqkaocmg4128-98 Ecloevcik7478-27 Covid Booster Wcfagar1131-87 Covid Faxhlgt0344-86 Lduzciukd9261-77 Prevnar [id number] Zostavax (shingles) Surgical Pjhjnkl9751-55 Lt. Xvovlulb3260-88 Rt. Forhbfzz4533-06 Vaginal Hysterectomy Preventative Testing( ) 06/01/2024 Optometry( ) 05/06/2024 Albumin 4.3 G/DL( ) 01/03/2024 LDCT 01/03/2025( ) 07/02/2023 DEXA Scan 07/02/2025(X) 06/14/2022 Mammogram 06/14/2024( ) 01/29/2022 Ophthalmology( ) 07/10/2019 CT Thorax( ) 11/20/2017 Colonoscopy (10 Years) 11/20/2027 Social HistorySmoking Hx: 2 packs of cigarettes per day for 25 years and quit back in 2004.Drinking Hx: Two Pots of coffee per day, < 6 cans of soft drinks per day.Exercise: InfrequentlySexual Hx: Sexually Active Family HistoryMother 81 years oldFather 53 years old3 Brothers 1 living two of COPDMother Hx: CHF, COPDFather Hx: CVA, ASHDBrother Hx: HTN (1) , Type II DM Conrado Lundy MD [address] [facility] [facility], [facility] [address], [place], [address], [facility] [employer] 08/18/2024 11:35:47 12/15/19 25 text/htm l Patient Name: Kulwant Coates Of Service: Saturday ( 12.15.2024 ): 1945 Age: 79 There has been approximately a 3 lb weight gain since 08/18/2024. This represents approximately a 1.4% change in weight. Weight change attributable to lifestyle changes. Vital Signs:Blood Pressure: Sitting Rt. Arm 140/62Pulse: Sitting 60 /min and RegularRespiratory Rate: 22Height 60.5 in or 1.5 mWeight 216 lb or 98.0 kgBMI 41.5Temperature: 97 F or 36.1 CPulse Oximetry: 97 % at rest on no oxygen Chief Complaint: Addressed in HPI Problems or conditions discussed in the HPI were the only ones reviewed during the encounter.Only social and family history addressed in the HPI were reviewed during this encounter. Attendant(s): NoneConstitutional and Systemic Symptoms:none Medication Reconciliation: from medication list. Jubgzcijhcv68/27/2023: Low-dose CT scan the chest negative for any signs of malignancy. Repeat in one year 07/02/2023: Bone density scan negative shows normal bone density. Repeat in two years 07-17-2024: echocardiogram estimated ejection fraction 60-65% left ventricular systolic function is normal. Left ventricular diastolic function is abnormal. Mild aortic regurgitation. There is mild mitral valve regurgitation. There is mild tricuspid regurgitation. Mild pulmonary hypertension with estimated systolic pulmonary pressure 47 mmHg. There is trace pulmonic qhgewfvrrtbox22-63-1041: CT pulmonary angiogram negative for pulmonary embolism. No acute cardiopulmonary pathology. Prominent main pulmonary artery suggestive of pulmonary [id number]: Venous Doppler negative for DVT 12-09-2024: PFTS demonstrates severe obstructive pulmonary disease without significant response to any bronchodilators.12-09-2024: 6 minute walk demonstrated saturations of at least 89% on 8 L of oxygen. Distance walked is less than expected for her age. History of Present Illness #1. COPD: Hx of Emphysema currently stable. There has been no interval change in exercise tolerance an shortness of breath. No change in sputum production, color or consistency. No fever, chills, weight loss or other constitutional symptoms. Gold Scale: Very Severe. MRC Scale: SOB with changing cloths. Smoking: not currently smoking Current medications: Proair Hfa and Trelegy Ellipta but according to PFT's has very little response to bronchodilators Using nebulizer Treatments: No. Uses does not use supplemental oxygen #2. Essential Hypertension: Stage: Stage I Interval Neurological Complaints no headaches, dizziness, weakness, visual changes, ataxia, aphasia and apraxia. No shortness of breath, orthopnea or cardiovascular symptoms. No other symptoms related to end organ damage. Pressure has been under excellent control. Currently normal. No other end organ symptoms or findings. Therapy reviewed regarding management of hypertension and includes salt restriction and Coreg, Lisinopril and Norvasc. #3. Type II Hypercholesterolaemia: Currently taking medication and tolerating well. No interval complaints of any muscle pain or arthralgia. No significant liver changes with medications. Last lipid panel: fair control. Therapy reviewed regarding treatment of cholesterol management and include diet and Zocor. #4. Hx of hypothyroidism currently stable. Heat intolerance: no Fatigue: no Weight gain: no Difficulty concentrating: no Muscle Symptoms: none Skin Texture: dry Skin Color: unchanged Currently taking synthroid. #5. Hx of obesity. Currently Class 3 Obesity [place] > 40. Has tried numerous dietary support and supplements with no benefit. Instructed on the health consequences of the obese status particularly cancer - diabetes and heart disease. Discussed other modalities of weight loss no . Potential candidate for bariatric surgery: No. Wishes to be evaluated by Dietary: No and was offered to be evaluated and instructed by manager call center on weight loss diet. Active Medication ListLisinopril 40 MG (TABLET - ORAL) Once DailyProzac 20 MG (CAPSULE - ORAL) Once DailyOxygen 6 Rest, 8 Active. 10 SleepAspirin 81 MG One DailyLasix 40 MG (TABLET - ORAL) One Twice A DaySynthroid 150 UG TABLET One Daily For ThyroidMultivitamin One DailyZocor 20 MG (TABLET - ORAL) One DailyCoreg 25 MG (TABLET - ORAL) One BidNorvasc 2.5 MG (TABLET - ORAL) One DailyTrelegy Ellipta DailyProair Hfa 0.09 MG /INH (AEROSOL, METERED - INHALATION) Two Puffs Qid PrnCpap As Directed Vaccination and Immunization( ) 2023- INFLUENZA( ) 2012-07 ZOSTAVAX (SHINGLES)( ) 2018-12 TDAP( ) 2015-09 PREVNAR 13( ) 2017-09 PNEUMOVAX(X) 2022- COVID MODERNA(X) 2022- COVID BOOSTER MODERNA( ) 2022- RSV( ) 2024- PREVNAR 20 Surgical Tdnlxxs6899-50 Lt. Imxcrsya7650-41 Rt. Vlqomftm3549-75 Vaginal Hysterectomy Preventative Testing( ) 11/09/2024 Ophthalmology( ) 08/24/2024 Optometry( ) 05/06/2024 Albumin 4.3 G/DL( ) 01/03/2024 LDCT 01/03/2025( ) 07/02/2023 DEXA Scan 07/02/2025(X) 06/14/2022 Mammogram 06/14/2024( ) 07/10/2019 CT Thorax( ) 11/20/2017 Colonoscopy (10 Years) 11/20/2027 Social HistorySmoking Hx: 2 packs of cigarettes per day for 25 years and quit back in 2004.Drinking Hx: Two Pots of coffee per day, < 6 cans of soft drinks per day.Exercise: InfrequentlySexual Hx: Sexually Active Family HistoryMother 81 years oldFather 53 years old3 Brothers 1 living two of COPDMother Hx: CHF, COPDFather Hx: CVA, ASHDBrother Hx: HTN (1) , Type II DM TEST RESULT RANGE UNITSLIPID PANEL Date: 4CHOLESTEROL, TOTAL 162 100-199 MG/DLTRIGLYCERIDES 122 0-149 MG/DLHDL CHOLESTEROL 52 >39 MG/DLLDL CHOL CALC (NIH) 88 0-99 MG/DLCOMP. METABOLIC PANEL (14) Date: 05/06/2024SODIUM 146 134-144 MMOL/LPOTASSIUM 4.4 3.5-5.2 MMOL/LGLUCOSE 102 70-99 MG/DLBUN 21 8-27 MG/DLCREATININE 1.12 0.57-1.00 MG/DLEGFR 51 >59 ML/MIN/1.73ALKALINE PHOSPHATASE 107 44-121 IU/LAST (SGOT) 19 0-40 IU/LALT (SGPT) 15 0-32 IU/LT4, FREE Date: 05/06/2024T4,FREE(DIRECT) 1.05 0.82-1.77 NG/DLTSH Date: 05/06/2024TSH 13.000 0.450-4.500 UIU/ML Conrado Lundy MD [address] [facility], [facility] [address], [place], [address], [facility] 12/15/2024 10:42:11 04/20/20 25 text/htm l [facility] Of Service: Saturday ( 04.20.2025 ): 1945 Age: 79 There has been approximately a 2.5 lb weight loss since 12/15/2024. This represents approximately a 1.2% change in weight. Weight change attributable to lifestyle changes. Vital Signs:Blood Pressure: Sitting Rt. Arm 122/60Pulse: Sitting 62 /min and RegularRespiratory Rate: 20Height 60.5 in or 1.5 mWeight 213.5 lb or 96.8 kgBMI 41.0Temperature: 97 F or 36.1 CPulse Oximetry: 95 % at rest on oxygen Chief Complaint: Addressed in HPI Problems or conditions discussed in the HPI were the only ones reviewed during the encounter.Only social and family history addressed in the HPI were reviewed during this encounter. A significant, separate E/M service was performed to evaluate the current and new problems. Attendant(s): NoneConstitutional and Systemic Symptoms:none Medication Reconciliation: from medication list. Tzdmtdvxdmd69/08/2023: Bone density scan negative shows normal bone density. Repeat in two years 07-17-2024: echocardiogram estimated ejection fraction 60-65% left ventricular systolic function is normal. Left ventricular diastolic function is abnormal. Mild aortic regurgitation. There is mild mitral valve regurgitation. There is mild tricuspid regurgitation. Mild pulmonary hypertension with estimated systolic pulmonary pressure 47 mmHg. There is trace pulmonic [id number]: CT pulmonary angiogram negative for pulmonary embolism. No acute cardiopulmonary pathology. Prominent main pulmonary artery suggestive of pulmonary [id number]: Venous Doppler negative for DVT 12-09-2024: PFTS demonstrates severe obstructive pulmonary disease without significant response to any bronchodilators.12-09-2024: 6 minute walk demonstrated saturations of at least 89% on 8 L of oxygen. Distance walked is less than expected for her age. History of Present Illness Reviewed the findings of the preventative health visit. Addressed all areas with the patient, patient's family or caregivers. Preventative examinations and testing immunizations - vaccinations, mammograms and LDCT thorax all reviewed and ordered where patient was amenable to the recommendations. Cognitive function see HPI but demonstrated no overall change in cognitive status . Depression addressed and where necessary medications were adjusted or instituted. End of life and living will briefly discussed with patient and where these can be filled out and legally executed. Other blood and imaging studies were ordered if considered necessary. Other recommendations may be found in the encounter note. #1. COPD: Hx of Emphysema currently stable. There has been some decrease in exercise tolerance an shortness of breath. No change in sputum production, color or consistency. No fever, chills, weight loss or other constitutional symptoms. Gold Scale: Severe. MRC Scale: normal walking. Smoking: not currently smoking Current medications: Oxygen, Proair Hfa and Trelegy Ellipta Using nebulizer Treatments: No. Uses supplemental oxygen #2. Essential Hypertension: Stage: Stage I Interval Neurological Complaints no headaches, dizziness, weakness, visual changes, ataxia, aphasia and apraxia. No shortness of breath, orthopnea or cardiovascular symptoms. No other symptoms related to end organ damage. Pressure has been under excellent control. Currently normal. No other end organ symptoms or findings. Therapy reviewed regarding management of hypertension and includes salt restriction and Coreg, Lisinopril and Norvasc. #3. Type II Hypercholesterolaemia: Currently taking medication and tolerating well. No interval complaints of any muscle pain or arthralgia. No significant liver changes with medications. Last lipid panel: fair control. Therapy reviewed regarding treatment of cholesterol management and include diet and Zocor. #4. Hx of hypothyroidism currently stable. Heat intolerance: no Fatigue: no Weight gain: no Difficulty concentrating: no Muscle Symptoms: none Skin Texture: normal Skin Color: normal Currently taking synthroid. #5. Hx of obesity. Currently Class 3 Obesity [place] > 40. Has tried numerous dietary support and supplements with no benefit. Instructed on the health consequences of the obese status particularly cancer - diabetes and heart disease. Discussed other modalities of weight loss no . Potential candidate for bariatric surgery: No. Wishes to be evaluated by Dietary: No and was offered to be evaluated and instructed by manager call center on weight loss diet. Wellness Evaluation PHQ-2 Score Last Two Weeks Last Two Weeks: 0: Not at all 1: Several Days 2: More than half 3: Almost Every day #1. Little interest or pleasure in doing things Score: 0#2. Feeling down, depressed, or hopeless Score: 0Score 0FAST Stage: 1 No functional decline Basic ADLS Ambulation Normal YesEating YesBed Transfer YesWalker NoCane NoFalls NoMultiple Falls NoBathing and Showering YesDressing YesFeeding YesFunctional Mobility YesPersonal Hygiene YesToilet Hygiene YesHome Safety Yes Instrumental ADLS House Work YesTaking Medications YesShopping YesTelephone YesUsing Technology YesTransportation YesPreparing Meals Yes Additional Topics Advanced Directives Not DiscussedLiving Will Not DiscussedDiscussed Smoking Mini Mental Status Exam Time Score: 5Location Score: 5Registration Score: 3Attention Score: 5Recall Score: 3Language Score: 2Repetition Score: 1Sentence Score: 1Reading Score: 1Pentagons Score: 0Command Score: 3 29 Normal Social and Physical Activities Drinking History: One Drink or Less per weekExercise 20 Minutes per Week: No, do not exercise muchDifficulty Driving Car: NoSmoking History: Yes, cigarettes and I might QuitOther Problems: None,Falling,Orthostatic,Trou ble Eating,Teeth Denture Problems,Problems using Telephone,Tiredness or fatigue No Living Will on File! Active Medication ListLisinopril 40 MG (TABLET - ORAL) Once DailyProzac 20 MG (CAPSULE - ORAL) Once DailyOxygen 6 Rest, 8 Active. 10 SleepAspirin 81 MG One DailyLasix 40 MG (TABLET - ORAL) One Twice A DaySynthroid 150 UG TABLET One Daily For ThyroidMultivitamin One DailyZocor 20 MG (TABLET - ORAL) One DailyCoreg 25 MG (TABLET - ORAL) One BidNorvasc 2.5 MG (TABLET - ORAL) One DailyTrelegy Ellipta DailyProair Hfa 0.09 MG /INH (AEROSOL, METERED - INHALATION) Two Puffs Qid PrnCpap As Directed Vaccination and ImmunizationImmunizations and Vaccinations Discussed and Implemented if feasible In the Office. Else referred to pharmacies. ( ) 2023- INFLUENZA( ) 2011- ZOSTAVAX (SHINGLES)( ) 2018-12 TDAP( ) 2015-09 PREVNAR 13( ) 2016- PNEUMOVAX(X) 2023-08 COVID MODERNA(X) 2022- COVID BOOSTER MODERNA( ) 2023-07 RSV( ) 2024-11 PREVNAR 20 Surgical Dypabiw8687-87 Lt. Ayuaytlu7540-24 Rt. Zvbpnqeo3698-50 Vaginal Hysterectomy Preventative TestingPreventative Testing Discussed and Scheduled if Acceptable to Patient ( ) 03/15/2025 Ophthalmology( ) 08/24/2024 Optometry( ) 05/06/2024 Albumin 4.3 G/DL(X) 01/03/2024 LDCT 01/03/2025( ) 07/02/2023 DEXA Scan 07/02/2025(X) 06/14/2022 Mammogram 06/14/2024( ) 07/10/2019 CT Thorax( ) 11/20/2017 Colonoscopy (10 Years) 11/20/2027 Social HistorySmoking Hx: 2 packs of cigarettes per day for 25 years and quit back in 2004.Drinking Hx: Two Pots of coffee per day, < 6 cans of soft drinks per day.Exercise: InfrequentlySexual Hx: Sexually Active Family HistoryMother 81 years oldFather 53 years old3 Brothers 1 living two of COPDMother Hx: CHF, COPDFather Hx: CVA, ASHDBrother Hx: HTN (1) , Type II DM TEST RESULT RANGE UNITSCBC WITH DIFFERENTIAL/PLATELET Date: 05/06/2024WBC 7.8 3.4-10.8 X10E3/ULHEMOGLOBIN 11.7 11.1-15.9 G/DLHEMATOCRIT 36.9 34.0-46.6 %PLATELETS 242 150-450 X10E3/ULLIPID PANEL Date: 05/06/2024HOLESTEROL, TOTAL 162 100-199 MG/DLTRIGLYCERIDES 122 0-149 MG/DLHDL CHOLESTEROL 52 >39 MG/DLLDL CHOL CALC (NIH) 88 0-99 MG/DLCOMP. METABOLIC PANEL (14) Date: 05/06/2024SODIUM 146 134-144 MMOL/LPOTASSIUM 4.4 3.5-5.2 MMOL/LGLUCOSE 102 70-99 MG/DLBUN 21 8-27 MG/DLCREATININE 1.12 0.57-1.00 MG/DLEGFR 51 >59 ML/MIN/1.73A/G RATIO 1.6BILIRUBIN, TOTAL 0.5 0.0-1.2 MG/DLAST (SGOT) 19 0-40 IU/LALKALINE PHOSPHATASE 107 44-121 IU/LALT (SGPT) 15 0-32 IU/LT4, FREE Date: 05/06/2024T4,FREE(DIRECT) 1.05 0.82-1.77 NG/DLTSH Date: 05/06/2024TSH 13.000 0.450-4.500 UIU/ML Conrado Lundy MD [address] [facility], [facility] [address], [place], [address], [facility] [employer] [facility] 04/20/2025 10:38:50 OBGyn Episode No OBEpisode recorded.
--- NOTE | 2025-05-03 13:07 | P.PCNSIX_ITS ---
Six Minute Walk Procedure Procedure Performed Pulmonary Stress Test (6 min walk) Six Minute Walk Six Minute Walk: This is a 6 minute walk test. The test was performed and interpreted in accordance with the 2014 ERS/ATS task force guidelines. Of note the patient wears 4 L at rest and 8 L with activity and the test was performed on 8 L using a walker. Findings: The patient's 4 L nasal cannula oxygen saturation measured by pulse oximetry was 96%, the heart rate was 50 bpm, and the modified Lalito dyspnea score was 0. Patient ambulated on 8 L nasal cannula for 152 meters and oxygen saturation remained 87 to 90%. At the end of the study the heart rate was 87 bpm and the m odified Lalito dyspnea score was 3. The patient did not have desaturations on 4 L at rest and did have desaturations with ambulation on 8 L nasal cannula. In comparison to previous 6 minute walk test on 12/09/2024 on 8 L nasal cannula, she previously stopped twice for 20 seconds and stopped the test at 4 minutes for shortness of breath. Patient's ambulatory distance has now increased from 122 m to 152 m, her linda saturation has decreased from 89% to 87%, and her modified Lalito dyspnea score at the end of the study has decreased from 8 to 3. Clinical correlation recommended.
== END 2025-05-03 08:00 | disposition home or self-care (01) ==
PROVIDERS: PCP Internal Medicine; Visit Provider Internal Medicine Pulmonary Disease
DX: J44.9 Chronic obstructive pulmonary disease, unspecified (principal); R09.02 Hypoxemia
CPT/HCPCS: 94618

== ENCOUNTER 2025-10-12 13:41 | Outpatient (CLI) | payer MEDICARE, SELFPAY ==
--- NOTE | ~2025-10-12 | DEXA_ITS ---
Bone Density Report Name: KULWANT GREEN Age: 79 Sex: Female Ethnicity: White Date of : 1945 Indication: postmenopausal; screening for osteoporosis; height loss; asthma or emphysema; Referring Provider: NELLY, CONRADO Torrez Study: Bone densitometry was performed. Exam Date: October 12, 2025 Accession number: [id number] Bone Density: Region BMD T-score Z-score Classification AP Spine(L1-L4) 1.147 0.9 3.5 Normal Femoral Neck (Left) 0.900 0.5 2.7 Normal Total Hip (Left) 0.994 0.4 2.4 Normal Femoral Neck (Right) 0.925 0.7 2.9 Normal Total Hip (Right) 0.997 0.5 2.4 Normal Total Hip Mean 0.996 0.5 2.4 Normal World Health Organization criteria for BMD impression classify patients as: Normal (T-score at or above -1.0), Osteopenia (T-score between -1.0 and -2.5), or Osteoporosis (T-score at or below -2.5). 10-year Fracture Risk: FRAX not reported because: All T-scores for Spine Total, Hip Total, Femoral Neck at or above -1.0 Previous Exams: -- Region Exam Age BMD T-score BMD Change BMD Change Date g/cm2 vs Baseline vs Previous -- Total Hip(Left) 10/12/2025 79 0.994 0.4 -1.6% -4.9%# 07/02/2023 77 1.045 0.8 3.4%# 3.4%# 06/20/2020 74 1.011 0.6 Total Hip(Right) 10/12/2025 79 0.997 0.5 1.4% -2.6%# 07/02/2023 77 1.024 0.7 4.1%# 4.1%# 06/20/2020 74 0.984 0.3 -- *Denotes significance at 95% confidence level, LSC for Total Hip = 0.027 g/cm2 # Denotes dissimilar scan types or analysis methods Clinical Information Provided by Patient: Has used the following medications: Vitamin D Has the following medical conditions: Asthma or Emphysema, COPD Patient maximum height was 62 Menopause Age: 37 No regular weight bearing exercise Drinks caffeinated beverages Onset of menses at age 16 Number of children 2 Impression: The patient has normal bone mass. Unable to evaluate interval change due to the use of different scan modes. Discussion: LOW RISK OF FRACTURE; BONE DENSITY IS WELL ABOVE THE MINIMUM DESIRABLE LEVEL AND ABOVE AVERAGE FOR AGE AND SEX AT ALL SKELETAL SITES TESTED. This person's bone density is above expected limits for age and sex. This is rarely clinically significant, but should be pursued if there are significant musculoskeletal complaints. The patient should follow a healthful lifestyle (good nutrition with adequate calcium and vitamin D, and appropriate weight-bearing exercise). Follow-Up: Consider repeating this study in 5 years or sooner if there is some new clinical indication. Reported by: ELMA on 10/12/2025 2:05:00 PM. Reviewed, dictated and finalized at location A.
--- NOTE | ~2025-10-12 | CT_ITS ---
EXAMINATION:CT lung screening DATE: 10/12/2025 14:35 INDICATION: 30+ pack year history of smoking for quitting 10 years ago. COPD. TECHNIQUE: Computed tomography (CT) of the chest was performed without intravenous contrast. Automated exposure control and iterative reconstruction technique were employed. The dose-length product (DLP) was 201.35 mGy-cm. COMPARISON: CT angiogram chest dated 07/17/2024. FINDINGS: Significant centrilobular pattern of emphysema of the lungs. Severely dilated central pulmonary artery consistent with pulmonary arterial hypertension. No pulmonary mass or nodules are seen. Moderate coronary artery calcification of anterior descending and circumflex coronary arteries. No pleural or pericardial effusion. IMPRESSION: 1. Significant emphysematous lungs with severe pulmonary arterial hypertension. No focal pulmonary mass. Continue annual low-dose screening. Lung-rads category 2 2. Incidental findings of moderate coronary artery calcification as mentioned above. Partially evaluated upper abdominal aorta with mild ectasia measuring 29 mm at L2-3 level. Abdominal aortic screening with ultrasound is suggested. Reviewed, dictated and finalized at location T. AL CLERK IMPRESSION: 1. Significant emphysematous lungs with severe pulmonary arterial hypertension. No focal pulmonary mass. Continue annual low-dose screening. Lung-rads categor y 2 2. Incidental findings of moderate coronary artery calcification as mentioned a kali. Partially evaluated upper abdominal aorta with mild ectasia measuring 29 mm at L2-3 level. Abdominal aortic screening with ultrasound is suggested.
--- NOTE | ~2025-10-12 | MM_ITS ---
EXAMINATION: MM screening fernando BI w alyson HISTORY: Screening TECHNIQUE: Craniocaudal and mediolateral oblique 3-D tomosynthesis images were obtained and synthetic 2-D images were generated. CAD analysis was submitted and interpreted. COMPARISON: Comparison to multiple prior studies sequentially, with oldest reviewed study dated 04/04/2017. BREAST PARENCHYMAL COMPOSITION: Not dense: There are scattered areas of fibroglandular density. FINDINGS: There is no evidence of suspicious mass, calcification, or architectural distortion to suggest malignancy in either breast. There has been no suspicious interval change. IMPRESSION: 1. No mammographic evidence of malignancy. 2. Recommend routine screening mammography in one year. BI-RADS Category 1: Negative Reviewed, dictated and finalized at location O. NO CHANGE ATTENDANT
== END 2025-10-12 13:42 | disposition home or self-care (01) ==
LOC: MICIMG 13:42
PROVIDERS: PCP Internal Medicine; Visit Provider Internal Medicine
DX: Z12.2 Encounter for screening for malignant neoplasm of respiratory organs (principal); Z12.31 Encounter for screening mammogram for malignant neoplasm of breast; M81.0 Age-related osteoporosis without current pathological fracture; Z87.891 Personal history of nicotine dependence
CPT/HCPCS: 71271; 77063; 77067; 77080